=== PATIENT | male | born 1960 | race American Indian/Alaskan Native ===

== ENCOUNTER 2016-08-11 20:52 | Emergency (ER) | payer MEDICAID, OTHER, SELFPAY ==
[2016-08-11] MEDS ORDERED: Sodium Chloride 0.9% 10 ML Syringe FLUSH PRN (21:05)
[2016-08-11 21:58] VITALS: BP 171/81
--- NOTE | 2016-08-11 21:58 | EDM.PDOC ---
ED HPI NEURO - General Chief Complaint: Neuro Symptoms/Deficits Stated Complaint: STROKE Time Seen by Provider: 08/11/16 21:03 Source: Reports: Patient, Family, Old records, RN notes reviewed History Limitations: Reports: No limitations - History of Present Illness INITIAL COMMENTS - FREE TEXT/NARRATIVE: 56-year-old gentleman presents emergency department today with complaint of difficulty speaking symptoms started around 20:00 with problems finding words and problems speaking words, he also has dizziness the dizziness started about 24 hours prior, he does have a history of a pontine stroke one year ago - Related Data Allergies/ADRs: Allergies Allergy/AdvReac Type Severity Reaction Status Date / Time atenolol [From Tenormin] Allergy Cannot Verified 08/11/16 21:19 Remember cephalexin monohydrate Allergy Hives Verified 08/11/16 21:19 [From Keflex] lisinopril [From Zestril] Allergy Cannot Verified 08/11/16 21:19 Remember penicillin V potassium Allergy Hives Verified 08/11/16 21:19 [From Pen-Vee K] Home Meds: Home Meds Escitalopram [Lexapro] 10 mg PO DAILY 09/19/14 [History] Losartan [Cozaar] 100 mg PO DAILY 09/19/14 [History] amLODIPine Besylate [Amlodipine Besylate] 10 mg PO DAILY 09/19/14 [History] metFORMIN [Glucophage] 1,000 mg PO BID 09/19/14 [History] Gabapentin [Gabapentin] 600 mg PO TID 02/12/15 [History] Clopidogrel [Plavix] 75 mg PO DAILY 11/03/15 [History] Omeprazole 20 mg PO DAILY 11/03/15 [History] atorvaSTATin [Lipitor] 40 mg PO DAILY 11/03/15 [History] [place]-3 Fatty Acids [Fish Oil] 600 mg PO BID 08/11/16 [History] Past Medical History HEENT History: Reports: Allergic rhinitis, Impaired vision Cardiovascular History: Reports: High cholesterol, Hypertension Other Cardiovascular History: angiogram Gastrointestinal History: Reports: Chronic diarrhea, GERD Other Gastrointestinal History: due to antx therapy Genitourinary History: Reports: UTI, recurrent Musculoskeletal History: Reports: Fracture, Osteoarthritis Neurological History: Reports: CVA, Neuropathy, diabetic Psychiatric History: Reports: Depression Endocrine/Metabolic History: Reports: Diabetes, type II, Obesity/BMI 30+ Dermatologic History: Reports: Eczema Other Dermatologic History: toe amp rash from sun - Infectious Disease History Infectious Disease History: Reports: Chicken pox - Past Surgical History HEENT Surgical History: Reports: Tonsillectomy GI Surgical History: Reports: Appendectomy, Colonoscopy Male Surgical History: Reports: Other (see below) Other Male Surgeries/Procedures: Cystoscopy Musculoskeletal Surgical History: Reports: Amputation Other Musculoskeletal Surgeries/Procedures:: right foot 2nd and 3rd toe amp Dermatological Surgical History: Reports: Skin graft Social & Family History - Tobacco Use Smoking Status *Q: Former Smoker Years of Tobacco use: 40 Packs/Tins Daily: 1.5 Used Tobacco, but Quit: Yes Month Tobacco Last Used: 06/2016 Second Hand Smoke Exposure: Yes - Caffeine Use Caffeine Use: Reports: Coffee - Alcohol Use Days Per Week of Alcohol Use: 5 Number of Drinks Per Day: 4 Total Drinks Per Week: 20 - Recreational Drug Use Recreational Drug Use: No Drug Use in Last 12 Months: Yes Recreational Drug Type: Reports: Marijuana/Hashish Recreational Drug Use Frequency: Not Used In Over 5 Months ED ROS GENERAL - Review of Systems Review Of Systems: See Below Constitutional: Reports: no symptoms Respiratory: Reports: No Symptoms Cardiovascular: Reports: No symptoms GI/Abdominal: Reports: No symptoms : Reports: no symptoms Neurological: Reports: Trouble Speaking, Other (difficulty with movement in the left arm) ED EXAM, NEURO - Physical Exam Exam: See Below Text/Narrative:: General: male, moderate distress, crying, alert and oriented x3 HEENT: head is atraumatic normocephalic, eyes pupils equal round reactive to light sclera clear no conjunctivitis appreciated. Ears tympanic membrane clear and ospina on the right blocked by cerumen on the left. Nose no septal deviation, nares are clear, no blood present. Mouth mucosa is moist and pink no erythema or exudate noted in soft palate, tongue is midline uvula is midline, dentition is intact. Neck: Supple no thyromegaly no tracheal deviation. Nodes: Cervical nodes subclavicular nodes nontender no palpable lymphadenopathy noted. Lungs: clear to auscultation bilaterally with symmetrical respirations, no adventitious noise appreciated. CV: Regular rate and rhythm S1 and S2 appreciated no murmurs rubs or gallops noted. Abdomen: Soft, nontender, no palpable masses or organomegaly appreciated, no distention no guarding bowel sounds are present, [scars ]. Neuro: Cranial nerves II through XII grossly intact, power is 5 out 5 in upper and lower extremities, finger to nose without difficulty on the right finger to nose on the left is not as smooth as well as rapid alternating movements is disjointed on the left not as smooth, no dysdiadochokinesis Skin: Warm and dry, intact Extremities: No lower extremity edema appreciated Course - Vital Signs Last Recorded V/S: Last Vital Signs Temp 98.3 F 08/11/16 20:59 Pulse 95 08/11/16 20:59 Resp 17 08/11/16 21:27 BP 174/81 H 08/11/16 21:27 Pulse Ox 97 08/11/16 21:27 - Orders/Labs/Meds Orders: Active Orders 24 hr Category Date Time Status EKG Documentation Completion [RC] ASDIRECTED Care 08/11/16 21:05 Active Peripheral IV Care [RC] . DIRECTED Care 08/11/16 21:05 Active Head wo Cont [CT] Urgent Exams 08/11/16 21:05 Taken Sodium Chloride 0.9% [Saline Flush] Med 08/11/16 21:05 Active 10 ml FLUSH ASDIRECTED PRN Peripheral IV Insertion Adult [OM.PC] Urgent Oth 08/11/16 21:05 Ordered EKG 12 Lead [EK] Urgent Ther 08/11/16 21:05 Ordered Medication Orders Sodium Chloride (Saline Flush) 10 ml FLUSH ASDIRECTED PRN PRN Reason: Keep Vein Open Last Admin: 08/11/16 21:29 Dose: 10 ml Labs: Laboratory Tests 08/11/16 08/11/16 08/11/16 Range/Units 21:14 21:14 21:14 WBC 7.2 (4.5-11.0) K/uL RBC 4.96 (4.30-5.90) M/uL Hgb 14.2 (12.0-15.0) g/dL Hct 40.8 (40.0-54.0) % MCV 82 (80-98) fL MCH 29 (27-31) pg MCHC 35 (32-36) % Plt Count 204 (150-400) K/uL Neut % (Auto) 63 (36-66) % Lymph % (Auto) 26 (24-44) % [place] % (Auto) 9 H (2-6) % Eos % (Auto) 2 (2-4) % Baso % (Auto) 1 (0-1) % PT 10.3 (9.5-12.0) sec INR 0.97 (0.80-1.20) APTT 26.1 L (27.0-36.0) sec Sodium 136 L (140-148) mmol/L Potassium 3.9 (3.6-5.2) mmol/L Chloride 100 (100-108) mmol/L Carbon Dioxide 29 (21-32) mmol/L Anion Gap 10.9 (5.0-14.0) mmol/L BUN 14 (7-18) mg/dL Creatinine 1.1 (0.8-1.3) mg/dL Est Cr Clr Drug Dosing 79.27 mL/min Estimated GFR (MDRD) > 60 (>60) Glucose 307 H (74-106) mg/dL Calcium 8.8 (8.5-10.1) mg/dL Total Bilirubin 0.5 (0.2-1.0) mg/dL AST 22 (15-37) U/L ALT 31 (12-78) U/L Alkaline Phosphatase 71 (46-116) U/L Total Protein 6.4 (6.4-8.2) g/dL Albumin 2.7 L (3.4-5.0) g/dL Globulin 3.7 H (2.3-3.5) g/dL Albumin/Globulin Ratio 0.7 L (1.2-2.2) Meds: Medications Generic Name Dose Route Start Last Admin Trade Name Freq PRN Reason Stop Dose Admin Sodium Chloride 10 ml 08/11/16 21:05 08/11/16 21:29 Saline Flush FLUSH 10 ml ASDIRECTED PRN Administration Keep Vein Open Departure - Departure Time of Disposition: 21:57 Disposition: DC/Tfer to Acute Hospital 02 Clinical Impression: TIA (transient ischemic attack) Qualifiers: Transient cerebral ischemia type: other Qualified Code(s): G45.8 - Other transient cerebral ischemic attacks and related syndromes Forms: ED Department Discharge - My Orders Last 24 Hours: My Active Orders 08/11/16 21:05 EKG Documentation Completion [RC] ASDIRECTED Peripheral IV Care [RC] . DIRECTED Head wo Cont [CT] Urgent Sodium Chloride 0.9% [Saline Flush] 10 ml FLUSH ASDIRECTED PRN Peripheral IV Insertion Adult [OM.PC] Urgent EKG 12 Lead [EK] Urgent - Assessment/Plan Last 24 Hours: My Active Orders 08/11/16 21:05 EKG Documentation Completion [RC] ASDIRECTED Peripheral IV Care [RC] . DIRECTED Head wo Cont [CT] Urgent Sodium Chloride 0.9% [Saline Flush] 10 ml FLUSH ASDIRECTED PRN Peripheral IV Insertion Adult [OM.PC] Urgent EKG 12 Lead [EK] Urgent Plan: Assessment Acuity = acute Site and laterality = TIA complicated patient with known history of pontine stroke one year ago on aspirin and Plavix Etiology = probable small vessel disease Manifestations = difficulty with speech dysarthria and dysphagia Location of injury = home Lab values = CBC, CMP within normal limits CT scan shows no acute process EKG demonstrates a sinus rhythm Plan discussed the case with neurology manager documentation because he had history of this dizziness within the last 24 hours and the history of the pontine stroke one year ago elected not to give TPA as the risks outweighed the benefits, agreed to accept the patient at a [facility] for further evaluation Patient was in agreement with the plan all questions were answered, they were instructed to return to the emergency department or call for worsening symptoms. This note was dictated using [employer] voice recognition software please call with any questions.
== END 2016-08-11 22:35 ==
LOC: JP.ED 20:52
DX: G45.8 Other transient cerebral ischemic attacks and related syndromes (principal); E78.00 Pure hypercholesterolemia, unspecified; I10 Essential (primary) hypertension; K21.9 Gastro-esophageal reflux disease without esophagitis; Z87.440 Personal history of urinary (tract) infections; Z86.73 Personal history of transient ischemic attack (TIA), and cerebral infarction without residual deficits; F32.9 Major depressive disorder, single episode, unspecified; E11.9 Type 2 diabetes mellitus without complications; E66.9 Obesity, unspecified; Z79.899 Other long term (current) drug therapy; Z98.890 Other specified postprocedural states; Z90.49 Acquired absence of other specified parts of digestive tract; Z87.891 Personal history of nicotine dependence; Z88.1 Allergy status to other antibiotic agents; Z88.0 Allergy status to penicillin; Z88.8 Allergy status to other drugs, medicaments and biological substances
CPT/HCPCS: 36415; 70450; 80053; 85025; 85610; 85730; 93005; 99285; J7050; 93010; 99284

== ENCOUNTER 2016-12-25 22:18 | Emergency (ER) | payer MEDICAID, SELFPAY ==
--- NOTE | 2016-12-25 23:44 | EDM.PDOC ---
ED HPI GENERAL MEDICAL PROBLEM - General Chief Complaint: Lower Extremity Injury/Pain Stated Complaint: RIGHT FOOT LITTLE TOE PAIN, DIABETIC Time Seen by Provider: 12/25/16 23:34 Source of Information: Reports: Patient, Family, RN Notes Reviewed History Limitations: Reports: No Limitations - History of Present Illness INITIAL COMMENTS - FREE TEXT/NARRATIVE: 86-year-old gentleman presents emergency department today with wound on his right foot, he has a known history of diabetes mellitus type 2 with loss of digits on the right foot consistent with peripheral vascular disease, he states he noticed he's had skin breakdown over the last couple days denies any fevers nausea vomiting shortness breath chest pain no red streaks going up the foot right small toe Pain Score (Numeric/FACES): 5 - Related Data Allergies Allergy/AdvReac Type Severity Reaction Status Date / Time atenolol [From Tenormin] Allergy Cannot Verified 12/25/16 23:24 Remember cephalexin monohydrate Allergy Hives Verified 12/25/16 23:24 [From Keflex] lisinopril [From Zestril] Allergy Cannot Verified 12/25/16 23:24 Remember penicillin V potassium Allergy Hives Verified 12/25/16 23:24 [From Pen-Vee K] Home Meds: Home Meds Escitalopram [Lexapro] 10 mg PO DAILY 09/19/14 [History] Losartan [Cozaar] 100 mg PO DAILY 09/19/14 [History] amLODIPine Besylate [Amlodipine Besylate] 10 mg PO DAILY 09/19/14 [History] metFORMIN [Glucophage] 1,000 mg PO BID 09/19/14 [History] Gabapentin [Gabapentin] 600 mg PO TID 02/12/15 [History] Clopidogrel [Plavix] 75 mg PO DAILY 11/03/15 [History] Omeprazole 20 mg PO DAILY 11/03/15 [History] atorvaSTATin [Lipitor] 40 mg PO DAILY 11/03/15 [History] [place]-3 Fatty Acids [Fish Oil] 600 mg PO BID 08/11/16 [History] Famotidine [Pepcid] 20 mg PO DAILY 12/25/16 [History] Naproxen Sodium [Aleve] 220 mg PO ASDIRECTED PRN 12/25/16 [History] Past Medical History HEENT History: Reports: Allergic Rhinitis, Impaired Vision Cardiovascular History: Reports: High Cholesterol, Hypertension Other Cardiovascular History: angiogram Gastrointestinal History: Reports: Chronic Diarrhea, GERD Other Gastrointestinal History: due to antx therapy Genitourinary History: Reports: UTI, Recurrent Musculoskeletal History: Reports: Fracture, Osteoarthritis Neurological History: Reports: CVA, Neuropathy, Diabetic Psychiatric History: Reports: Depression Endocrine/Metabolic History: Reports: Diabetes, Type II, Obesity/BMI 30+ Other Dermatologic History: toe amp rash from sun - Infectious Disease History Infectious Disease History: Reports: Chicken Pox - Past Surgical History Head Surgeries/Procedures: Reports: None HEENT Surgical History: Reports: None Cardiovascular Surgical History: Reports: None Respiratory Surgical History: Reports: None GI Surgical History: Reports: None Neurological Surgical History: Reports: None Musculoskeletal Surgical History: Reports: Amputation Other Musculoskeletal Surgeries/Procedures:: right foot 2nd and 3rd toe amp Oncologic Surgical History: Reports: None Dermatological Surgical History: Reports: Skin Graft Social & Family History - Tobacco Use Smoking Status *Q: Current Every Day Smoker Years of Tobacco use: 30 Packs/Tins Daily: 0.5 Used Tobacco, but Quit: No Month Tobacco Last Used: 06/2016 Second Hand Smoke Exposure: Yes - Caffeine Use Caffeine Use: Reports: Coffee, Soda - Alcohol Use Days Per Week of Alcohol Use: 5 Number of Drinks Per Day: 4 Total Drinks Per Week: 20 - Recreational Drug Use Recreational Drug Use: No Drug Use in Last 12 Months: Yes Recreational Drug Type: Reports: Marijuana/Hashish Recreational Drug Use Frequency: Not Used In Over 5 Months Review of Systems - Review of Systems Review Of Systems: See Below Constitutional: Denies: Fever Respiratory: Reports: No Symptoms Cardiovascular: Reports: No Symptoms GI/Abdominal: Reports: No Symptoms Skin: Reports: Wound ED EXAM, GENERAL - Physical Exam Exam: See Below Free Text/Narrative:: Examination of left foot he is missing digits 2,3 digit 4 appears to be intact however digit #5 has an open wound on the distal tip it is tender to touch it is erythematous with a black portion of the distal tip Exam Limited By: No Limitations General Appearance: Alert, WD/WN, No Apparent Distress Course - Vital Signs Last Recorded V/S: Last Vital Signs Temp 96.6 F 12/26/16 01:57 Pulse 77 12/26/16 01:57 Resp 16 12/26/16 01:57 BP 127/71 12/26/16 01:57 Pulse Ox 95 12/26/16 01:57 - Orders/Labs/Meds Orders: Active Orders 24 hr Category Date Time Status Peripheral IV Care [RC] . DIRECTED Care 12/26/16 01:07 Active LACTIC ACID [CHEM] Stat Lab 12/25/16 23:57 Received Levofloxacin/Dextrose 5%-Water [Levaquin in D5W 750 MG/ Med 12/26/16 01:06 Active 150 ML] 750 mg Premix Bag 1 bag IV ONETIME Sodium Chloride 0.9% [Saline Flush] Med 12/26/16 01:06 Active 10 ml FLUSH ASDIRECTED PRN Peripheral IV Insertion Adult [OM.PC] Urgent Oth 12/26/16 01:06 Ordered Medication Orders Levofloxacin/Dextrose 750 mg/ (Premix) 150 mls @ 100 mls/hr IV ONETIME ONE Stop: 12/26/16 02:35 Sodium Chloride (Saline Flush) 10 ml FLUSH ASDIRECTED PRN PRN Reason: Keep Vein Open Last Admin: 12/26/16 01:54 Dose: 10 ml Labs: Laboratory Tests 12/25/16 12/25/16 Range/Units 23:39 23:57 WBC 6.7 (4.5-11.0) K/uL RBC 4.72 (4.30-5.90) M/uL Hgb 13.0 (12.0-15.0) g/dL Hct 37.9 L (40.0-54.0) % MCV 80 (80-98) fL MCH 28 (27-31) pg MCHC 34 (32-36) % Plt Count 218 (150-400) K/uL Neut % (Auto) 64 (36-66) % Lymph % (Auto) 26 (24-44) % [place] % (Auto) 9 H (2-6) % Eos % (Auto) 2 (2-4) % Baso % (Auto) 0 (0-1) % Sodium 134 L (140-148) mmol/L Potassium 3.8 (3.6-5.2) mmol/L Chloride 99 L (100-108) mmol/L Carbon Dioxide 27 (21-32) mmol/L Anion Gap 11.8 (5.0-14.0) mmol/L BUN 15 (7-18) mg/dL Creatinine 1.4 H (0.8-1.3) mg/dL Est Cr Clr Drug Dosing 62.28 mL/min Estimated GFR (MDRD) 53 L (>60) Glucose 109 H (74-106) mg/dL Calcium 8.6 (8.5-10.1) mg/dL Total Bilirubin 0.6 (0.2-1.0) mg/dL AST 23 (15-37) U/L ALT 18 (12-78) U/L Alkaline Phosphatase 109 (46-116) U/L C-Reactive Protein 2.19 H (0.0-0.3) mg/dL Total Protein 6.6 (6.4-8.2) g/dL Albumin 2.6 L (3.4-5.0) g/dL Globulin 4.0 H (2.3-3.5) g/dL Albumin/Globulin Ratio 0.7 L (1.2-2.2) Meds: Medications Generic Name Dose Route Start Last Admin Trade Name Freq PRN Reason Stop Dose Admin Levofloxacin/Dextrose 750 mg/ 150 mls @ 100 mls/hr 12/26/16 01:06 Premix IV 12/26/16 02:35 ONETIME ONE Sodium Chloride 10 ml 12/26/16 01:06 12/26/16 01:54 Saline Flush FLUSH 10 ml ASDIRECTED PRN Administration Keep Vein Open Discontinued Medications Generic Name Dose Route Start Last Admin Trade Name Freq PRN Reason Stop Dose Admin Hydromorphone HCl 1 mg 12/26/16 01:31 12/26/16 01:49 Dilaudid IVPUSH 12/26/16 01:32 1 mg ONETIME ONE Administration Clindamycin Phosphate 600 mg/ 54 mls @ 100 mls/hr 12/26/16 01:06 12/26/16 01: 54 Sodium Chloride IV 12/26/16 01:38 100 mls/hr ONETIME ONE Administration Departure - Departure Time of Disposition: 03:30 Disposition: Home, Self-Care 01 Condition: Fair Clinical Impression: Diabetic foot ulcer Qualifiers: Diabetic foot ulcer location: toe Diabetes mellitus type: type 2 Laterality: right Non-pressure ulcer stage: with fat layer exposed Qualified Code(s): E11.621 - Type 2 diabetes mellitus with foot ulcer; L97.512 - Non-pressure chronic ulcer of other part of right foot with fat layer exposed - Discharge Information Forms: ED Department Discharge Additional Instructions: Take full course of antibiotics, please follow-up with Dr. Jama and wound care next week - My Orders Last 24 Hours: My Active Orders 12/25/16 23:57 LACTIC ACID [CHEM] Stat 12/26/16 01:06 Levofloxacin/Dextrose 5%-Water [Levaquin in D5W 750 MG/150 ML] 750 mg Premix Bag 1 bag IV ONETIME Sodium Chloride 0.9% [Saline Flush] 10 ml FLUSH ASDIRECTED PRN Peripheral IV Insertion Adult [OM.PC] Urgent 12/26/16 01:07 Peripheral IV Care [RC] . DIRECTED - Assessment/Plan Last 24 Hours: My Active Orders 12/25/16 23:57 LACTIC ACID [CHEM] Stat 12/26/16 01:06 Levofloxacin/Dextrose 5%-Water [Levaquin in D5W 750 MG/150 ML] 750 mg Premix Bag 1 bag IV ONETIME Sodium Chloride 0.9% [Saline Flush] 10 ml FLUSH ASDIRECTED PRN Peripheral IV Insertion Adult [OM.PC] Urgent 12/26/16 01:07 Peripheral IV Care [RC] . DIRECTED Plan: Assessment Acuity = acute Site and laterality = diabetic foot ulcer Etiology = probably related to peripheral vascular disease Manifestations = pain and infection Location of injury = Home Lab values = CBC within normal limits sodium low at 134 consistent hyponatremia creatinine elevated at 1.4 consistent with chronic renal failure stage GIII a, lactic acid normal at 1.6, CRP mildly elevated 2.19 Plan He was given 1 dose of levofloxacin and clindamycin started on both those antibiotics orally he'll be set up with Dr. Hall in wound care next week Patient was in agreement with the plan all questions were answered, they were instructed to return to the emergency department or call for worsening symptoms. This note was dictated using [employer] voice recognition software please call with any questions.
[2016-12-26] MEDS ORDERED: Levofloxacin/Dextrose 5%-Water 750 MG in Premix Bag 1 BAG IV ONE (01:06)
[2016-12-26] MEDS ORDERED: Sodium Chloride 0.9% 10 ML Syringe FLUSH PRN (01:06)
[2016-12-26] MEDS ORDERED: HYDROmorphone 1 MG/ML Syringe IVPUSH ONE ×2 (01:31→03:54)
[2016-12-26 01:58] VITALS: BP 127/71
== END 2016-12-26 04:20 | disposition home or self-care (01) ==
LOC: JP.ED 22:18
DX: E11.621 Type 2 diabetes mellitus with foot ulcer (principal); L97.521 Non-pressure chronic ulcer of other part of left foot limited to breakdown of skin; E78.00 Pure hypercholesterolemia, unspecified; I10 Essential (primary) hypertension; K21.9 Gastro-esophageal reflux disease without esophagitis; M19.90 Unspecified osteoarthritis, unspecified site; E66.9 Obesity, unspecified; F17.210 Nicotine dependence, cigarettes, uncomplicated; F32.9 Major depressive disorder, single episode, unspecified; E11.40 Type 2 diabetes mellitus with diabetic neuropathy, unspecified; Z87.440 Personal history of urinary (tract) infections; Z88.0 Allergy status to penicillin; Z88.8 Allergy status to other drugs, medicaments and biological substances; Z79.899 Other long term (current) drug therapy; Z79.84 Long term (current) use of oral hypoglycemic drugs; Z89.431 Acquired absence of right foot; Z68.31 Body mass index [BMI] 31.0-31.9, adult; Z86.73 Personal history of transient ischemic attack (TIA), and cerebral infarction without residual deficits
CPT/HCPCS: 36415; 80053; 83605; 85025; 86140; 96365; 96367; 96375; 96376; 99284; J1170; J1956; J7050; S0077

== ENCOUNTER 2017-06-17 12:25 | Emergency (ER) | payer MEDICAID, MEDICARE, OTHER ==
[2017-06-17 12:50] VITALS: BP 139/69
[2017-06-17] MEDS ORDERED: traMADol 50 MG Tab PO ONE (13:17)
[2017-06-17] MEDS ORDERED: Diphtheria,Pertussis(Acell),Tetanus Vaccine 0.5 ML SDV IM ONE (13:18)
--- NOTE | 2017-06-17 13:26 | EDM.PDOC ---
ED HPI GENERAL MEDICAL PROBLEM - General Chief Complaint: Neurological Problem Stated Complaint: [facility] Time Seen by Provider: 06/17/17 13:10 Source of Information: Reports: Patient, Family, Old Records History Limitations: Reports: No Limitations - History of Present Illness INITIAL COMMENTS - FREE TEXT/NARRATIVE: 57 yo male with diabetic peripheral neuropathy and diabetic foot ulcers presents with uncontrolled pain in his feet. Not able to sleep due to the pain. Saw our local surgeon regarding the ulcers and was advised to first see a vascular surgeon to see if his circulation could be improved to facilitate healing if any foot surgery were performed. He has not been able to find a ride to [place] to see the vascular surgeon and as a result has missed 3 appts. Is taking gabapentin 600 tid without relief. Had Baclofen 10 mg tid that helped a little, but he is out of it. Is in the process of switching his care from [place] to a local provider. Has not been taking good care of his foot ulcers. Lives alone most of the time. Onset: Gradual Duration: Chronic, Other (months to years) Location: Reports: Lower Extremity, Left, Lower Extremity, Right Quality: Reports: Burning Severity: Severe Improves with: Reports: Medication Worsens with: Reports: Other (time), Movement (touching areas) Context: Reports: Other (AODM) Associated Symptoms: Reports: No Other Symptoms. 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 (see below) (Gabapentin tid) Bilateral Feet Pain Score (Numeric/FACES): 10 - Related Data Allergies Allergy/AdvReac Type Severity Reaction Status Date / Time atenolol [From Tenormin] Allergy Cannot Verified 12/25/16 23:24 Remember cephalexin monohydrate Allergy Hives Verified 12/25/16 23:24 [From Keflex] lisinopril [From Zestril] Allergy Cannot Verified 12/25/16 23:24 Remember penicillin V potassium Allergy Hives Verified 12/25/16 23:24 [From Pen-Vee K] Home Meds: Home Meds Escitalopram [Lexapro] 10 mg PO DAILY 09/19/14 [History] Losartan [Cozaar] 100 mg PO DAILY 09/19/14 [History] amLODIPine Besylate [Amlodipine Besylate] 10 mg PO DAILY 09/19/14 [History] metFORMIN [Glucophage] 1,000 mg PO BID 09/19/14 [History] Gabapentin [Gabapentin] 600 mg PO TID 02/12/15 [History] Clopidogrel [Plavix] 75 mg PO DAILY 11/03/15 [History] atorvaSTATin [Lipitor] 40 mg PO DAILY 11/03/15 [History] Famotidine [Pepcid] 20 mg PO DAILY 12/25/16 [History] Naproxen Sodium [Aleve] 220 mg PO ASDIRECTED PRN 12/25/16 [History] Baclofen 1 tab PO DAILY 06/17/17 [History] Past Medical History HEENT History: Reports: Allergic Rhinitis, Impaired Vision Cardiovascular History: Reports: High Cholesterol, Hypertension Other Cardiovascular History: angiogram Respiratory History: Reports: None Gastrointestinal History: Reports: Chronic Diarrhea, GERD Other Gastrointestinal History: due to antx therapy Genitourinary History: Reports: UTI, Recurrent Musculoskeletal History: Reports: Fracture, Osteoarthritis Neurological History: Reports: CVA, Neuropathy, Diabetic Psychiatric History: Reports: Depression Endocrine/Metabolic History: Reports: Diabetes, Type II, Obesity/BMI 30+ Hematologic History: Reports: None Immunologic History: Reports: None Oncologic (Cancer) History: Reports: None Dermatologic History: Reports: None Other Dermatologic History: toe amp rash from sun - Infectious Disease History Infectious Disease History: Reports: Chicken Pox - Past Surgical History Head Surgeries/Procedures: Reports: None HEENT Surgical History: Reports: None Cardiovascular Surgical History: Reports: None Respiratory Surgical History: Reports: None GI Surgical History: Reports: None Neurological Surgical History: Reports: None Musculoskeletal Surgical History: Reports: Amputation Other Musculoskeletal Surgeries/Procedures:: right foot 2nd and 3rd toe amp Dermatological Surgical History: Reports: Skin Graft Social & Family History - Tobacco Use Smoking Status *Q: Current Every Day Smoker Years of Tobacco use: 40 Packs/Tins Daily: 0.5 Used Tobacco, but Quit: No Month Tobacco Last Used: 06/2016 Second Hand Smoke Exposure: Yes - Caffeine Use Caffeine Use: Reports: Coffee - Alcohol Use Days Per Week of Alcohol Use: 5 Number of Drinks Per Day: 4 Total Drinks Per Week: 20 - Recreational Drug Use Recreational Drug Use: Yes Drug Use in Last 12 Months: Yes Recreational Drug Type: Reports: Marijuana/Hashish Recreational Drug Use Frequency: Rarely ED ROS GENERAL - Review of Systems Review Of Systems: See Below Constitutional: Reports: No Symptoms HEENT: Reports: No Symptoms Respiratory: Reports: No Symptoms Cardiovascular: Reports: No Symptoms Endocrine: Reports: No Symptoms GI/Abdominal: Reports: No Symptoms : Reports: No Symptoms Skin: Reports: Erythema, Wound (diabetic foot ulcers of both feet, the worst is the lateral L foot. ), Change in Color Neurological: Reports: Numbness, Paresthesia, Tingling, Other (burning pain) ED EXAM, NEURO - Physical Exam Exam: See Below Exam Limited By: No Limitations General Appearance: Alert, WD/WN, Mild Distress Respiratory/Chest: No Respiratory Distress, Lungs Clear, Normal Breath Sounds, No Accessory Muscle Use Cardiovascular: Regular Rate, Rhythm, No Edema Neurological: Alert, Normal Mood/Affect, CN II-XII Intact, Oriented x 3, Abnormal Sensation, Abnormal Light Touch Back Exam: Normal Inspection Extremities: Pedal Edema, Redness (of feet without increased warmth.). No: Increased Warmth Psychiatric: Normal Affect, Normal Mood Skin Exam: Erythema, Wound/Incision (diabetic foot ulcers bilat, L lateral foot is worse with foul odor. No increased warmth. Cap refill delayed.) Course - Vital Signs Text/Narrative:: Accucheck 211 Feet soaked, cleaned, and dressings changed. Tramadol 100 mg po with partial relief. Last Recorded V/S: Last Vital Signs Temp 37.7 C 06/17/17 13:02 Pulse 98 06/17/17 13:02 Resp 16 06/17/17 13:02 BP 139/69 06/17/17 13:02 Pulse Ox 98 06/17/17 13:02 - Orders/Labs/Meds Orders: Active Orders 24 hr Category Date Time Status Vaccines to be Administered [RC] PER UNIT ROUTINE Care 06/17/17 13:18 Active Meds: Medications Discontinued Medications Generic Name Dose Route Start Last Admin Trade Name Freq PRN Reason Stop Dose Admin Diphtheria/Tetanus/Acell Pertussis 0.5 ml 06/17/17 13:18 06/17/17 13:24 Adacel IM 06/17/17 13:19 0.5 ml .ONCE ONE Administration Tramadol HCl 100 mg 06/17/17 13:17 06/17/17 13:26 Ultram PO 06/17/17 13:18 100 mg ONETIME ONE Administration Departure - Departure Time of Disposition: 15:00 Disposition: Home, Self-Care 01 Condition: Fair Clinical Impression: Neuropathic pain of both legs Diabetic foot ulcers Qualifiers: Diabetic foot ulcer location: toe Diabetes mellitus type: type 2 Laterality: left Non-pressure ulcer stage: unspecified non-pressure ulcer stage Qualified Code(s): E11.621 - Type 2 diabetes mellitus with foot ulcer; L97.529 - Non- pressure chronic ulcer of other part of left foot with unspecified severity; L97.529 - Non-pressure chronic ulcer of other part of left foot with unspecified severity; L97.529 - Non-pressure chronic ulcer of other part of left foot with unspecified severity; L97.529 - Non-pressure chronic ulcer of other part of left foot with unspecified severity Type 2 diabetes mellitus Qualifiers: Diabetes mellitus complication status: with circulatory complication Diabetes mellitus complication detail: with peripheral angiopathy with gangrene Diabetes mellitus jail insulin use: with jail use Qualified Code(s): E11.52 - Type 2 diabetes mellitus with diabetic peripheral angiopathy with gangrene; Z79.4 - director long term care (current) use of insulin; Z79.4 - long-term (current) use of insulin; Z79.4 - long-term (current) use of insulin; Z79.4 - long-term (current ) use of insulin - Discharge Information Referrals: PCP,None [Primary Care Provider] - Forms: ED Department Discharge - My Orders Last 24 Hours: My Active Orders 06/17/17 13:18 Vaccines to be Administered [RC] PER UNIT ROUTINE - Assessment/Plan Last 24 Hours: My Active Orders 06/17/17 13:18 Vaccines to be Administered [RC] PER UNIT ROUTINE
== END 2017-06-17 15:16 | disposition home or self-care (01) ==
LOC: JP.ED 12:25
DX: E11.621 Type 2 diabetes mellitus with foot ulcer (principal); L97.529 Non-pressure chronic ulcer of other part of left foot with unspecified severity; L97.519 Non-pressure chronic ulcer of other part of right foot with unspecified severity; E11.52 Type 2 diabetes mellitus with diabetic peripheral angiopathy with gangrene; E11.40 Type 2 diabetes mellitus with diabetic neuropathy, unspecified; F17.210 Nicotine dependence, cigarettes, uncomplicated; I10 Essential (primary) hypertension; E78.00 Pure hypercholesterolemia, unspecified; F32.9 Major depressive disorder, single episode, unspecified; Z79.4 Long term (current) use of insulin; Z79.84 Long term (current) use of oral hypoglycemic drugs; Z79.02 Long term (current) use of antithrombotics/antiplatelets; Z79.899 Other long term (current) drug therapy; Z88.0 Allergy status to penicillin; Z88.1 Allergy status to other antibiotic agents; Z88.8 Allergy status to other drugs, medicaments and biological substances; Z23 Encounter for immunization
CPT/HCPCS: 82962; 90471; 90715; 99284; A9270

== ENCOUNTER 2018-10-23 14:02 | Inpatient (IN) | payer MEDICARE ==
--- NOTE | 2018-10-23 14:48 | EDM.PDOC ---
ED HPI GENERAL MEDICAL PROBLEM - General Chief Complaint: Genitourinary Problem Stated Complaint: SWOLLEN TESTICLE Time Seen by Provider: 10/23/18 14:25 Source of Information: Reports: Patient, Old Records History Limitations: Reports: Other (incomplete history) - History of Present Illness INITIAL COMMENTS - FREE TEXT/NARRATIVE: 58 yo male here with gradually increased swelling of his scrotum and foreskin over the past 3 days or so. Has not had a fever. Is uncircumcised. Urine is a different color "milky", but it does not hurt to void. No injury to the area. He is now unable to retract his foreskin. Has poorly controlled diabetes. Has not tried to get into his doctor's office for this. 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 below) (topical antifungal cream) Scrotum Pain Score (Numeric/FACES): 10 - Related Data Allergies Allergy/AdvReac Type Severity Reaction Status Date / Time atenolol [From Tenormin] Allergy Cannot Verified 10/23/18 14:40 Remember cephalexin monohydrate Allergy Hives Verified 10/23/18 14:40 [From Keflex] lisinopril [From Zestril] Allergy Cannot Verified 10/23/18 14:40 Remember penicillin V potassium Allergy Hives Verified 10/23/18 14:40 [From Pen-Vee K] Home Meds: Home Meds Escitalopram [Lexapro] 10 mg PO DAILY 09/19/14 [History] Losartan [Cozaar] 50 mg PO DAILY 09/19/14 [History] amLODIPine Besylate [Amlodipine Besylate] 10 mg PO DAILY 09/19/14 [History] metFORMIN [Glucophage] 1,000 mg PO BID 09/19/14 [History] Gabapentin 600 mg PO QID 02/12/15 [History] Clopidogrel [Plavix] 75 mg PO DAILY 11/03/15 [History] atorvaSTATin [Lipitor] 40 mg PO DAILY 11/03/15 [History] Famotidine [Pepcid] 20 mg PO DAILY 12/25/16 [History] Baclofen 10 mg PO TID #14 tablet 06/17/17 [Rx] Aspirin [Children's Aspirin] 81 mg PO DAILY 09/10/18 [History] Carvedilol 12.5 mg PO DAILY 09/10/18 [History] Past Medical History HEENT History: Reports: Allergic Rhinitis, Impaired Vision Cardiovascular History: Reports: High Cholesterol, Hypertension Other Cardiovascular History: angiogram Respiratory History: Reports: None Gastrointestinal History: Reports: Chronic Diarrhea, GERD Other Gastrointestinal History: due to antx therapy Genitourinary History: Reports: UTI, Recurrent Musculoskeletal History: Reports: Fracture, Osteoarthritis Neurological History: Reports: CVA, Neuropathy, Diabetic Psychiatric History: Reports: Depression Endocrine/Metabolic History: Reports: Diabetes, Type II, Obesity/BMI 30+ Hematologic History: Reports: None Immunologic History: Reports: None Oncologic (Cancer) History: Reports: None Dermatologic History: Reports: None Other Dermatologic History: toe amp rash from sun - Infectious Disease History Infectious Disease History: Reports: Chicken Pox - Past Surgical History Head Surgeries/Procedures: Reports: None HEENT Surgical History: Reports: None Cardiovascular Surgical History: Reports: None Respiratory Surgical History: Reports: None GI Surgical History: Reports: None Neurological Surgical History: Reports: None Musculoskeletal Surgical History: Reports: Amputation Other Musculoskeletal Surgeries/Procedures:: right foot 2nd and 3rd toe amp Dermatological Surgical History: Reports: Skin Graft Social & Family History - Caffeine Use Caffeine Use: Reports: Coffee ED ROS GENERAL - Review of Systems Review Of Systems: See Below Constitutional: Reports: No Symptoms GI/Abdominal: Reports: No Symptoms : Reports: Other (scrotal swelling) Musculoskeletal: Reports: No Symptoms Skin: Reports: No Symptoms ED EXAM, RENAL/ - Physical Exam Exam: See Below Exam Limited By: No Limitations General Appearance: Alert, WD/WN, No Apparent Distress, Obese (Male) Exam: Scrotal Swelling, Scrotum Tenderness (L), Scrotum Tenderness (R) . No: Circumcised, Cremasteric Reflex Neurological: Alert, Oriented, CN II-XII Intact, Normal Cognition, No Motor/ Sensory Deficits Skin Exam: Warm, Dry, Intact, Normal Color, No Rash EKG INTERPRETATION EKG Date: 10/23/18 Time: 15:30 Rhythm: NSR Rate (Beats/Min): 87 [place]: Normal P-Wave: Present QRS: Normal ST-T: Normal QT: Normal Comparison: No Change Course - Vital Signs Text/Narrative:: discussed with Dr. Platt @ [id number] Last Recorded V/S: Last Vital Signs Temp 35.8 C 10/23/18 14:30 Pulse 93 10/23/18 16:34 Resp 16 10/23/18 15:47 BP 135/76 10/23/18 16:34 Pulse Ox 99 10/23/18 16:34 - Orders/Labs/Meds Orders: Active Orders 24 hr Category Date Time Status EKG Documentation Completion [RC] ASDIRECTED Care 10/23/18 15:13 Active UA W/MICROSCOPIC [URIN] Stat Lab 10/23/18 14:37 Ordered Sodium Chloride 0.9% [Normal Saline] 500 ml Med 10/23/18 16:51 Active IV .BOLUS EKG 12 Lead [EK] Routine Ther 10/23/18 15:12 Ordered Medication Orders Sodium Chloride (Normal Saline) 500 mls @ 1,000 mls/hr IV .BOLUS ONE Stop: 10/23/18 17:20 Labs: Laboratory Tests 10/23/18 10/23/18 Range/Units 14:48 14:48 WBC 9.2 (4.5-11.0) K/uL RBC 3.71 L (4.30-5.90) M/uL Hgb 9.9 L D (12.0-15.0) g/dL Hct 31.2 L (40.0-54.0) % MCV 84 (80-98) fL MCH 27 (27-31) pg MCHC 32 (32-36) % Plt Count 189 (150-400) K/uL Sodium 139 L (140-148) mmol/L Potassium 6.2 H* (3.6-5.2) mmol/L Chloride 108 (100-108) mmol/L Carbon Dioxide 26 (21-32) mmol/L Anion Gap 11.2 (5.0-14.0) mmol/L BUN 37 H D (7-18) mg/dL Creatinine 3.0 H D (0.8-1.3) mg/dL Est Cr Clr Drug Dosing TNP Estimated GFR (MDRD) 22 L (>60) Glucose 150 H (74-106) mg/dL Calcium 8.5 (8.5-10.1) mg/dL C-Reactive Protein 3.53 H (0.0-0.3) mg/dL Meds: Medications Generic Name Dose Route Start Last Admin Trade Name Freq PRN Reason Stop Dose Admin Sodium Chloride 500 mls @ 1,000 mls/hr 10/23/18 16:51 Normal Saline IV 10/23/18 17:20 .BOLUS ONE Discontinued Medications Generic Name Dose Route Start Last Admin Trade Name Freq PRN Reason Stop Dose Admin Hydrocodone Bitart/Acetaminophen 1 tab 10/23/18 15:09 10/23/18 15:31 [place] 325-5 Mg PO 10/23/18 15:10 1 tab ONETIME ONE Administration Levofloxacin/Dextrose 750 mg/ 150 mls @ 100 mls/hr 10/23/18 15:11 10/23/18 15 :41 Premix IV 10/23/18 16:40 100 mls/hr ONETIME ONE Administration Sodium Chloride 1,000 mls @ 1,000 mls/hr 10/23/18 15:11 10/23/18 15:38 Normal Saline IV 10/23/18 16:10 1,000 mls/hr .BOLUS ONE Administration Departure - Departure Time of Disposition: 17:00 Disposition: Admitted As Inpatient 68 Clinical Impression: Hyperkalemia, Scrotal swelling Acute renal failure Qualifiers: Acute renal failure type: unspecified Qualified Code(s): N17.9 - Acute kidney failure, unspecified - Discharge Information *PRESCRIPTION DRUG MONITORING PROGRAM REVIEWED*: No *COPY OF PRESCRIPTION DRUG MONITORING REPORT IN PATIENT ANKITA: No Referrals: Sumanth Hill, [employer] PAT[employer] [Primary Care Provider] - Forms: ED Department Discharge - My Orders Last 24 Hours: My Active Orders 10/23/18 14:37 UA W/MICROSCOPIC [URIN] Stat 10/23/18 15:12 EKG 12 Lead [EK] Routine 10/23/18 15:13 EKG Documentation Completion [RC] ASDIRECTED 10/23/18 16:51 Sodium Chloride 0.9% [Normal Saline] 500 ml IV .BOLUS - Assessment/Plan Last 24 Hours: My Active Orders 10/23/18 14:37 UA W/MICROSCOPIC [URIN] Stat 10/23/18 15:12 EKG 12 Lead [EK] Routine 10/23/18 15:13 EKG Documentation Completion [RC] ASDIRECTED 10/23/18 16:51 Sodium Chloride 0.9% [Normal Saline] 500 ml IV .BOLUS
[2018-10-23] MEDS ORDERED: Acetaminophen/HYDROcodone 325-5 MG Tab PO ONE (15:09)
[2018-10-23] MEDS ORDERED: Sodium Chloride 0.9% 1,000 ML IV ONE (15:11)
[2018-10-23] MEDS ORDERED: Levofloxacin/Dextrose 5%-Water 750 MG in Premix Bag 1 BAG IV ONE (15:11)
[2018-10-23] MEDS ORDERED: Sodium Chloride 0.9% 500 ML IV ONE (16:51)
--- NOTE | 2018-10-23 17:14 | PCM.HP ---
H&P History of Present Illness - General Date of Service: 10/23/18 Admit Problem/Dx: Admission Diagnosis/Problem Admission Diagnosis/Problem Cellulitis Source of Information: Patient, Old Records, Provider, RN Notes Reviewed History Limitations: Reports: No Limitations - History of Present Illness Initial Comments - Free Text/Narative: Mr. Turner is a 58-year-old gentleman who was admitted through the emergency department with progressive weakness, scrotal swelling and tenderness, secondary to cellulitis with acute kidney injury and hyperkalemia. He has a known history of long-standing type 2 diabetes mellitus. 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 He felt that he developed a urinary tract infection approximately 5 days prior to admission. Over the last 3 days his experienced significant scrotal tenderness and swelling. He has not been aware of significant fevers or chills, but his appetite has been diminished. On evaluation in the emergency department his creatinine is significantly elevated from baseline and his potassium is elevated at 6.2. Scrotum Pain Score (Numeric/FACES): 10 - Related Data Allergies/Adverse Reactions: Allergies Allergy/AdvReac Type Severity Reaction Status Date / Time atenolol [From Tenormin] Allergy Cannot Verified 10/23/18 14:40 Remember cephalexin monohydrate Allergy Hives Verified 10/23/18 14:40 [From Keflex] lisinopril [From Zestril] Allergy Cannot Verified 10/23/18 14:40 Remember penicillin V potassium Allergy Hives Verified 10/23/18 14:40 [From Pen-Vee K] Home Medications: Home Meds Escitalopram [Lexapro] 10 mg PO DAILY 09/19/14 [History] Losartan [Cozaar] 50 mg PO DAILY 09/19/14 [History] amLODIPine Besylate [Amlodipine Besylate] 10 mg PO DAILY 09/19/14 [History] metFORMIN [Glucophage] 1,000 mg PO BIDMEALS 09/19/14 [History] Gabapentin 600 mg PO QID 02/12/15 [History] Clopidogrel [Plavix] 75 mg PO DAILY 11/03/15 [History] atorvaSTATin [Lipitor] 40 mg PO DAILY 11/03/15 [History] Famotidine [Pepcid] 20 mg PO DAILY 12/25/16 [History] Baclofen 10 mg PO TID #14 tablet 06/17/17 [Rx] Aspirin [Children's Aspirin] 81 mg PO DAILY 09/10/18 [History] Carvedilol 12.5 mg PO DAILY 09/10/18 [History] Past Medical History HEENT History: Reports: Allergic Rhinitis, Impaired Vision Cardiovascular History: Reports: High Cholesterol, Hypertension Other Cardiovascular History: angiogram Respiratory History: Reports: None Gastrointestinal History: Reports: Chronic Diarrhea, GERD Other Gastrointestinal History: due to antx therapy Genitourinary History: Reports: UTI, Recurrent Musculoskeletal History: Reports: Fracture, Osteoarthritis Neurological History: Reports: CVA, Neuropathy, Diabetic Psychiatric History: Reports: Depression Endocrine/Metabolic History: Reports: Diabetes, Type II, Obesity/BMI 30+ Hematologic History: Reports: None Immunologic History: Reports: None Oncologic (Cancer) History: Reports: None Dermatologic History: Reports: None Other Dermatologic History: toe amp rash from sun - Infectious Disease History Infectious Disease History: Reports: Chicken Pox - Past Surgical History Head Surgeries/Procedures: Reports: None HEENT Surgical History: Reports: None Cardiovascular Surgical History: Reports: None Respiratory Surgical History: Reports: None GI Surgical History: Reports: None Neurological Surgical History: Reports: None Musculoskeletal Surgical History: Reports: Amputation Other Musculoskeletal Surgeries/Procedures:: right foot 2nd and 3rd toe amp Dermatological Surgical History: Reports: Skin Graft Social & Family History - Tobacco Use Smoking Status *Q: Current Every Day Smoker Years of Tobacco use: 35 Packs/Tins Daily: 1 - Caffeine Use Caffeine Use: Reports: Coffee - Recreational Drug Use Recreational Drug Type: Reports: Marijuana/Hashish H&P Review of Systems - Review of Systems: Review Of Systems: See Below General: Reports: Malaise, Weakness, Fatigue. Denies: Fever, Chills HEENT: Reports: No Symptoms Pulmonary: Reports: No Symptoms Cardiovascular: Reports: No Symptoms Gastrointestinal: Reports: No Symptoms Genitourinary: Reports: Frequency, Burning. Denies: Hematuria, Discharge Musculoskeletal: Reports: No Symptoms Skin: Reports: Other (Scrotal pain and swelling) Psychiatric: Reports: No Symptoms Neurological: Reports: No Symptoms Hematologic/Lymphatic: Reports: No Symptoms Immunologic: Reports: No Symptoms Exam - Exam Exam: See Below - Vital Signs Vital Signs: Last Vital Signs Temp 96.5 F 10/23/18 14:30 Pulse 93 10/23/18 16:34 Resp 16 10/23/18 15:47 BP 135/76 10/23/18 16:34 Pulse Ox 99 10/23/18 16:34 Weight: 280 lb - Exam Quality Assessment: DVT Prophylaxis General: Alert, Oriented, Cooperative, Moderate Distress HEENT: Conjunctiva Clear, Hearing Intact, Normal Nasal Septum, Posterior Pharynx Clear, Pupils Equal. No: Mucosa Moist & Henriette Neck: Supple, Trachea Midline, +2 Carotid Pulse wo Bruit Lungs: Clear to Auscultation, Normal Respiratory Effort Cardiovascular: Regular Rate, Regular Rhythm, Normal S1, Normal S2 GI/Abdominal Exam: Soft, Non-Tender, No Organomegaly, No Distention (Male) Exam: Scrotal Swelling, Scrotum Tenderness (L), Scrotum Tenderness (R) , Other (Scrotal erythema, no increase in warmth) Back Exam: Normal Inspection, Full Range of Motion Extremities: Non-Tender, Pedal Edema, Other (Left below the knee amputation) Skin: Warm, Dry Neurological: Cranial Nerves Intact, Strength Equal Bilateral, Normal Speech, Normal Tone, Sensation Intact (Decreased sensation in the feet consistent with peripheral neuropathy) Neuro Extensive - Mental Status: Alert, Oriented x3, Normal Mood/Affect, Normal Cognition, Memory Intact - Patient Data Lab Results Last 24 hrs: Laboratory Results - last 24 hr 10/23/18 10/23/18 Range/Units 14:48 14:48 WBC 9.2 (4.5-11.0) K/uL RBC 3.71 L (4.30-5.90) M/uL Hgb 9.9 L D (12.0-15.0) g/dL Hct 31.2 L (40.0-54.0) % MCV 84 (80-98) fL MCH 27 (27-31) pg MCHC 32 (32-36) % Plt Count 189 (150-400) K/uL Sodium 139 L (140-148) mmol/L Potassium 6.2 H* (3.6-5.2) mmol/L Chloride 108 (100-108) mmol/L Carbon Dioxide 26 (21-32) mmol/L Anion Gap 11.2 (5.0-14.0) mmol/L BUN 37 H D (7-18) mg/dL Creatinine 3.0 H D (0.8-1.3) mg/dL Est Cr Clr Drug Dosing TNP Estimated GFR (MDRD) 22 L (>60) Glucose 150 H (74-106) mg/dL Calcium 8.5 (8.5-10.1) mg/dL C-Reactive Protein 3.53 H (0.0-0.3) mg/dL Result Diagrams: 10/23/18 14:48 10/23/18 14:48 *Q Meaningful Use (ADM) - VTE Risk Assess *Q Each Risk Factor Represents 1 Point: Age 41 - 59 years, Obesity ( BMI > 25 kg/m2 ) Total Score 1 Point Risk Factors: 2 Each Risk Factor Represents 2 Points: None Total Score 2 Point Risk Factors: 0 Each Risk Factor Represents 3 Points: None Total Score 3 Point Risk Factors: 0 Each Risk Factor Represents 5 Points: None Total Score 5 Point Risk Factors: 0 Venous Thromboembolism Risk Factor Score *Q: 2 Problem List Initiated/Reviewed/Updated: Yes Orders Last 24hrs: Active Orders 24 hr Category Date Time Status Patient Status Manage Transfer [TRANSFER] Routine ADT 10/23/18 17:02 Ordered EKG Documentation Completion [RC] ASDIRECTED Care 10/23/18 15:13 Active UA W/MICROSCOPIC [URIN] Stat Lab 10/23/18 14:37 Ordered Sodium Chloride 0.9% [Normal Saline] 500 ml Med 10/23/18 16:51 Active IV .BOLUS Resuscitation Status Routine Resus Stat 10/23/18 17:04 Ordered EKG 12 Lead [EK] Routine Ther 10/23/18 15:12 Ordered Medication Orders Sodium Chloride (Normal Saline) 500 mls @ 1,000 mls/hr IV .BOLUS ONE Stop: 10/23/18 17:20 Last Admin: 10/23/18 16:54 Dose: 1,000 mls/hr Assessment/Plan Comment:: ASSESSMENT AND PLAN SCROTAL SWELLING AND TENDERNESS-scrotum is noted to be erythematous, not warm. Probable underlying infection, at the present time area of inflammation seems to be limited to the scrotum. He is not septic and does have a normal white blood cell count. -IV fluids for hydration -Blood cultures pending -Broad-spectrum IV antibiotic therapy with vancomycin and Zosyn, ending culture results -Monitor closely for any evidence of extension of the infection. ACUTE KIDNEY INJURY-at baseline has chronic kidney disease stage III with a creatinine of 1.7. Evaluation in the emergency department creatinine was 3 with a GFR of 23. -IV fluids -Closely monitor urine output and renal function HYPERKALEMIA-likely secondary to acute kidney injury as well as ARB therapy -Hold ARB -IV fluids -Recheck potassium later this evening and in a.m. -Kayexalate 30 g by mouth now -Consider use of IV Lasix after hydration TYPE 2 DIABETES MELLITUS -Hold glipizide and metformin -4 times a day glucometers -Low-dose sliding scale insulin -Lantus 16 units subcutaneous at bedtime MAINTENANCE ISSUES -DVT prophylaxis; Lovenox 30 mg subcutaneous daily -GI prophylaxis; continue outpatient H2 yesenia therapy -Eason catheter; not indicated -Nutrition; consistent carb diet -Nicotine dependence; patient smokes daily but declines nicotine replacement CODE STATUS-FULL CODE ADMISSION STATUS-patient will be admitted to inpatient status, expect at least a 2 night hospital stay for evaluation and management of problems as outlined above. At the time of this admission I do not reasonably expected evaluation and management of this problem will require more than a 96 hour hospital stay. DISPOSITION-anticipate discharge to home after the hospital stay. PRIMARY CARE PROVIDER-[facility]
[2018-10-23] MEDS ORDERED: HYDROmorphone 0.5 MG/0.5 ML Syringe IVPUSH PRN (17:41)
[2018-10-23] MEDS ORDERED: Piperacillin/Tazobactam 3.375 GM in Sodium Chloride 0.9% 50 ML IV SCH (17:41)
[2018-10-23] MEDS ORDERED: Sodium Chloride 0.9% 10 ML Syringe FLUSH PRN (17:41)
[2018-10-23] MEDS ORDERED: Enoxaparin 30 MG/0.3 ML Syringe SUBCUT SCH (17:41)
[2018-10-23] MEDS ORDERED: Ondansetron 4 MG/2 ML SDV IV PRN (17:41)
[2018-10-23] MEDS ORDERED: Polyethylene Glycol 3350 Powder 17 GM Packet PO PRN (17:41)
[2018-10-23] MEDS ORDERED: Glucose Gel 15 GM in 37.5 GM Tube PO PRN (17:41)
[2018-10-23] MEDS ORDERED: 50% Dextrose in Water 50 ML Syringe IV PRN (17:41)
[2018-10-23] MEDS ORDERED: Albuterol 0.083% 2.5 MG/3 ML Neb Soln NEB PRN (17:41)
[2018-10-23] MEDS ORDERED: Sodium Polystyrene Sulfonate 15 GM/60 ML Susp 60 ML Bot PO ONE (17:41)
[2018-10-23] MEDS ORDERED: Vancomycin 1 GM SDV IV SCH (18:00)
[2018-10-23] MEDS ORDERED: Vancomycin 2 GM in Sodium Chloride 0.9% 500 ML IV ONE (20:00)
[2018-10-23] MEDS: Sodium Chloride 0.9% 1,000 ML IV SCH (20:09)
[2018-10-23] MEDS ORDERED: Vancomycin 1 GM SDV ONE (20:26)
[2018-10-23] MEDS: Insulin Lispro 100 Unit/ML 3 ML KwikPen SUBCUT SCH (22:02)
[2018-10-23] MEDS: Baclofen 10 MG Tab PO SCH (22:03)
[2018-10-23] MEDS: Gabapentin 300 MG Cap PO SCH (22:03)
[2018-10-23] MEDS: Insulin Glargine,Human Rec. Analog 100 Units/ML 3 ML Pen SUBCUT SCH (22:28)
[2018-10-24] MEDS: Sodium Chloride 0.9% 1,000 ML IV SCH (06:15)
[2018-10-24] MEDS: Gabapentin 300 MG Cap PO SCH ×2 (07:16→09:40)
[2018-10-24] MEDS: amLODIPine 10 MG Tab PO SCH (08:40)
[2018-10-24] MEDS: Baclofen 10 MG Tab PO SCH ×3 (08:40→20:00)
[2018-10-24] MEDS: Escitalopram 10 MG Tab PO SCH (08:40)
[2018-10-24] MEDS: Carvedilol 12.5 MG Tab PO SCH (08:40)
[2018-10-24] MEDS: atorvaSTATin 20 MG Tab PO SCH (08:41)
[2018-10-24] MEDS: Magnesium Oxide 400 MG Tab PO SCH ×2 (08:41→20:01)
[2018-10-24] MEDS: Clopidogrel 75 MG Tab PO SCH (08:41)
[2018-10-24] MEDS: Famotidine 20 MG Tab PO SCH (08:41)
[2018-10-24] MEDS: Aspirin 81 MG Tab.EC PO SCH (08:45)
[2018-10-24] MEDS ORDERED: Magnesium Sulfate/Water 2 GM in Premix Bag 1 BAG IV ONE (09:00)
[2018-10-24] MEDS: Insulin Lispro 100 Unit/ML 3 ML KwikPen SUBCUT SCH ×4 (09:40→21:25)
[2018-10-24] MEDS ORDERED: Furosemide 20 MG/2 ML VIAL IVPUSH ONE ×2 (11:54→12:30)
--- NOTE | 2018-10-24 12:51 | PCM.PN ---
- General Info Date of Service: 10/24/18 Subjective Update: Mr. Turner continues to experience scrotal pain and swelling. Renal function has improved modestly with IV fluids, potassium level significantly improved at 5.2. He also notes edema in the left thigh as well as right thigh and buttocks. Urinalysis obtained after admission shows evidence of significant infection, culture pending. Functional Status: Reports: Tolerating Diet, Urinating - Review of Systems General: Reports: Weakness. Denies: Fever, Chills Pulmonary: Reports: Shortness of Breath. Denies: Pleuritic Chest Pain, Cough, Sputum, Hemoptysis, Wheezing Cardiovascular: Reports: Dyspnea on Exertion, Edema. Denies: Chest Pain, Palpitations, Orthopnea, PND Gastrointestinal: Reports: No Symptoms Genitourinary: Reports: Other (Persistent scrotal pain and swelling) - Patient Data Vitals - Most Recent: Last Vital Signs Temp 96.6 F 10/24/18 10:41 Pulse 96 10/24/18 10:41 Resp 18 10/24/18 10:41 BP 127/55 L 10/24/18 10:41 Pulse Ox 95 10/24/18 10:41 Weight - Most Recent: 280 lb 0.005 oz I&O - Last 24 Hours: Intake & Output 10/23/18 10/24/18 10/24/18 22:59 06:59 14:59 Intake Total 555 1751 500 Output Total 700 500 500 Balance -145 1251 0 Lab Results Last 24 Hours: Laboratory Results - last 24 hr 10/23/18 10/23/18 10/23/18 Range/Units 14:37 14:48 14:48 WBC 9.2 (4.5-11.0) K/uL RBC 3.71 L (4.30-5.90) M/uL Hgb 9.9 L D (12.0-15.0) g/dL Hct 31.2 L (40.0-54.0) % MCV 84 (80-98) fL MCH 27 (27-31) pg MCHC 32 (32-36) % Plt Count 189 (150-400) K/uL Neut % (Auto) (36-66) % Lymph % (Auto) (24-44) % Moore % (Auto) (2-6) % Eos % (Auto) (2-4) % Baso % (Auto) (0-1) % Sodium 139 L (140-148) mmol/L Potassium 6.2 H* (3.6-5.2) mmol/L Chloride 108 (100-108) mmol/L Carbon Dioxide 26 (21-32) mmol/L Anion Gap 11.2 (5.0-14.0) mmol/L BUN 37 H D (7-18) mg/dL Creatinine 3.0 H D (0.8-1.3) mg/dL Est Cr Clr Drug Dosing TNP Estimated GFR (MDRD) 22 L (>60) Glucose 150 H (74-106) mg/dL Calcium 8.5 (8.5-10.1) mg/dL Magnesium (1.8-2.4) mg/dL C-Reactive Protein 3.53 H (0.0-0.3) mg/dL Urine Color Yellow Urine Appearance Turbid Urine pH 5.0 (4.5-8.0) Ur Specific [place] 1.015 (1.008-1.030) Urine Protein 500 H (NEGATIVE) mg/dL Urine Glucose (UA) 100 H (NEGATIVE) mg/dL Urine Ketones Negative (NEGATIVE) mg/dL Urine Occult Blood Large (NEGATIVE) Urine Nitrite Negative (NEGAITVE) Urine Bilirubin Negative (NEGATIVE) Urine Urobilinogen Normal (NORMAL) mg/dL Ur Leukocyte Esterase Large (NEGATIVE) Urine RBC 5-10 H (0-5) Urine WBC Packed H (0-5) Ur Epithelial Cells Few Amorphous Sediment Few Urine Bacteria Many Urine Mucus Few 10/23/18 10/24/18 10/24/18 Range/Units 21:35 05:11 05:11 WBC 6.6 (4.5-11.0) K/uL RBC 3.66 L (4.30-5.90) M/uL Hgb 9.9 L (12.0-15.0) g/dL Hct 31.1 L (40.0-54.0) % MCV 85 (80-98) fL MCH 27 (27-31) pg MCHC 32 (32-36) % Plt Count 210 (150-400) K/uL Neut % (Auto) 65 (36-66) % Lymph % (Auto) 24 (24-44) % Moore % (Auto) 9 H (2-6) % Eos % (Auto) 2 (2-4) % Baso % (Auto) 1 (0-1) % Sodium 140 (140-148) mmol/L Potassium 5.1 5.2 (3.6-5.2) mmol/L Chloride 109 H (100-108) mmol/L Carbon Dioxide 23 (21-32) mmol/L Anion Gap 13.2 (5.0-14.0) mmol/L BUN 36 H (7-18) mg/dL Creatinine 2.7 H (0.8-1.3) mg/dL Est Cr Clr Drug Dosing 31.05 Estimated GFR (MDRD) 25 L (>60) Glucose 115 H (74-106) mg/dL Calcium 8.1 L (8.5-10.1) mg/dL Magnesium 1.6 L (1.8-2.4) mg/dL C-Reactive Protein (0.0-0.3) mg/dL Urine Color Urine Appearance Urine pH (4.5-8.0) Ur Specific [place] (1.008-1.030) Urine Protein (NEGATIVE) mg/dL Urine Glucose (UA) (NEGATIVE) mg/dL Urine Ketones (NEGATIVE) mg/dL Urine Occult Blood (NEGATIVE) Urine Nitrite (NEGAITVE) Urine Bilirubin (NEGATIVE) Urine Urobilinogen (NORMAL) mg/dL Ur Leukocyte Esterase (NEGATIVE) Urine RBC (0-5) Urine WBC (0-5) Ur Epithelial Cells Amorphous Sediment Urine Bacteria Urine Mucus Med Orders - Current: Current Medications Acetaminophen (Tylenol) 650 mg PO Q4H PRN PRN Reason: Pain (Mild 1-3)/fever Albuterol (Proventil Neb Soln) 2.5 mg NEB Q4H PRN PRN Reason: Shortness Of Breath/wheezing Amlodipine Besylate (Norvasc) 10 mg PO DAILY [facility] Last Admin: 10/24/18 08:40 Dose: 10 mg Aspirin (Halfprin) 81 mg PO DAILY [facility] Last Admin: 10/24/18 08:45 Dose: 81 mg Atorvastatin Calcium (Lipitor) 40 mg PO DAILY [facility] Last Admin: 10/24/18 08:41 Dose: 40 mg Baclofen (Lioresal) 10 mg PO TID [facility] Last Admin: 10/24/18 08:40 Dose: 10 mg Carvedilol (Coreg) 12.5 mg PO DAILY [facility] Last Admin: 10/24/18 08:40 Dose: 12.5 mg Clopidogrel Bisulfate (Plavix) 75 mg PO DAILY [facility] Last Admin: 10/24/18 08:41 Dose: 75 mg Dextrose (Glutose 15) 15 gm PO ONETIME PRN PRN Reason: Hypoglycemia Dextrose/Water (Dextrose 50% In Water) 50 ml IV ONETIME PRN PRN Reason: Hypoglycemia Enoxaparin Sodium (Lovenox) 30 mg SUBCUT Q24H [facility] Escitalopram Oxalate (Lexapro) 10 mg PO DAILY [facility] Last Admin: 10/24/18 08:40 Dose: 10 mg Famotidine (Pepcid) 20 mg PO DAILY [facility] Last Admin: 10/24/18 08:41 Dose: 20 mg Gabapentin (Neurontin) 100 mg PO QID [facility] Hydromorphone HCl (Dilaudid) 0.5 mg IVPUSH Q4H PRN PRN Reason: Pain Last Admin: 10/23/18 20:13 Dose: 0.5 mg Vancomycin HCl 1.5 gm/ Sodium (Chloride) 250 mls @ 166.667 mls/hr IV Q24H [facility] Meropenem 1 gm/ Sodium (Chloride) 50 mls @ 100 mls/hr IV Q12H [facility] Last Admin: 10/24/18 08:36 Dose: 100 mls/hr Insulin Glargine (Lantus Solostar) 16 units SUBCUT BEDTIME [facility] Last Admin: 10/23/18 22:28 Dose: Not Given Insulin Human Lispro (Humalog) 0 unit SUBCUT QIDACANDBED [facility]; Protocol Last Admin: 10/24/18 09:40 Dose: Not Given Magnesium Oxide (Magnesium Oxide) 400 mg PO BID [facility] Last Admin: 10/24/18 08:41 Dose: 400 mg Nystatin (Nystop) 0 gm TOP QID [facility] Ondansetron HCl (Zofran) 4 mg IV Q4H PRN PRN Reason: Nausea/Vomiting Polyethylene Glycol (Miralax) 17 gm PO DAILY PRN PRN Reason: Constipation Sodium Chloride (Saline Flush) 10 ml FLUSH ASDIRECTED PRN PRN Reason: Keep Vein Open Discontinued Medications Hydrocodone Bitart/Acetaminophen ([place] 325-5 Mg) 1 tab PO ONETIME ONE Stop: 10/23/18 15:10 Last Admin: 10/23/18 15:31 Dose: 1 tab Enoxaparin Sodium (Lovenox) 30 mg SUBCUT DAILY [facility] Last Admin: 10/23/18 18:42 Dose: 30 mg Furosemide (Lasix) 60 mg IVPUSH ONETIME ONE Stop: 10/24/18 12:31 Gabapentin (Neurontin) 600 mg PO QID [facility] Last Admin: 10/24/18 09:40 Dose: 600 mg Levofloxacin/Dextrose 750 mg/ (Premix) 150 mls @ 100 mls/hr IV ONETIME ONE Stop: 10/23/18 16:40 Last Admin: 10/23/18 15:41 Dose: 100 mls/hr Sodium Chloride (Normal Saline) 1,000 mls @ 1,000 mls/hr IV .BOLUS ONE Stop: 10/23/18 16:10 Last Admin: 10/23/18 15:38 Dose: 1,000 mls/hr Sodium Chloride (Normal Saline) 500 mls @ 1,000 mls/hr IV .BOLUS ONE Stop: 10/23/18 17:20 Last Admin: 10/23/18 16:54 Dose: 1,000 mls/hr Piperacillin Sod/Tazobactam (Sod 3.375 gm/ Sodium Chloride) 50 mls @ 100 mls/ hr IV Q6H [facility] Last Admin: 10/23/18 20:10 Dose: Not Given Sodium Chloride (Normal Saline) 1,000 mls @ 125 mls/hr IV ASDIRECTED [facility] Last Admin: 10/24/18 06:15 Dose: 125 mls/hr Vancomycin HCl 2 gm/ Sodium (Chloride) 500 mls @ 250 mls/hr IV ONETIME ONE Stop: 10/23/18 21:59 Last Admin: 10/23/18 21:11 Dose: 250 mls/hr Magnesium Sulfate 2 gm/ Premix 50 mls @ 25 mls/hr IV ONETIME ONE Stop: 10/24/18 10:59 Last Admin: 10/24/18 09:39 Dose: 25 mls/hr Sodium Polystyrene Sulfonate (Kayexalate) 30 gm PO ONETIME ONE Stop: 10/23/18 17:42 Last Admin: 10/23/18 18:41 Dose: 30 gm Vancomycin HCl (Vancomycin) 1 gm IV .PHARMACY TO DOSE [facility] Stop: 10/24/18 10:00 Vancomycin HCl (Vancomycin) Confirm Administered Dose 2 gm .ROUTE .STK-MED ONE Stop: 10/23/18 20:27 Last Admin: 10/24/18 07:16 Dose: Not Given - Exam Quality Assessment: DVT Prophylaxis General: Alert, Oriented, Cooperative, Moderate Distress Lungs: Clear to Auscultation, Normal Respiratory Effort Cardiovascular: Regular Rate, Regular Rhythm, No Murmurs GI/Abdominal Exam: Soft, Non-Tender, No Organomegaly, No Distention (Male) Exam: Scrotal Swelling, Scrotum Tenderness (L), Scrotum Tenderness (R) - Problem List Review Problem List Initiated/Reviewed/Updated: Yes - My Orders Last 24 Hours: My Active Orders 10/23/18 17:04 Resuscitation Status Routine 10/23/18 17:41 Patient Status [ADT] Routine Ambulate [RC] QID Blood Glucose Check, Bedside [RC] QIDACANDBED Cardiac Monitoring [RC] .As Directed Diabetes Education [RC] Click to Edit Height and Weight [RC] DAILY Intake and Output [RC] QSHIFT Notify Provider Vital Signs [RC] ASDIRECTED Notify Provider [RC] PRN Oxygen Therapy [RC] .PRN Peripheral IV Care [RC] Q12H Pulse Oximetry [RC] CONTINUOUS RT Aerosol Therapy [RC] ASDIRECTED Up to Chair [RC] QID VTE/DVT Education [RC] Per Unit Routine Vital Signs [RC] Q4H Acetaminophen [Tylenol] 650 mg PO Q4H PRN Albuterol [Proventil Neb Soln] 2.5 mg NEB Q4H PRN Dextrose 50% in Water 50 ml IV ONETIME PRN Dextrose [Glutose 15] 15 gm PO ONETIME PRN HYDROmorphone [Dilaudid] 0.5 mg IVPUSH Q4H PRN Ondansetron [Zofran] 4 mg IV Q4H PRN Polyethylene Glycol 3350 [MiraLAX] 17 gm PO DAILY PRN Sodium Chloride 0.9% [Saline Flush] 10 ml FLUSH ASDIRECTED PRN Peripheral IV Insertion Adult [OM.PC] Routine 10/23/18 19:56 Dietary Supplements [RC] BIDMEALS 10/23/18 20:00 Insulin Lispro [HumaLOG] See Protocol SUBCUT QIDACANDBED Meropenem [Merrem] 1 gm Sodium Chloride 0.9% [Normal Saline] 50 ml IV Q12H 10/23/18 21:00 Baclofen [Lioresal] 10 mg PO TID Insulin Glarg,Human.Rec.Analog [LantUS Solostar] 16 units SUBCUT BEDTIME 10/23/18 22:34 CULTURE URINE [RM] Routine 10/23/18 Lunch Consistent Carbohydrate Diet [DIET] 10/24/18 09:00 Aspirin [Halfprin] 81 mg PO DAILY Carvedilol [Coreg] 12.5 mg PO DAILY Clopidogrel [Plavix] 75 mg PO DAILY Escitalopram [Lexapro] 10 mg PO DAILY Famotidine [Pepcid] 20 mg PO DAILY Magnesium Oxide 400 mg PO BID amLODIPine [Norvasc] 10 mg PO DAILY atorvaSTATin [Lipitor] 40 mg PO DAILY 10/24/18 11:54 Convert IV to Saline Lock [OM.PC] Routine 10/24/18 16:00 Gabapentin [Neurontin] 100 mg PO QID Nystatin [Nystop] See Dose Instructions TOP QID 10/24/18 16:30 GLUCOSE POC LAB TO COLLECT [POC] QIDACANDBED 10/24/18 18:00 Enoxaparin [Lovenox] 30 mg SUBCUT Q24H 10/24/18 20:00 Vancomycin 1.5 gm Sodium Chloride 0.9% [Normal Saline] 250 ml IV Q24H 10/24/18 21:00 GLUCOSE POC LAB TO COLLECT [POC] QIDACANDBED 10/25/18 05:00 BASIC METABOLIC PANEL,BMP [CHEM] Timed CBC WITH AUTO DIFF [HEME] Timed MAGNESIUM [CHEM] Timed 10/25/18 07:30 GLUCOSE POC LAB TO COLLECT [POC] QIDACANDBED 10/25/18 11:30 GLUCOSE POC LAB TO COLLECT [POC] QIDACANDBED 10/25/18 16:30 GLUCOSE POC LAB TO COLLECT [POC] QIDACANDBED 10/25/18 19:30 VANCOMYCIN TROUGH [CHEM] Timed 10/25/18 21:00 GLUCOSE POC LAB TO COLLECT [POC] QIDACANDBED 10/26/18 07:30 GLUCOSE POC LAB TO COLLECT [POC] QIDACANDBED 10/26/18 11:30 GLUCOSE POC LAB TO COLLECT [POC] QIDACANDBED 10/26/18 16:30 GLUCOSE POC LAB TO COLLECT [POC] QIDACANDBED 10/26/18 21:00 GLUCOSE POC LAB TO COLLECT [POC] QIDACANDBED 10/27/18 07:30 GLUCOSE POC LAB TO COLLECT [POC] QIDACANDBED 10/27/18 11:30 GLUCOSE POC LAB TO COLLECT [POC] QIDACANDBED 10/27/18 16:30 GLUCOSE POC LAB TO COLLECT [POC] QIDACANDBED 10/27/18 21:00 GLUCOSE POC LAB TO COLLECT [POC] QIDACANDBED 10/28/18 07:30 GLUCOSE POC LAB TO COLLECT [POC] QIDACANDBED 10/28/18 11:30 GLUCOSE POC LAB TO COLLECT [POC] QIDACANDBED 10/28/18 16:30 GLUCOSE POC LAB TO COLLECT [POC] QIDACANDBED - Plan Plan:: ASSESSMENT AND PLAN SCROTAL SWELLING AND TENDERNESS-scrotum is noted to be erythematous, not warm. Probable underlying infection, at the present time area of inflammation seems to be limited to the scrotum. He is not septic and does have a normal white blood cell count. Ongoing scrotal edema today with tenderness to palpation. He is also noted to have significant edema both posterior thighs. -Saline lock IV -Furosemide 60 mg IV now -Broad-spectrum IV antibiotic therapy with vancomycin and Zosyn -Monitor closely for any evidence of extension of the infection. ACUTE KIDNEY INJURY-at baseline has chronic kidney disease stage III with a creatinine of 1.7. Modest improvement in renal function since admission -Closely monitor urine output and renal function URINARY TRACT INFECTION-urinalysis obtained after admission shows evidence of underlying infection -Current antibiotic therapy should be adequate for UTI -Urine culture pending HYPERKALEMIA-likely secondary to acute kidney injury as well as ARB therapy, potassium level significantly improved with hydration and Kayexalate -Hold ARB -IV Lasix as above TYPE 2 DIABETES MELLITUS -Hold glipizide and metformin -4 times a day glucometers -Low-dose sliding scale insulin MAINTENANCE ISSUES -DVT prophylaxis; Lovenox 30 mg subcutaneous daily -GI prophylaxis; continue outpatient H2 yesenia therapy -Eason catheter; not indicated -Nutrition; consistent carb diet -Nicotine dependence; patient smokes daily but declines nicotine replacement CODE STATUS-FULL CODE ADMISSION STATUS-patient will be admitted to inpatient status, expect at least a 2 night hospital stay for evaluation and management of problems as outlined above. At the time of this admission I do not reasonably expected evaluation and management of this problem will require more than a 96 hour hospital stay. DISPOSITION-anticipate discharge to home after the hospital stay. PRIMARY CARE PROVIDER-[facility] [place]
[2018-10-24] MEDS: Nystatin Topical Powder 15 GM Bottle TOP SCH ×2 (15:53→21:28)
[2018-10-24] MEDS ORDERED: Gabapentin 100 MG Cap PO SCH ×2 (16:00)
[2018-10-24] MEDS: Enoxaparin 30 MG/0.3 ML Syringe SUBCUT SCH (19:04)
[2018-10-24] MEDS: Gabapentin 400 MG Cap PO SCH (20:00)
[2018-10-24] MEDS: Acetaminophen 325 MG Tab PO PRN (20:05)
[2018-10-24] MEDS: Insulin Glargine,Human Rec. Analog 100 Units/ML 3 ML Pen SUBCUT SCH (21:26)
[2018-10-25] MEDS: Nystatin Topical Powder 15 GM Bottle TOP SCH ×4 (05:46→21:34)
[2018-10-25] MEDS: Insulin Lispro 100 Unit/ML 3 ML KwikPen SUBCUT SCH ×4 (07:19→21:35)
[2018-10-25] MEDS ORDERED: Furosemide 40 MG/4 ML VIAL IVPUSH ONE ×2 (08:45→18:00)
[2018-10-25] MEDS: Baclofen 10 MG Tab PO SCH ×3 (08:51→21:33)
[2018-10-25] MEDS: amLODIPine 10 MG Tab PO SCH (08:52)
[2018-10-25] MEDS: Gabapentin 400 MG Cap PO SCH ×2 (08:52→21:33)
[2018-10-25] MEDS: Aspirin 81 MG Tab.EC PO SCH (08:53)
[2018-10-25] MEDS: atorvaSTATin 20 MG Tab PO SCH (08:53)
[2018-10-25] MEDS: Carvedilol 12.5 MG Tab PO SCH (08:54)
[2018-10-25] MEDS: Magnesium Oxide 400 MG Tab PO SCH ×2 (08:55→21:34)
[2018-10-25] MEDS: Famotidine 20 MG Tab PO SCH (08:56)
[2018-10-25] MEDS: Escitalopram 10 MG Tab PO SCH (08:56)
[2018-10-25] MEDS: Clopidogrel 75 MG Tab PO SCH (09:50)
--- NOTE | 2018-10-25 10:47 | PCM.PN ---
- General Info Date of Service: 10/25/18 Subjective Update: Mr. Turner has been stable since yesterday and has noted significant improvement in his scrotal swelling as well as pain. He was given IV furosemide yesterday and has had an excellent diuresis with improvement in his dependent edema. Renal function has modestly improved since yesterday and his potassium level has remained within normal range. Functional Status: Reports: Pain Controlled, Tolerating Diet, Urinating - Review of Systems General: Reports: Weakness. Denies: Fever, Chills Pulmonary: Reports: No Symptoms Cardiovascular: Reports: No Symptoms Gastrointestinal: Reports: No Symptoms Genitourinary: Reports: Other (Scrotal swelling has improved) - Patient Data Vitals - Most Recent: Last Vital Signs Temp 99.4 F 10/25/18 07:00 Pulse 102 H 10/25/18 08:54 Resp 20 10/25/18 07:00 BP 165/87 H 10/25/18 08:54 Pulse Ox 92 L 10/25/18 07:45 Weight - Most Recent: 280 lb 0.005 oz I&O - Last 24 Hours: Intake & Output 10/24/18 10/25/18 10/25/18 22:59 06:59 14:59 Intake Total 515 800 50 Output Total 1300 850 Balance -785 -50 50 Lab Results Last 24 Hours: Laboratory Results - last 24 hr 10/25/18 10/25/18 Range/Units 04:45 04:45 WBC 8.1 (4.5-11.0) K/uL RBC 3.63 L (4.30-5.90) M/uL Hgb 9.7 L (12.0-15.0) g/dL Hct 30.7 L (40.0-54.0) % MCV 85 (80-98) fL MCH 27 (27-31) pg MCHC 32 (32-36) % Plt Count 203 (150-400) K/uL Neut % (Auto) 75 H (36-66) % Lymph % (Auto) 15 L (24-44) % [place] % (Auto) 8 H (2-6) % Eos % (Auto) 1 L (2-4) % Baso % (Auto) 1 (0-1) % Sodium 143 (140-148) mmol/L Potassium 4.7 (3.6-5.2) mmol/L Chloride 110 H (100-108) mmol/L Carbon Dioxide 23 (21-32) mmol/L Anion Gap 14.7 H (5.0-14.0) mmol/L BUN 33 H (7-18) mg/dL Creatinine 2.6 H (0.8-1.3) mg/dL Est Cr Clr Drug Dosing 32.43 mL/min Estimated GFR (MDRD) 26 L (>60) Glucose 115 H (74-106) mg/dL Calcium 8.2 L (8.5-10.1) mg/dL Magnesium 1.9 (1.8-2.4) mg/dL James Results Last 24 Hours: Microbiology 10/23/18 22:31 Urine Culture - Preliminary Urine, Clean Catch Med Orders - Current: Current Medications Acetaminophen (Tylenol) 650 mg PO Q4H PRN PRN Reason: Pain (Mild 1-3)/fever Last Admin: 10/24/18 20:05 Dose: 650 mg Albuterol (Proventil Neb Soln) 2.5 mg NEB Q4H PRN PRN Reason: Shortness Of Breath/wheezing Amlodipine Besylate (Norvasc) 10 mg PO DAILY [facility] Last Admin: 10/25/18 08:52 Dose: 10 mg Aspirin (Halfprin) 81 mg PO DAILY [facility] Last Admin: 10/25/18 08:53 Dose: 81 mg Atorvastatin Calcium (Lipitor) 40 mg PO DAILY [facility] Last Admin: 10/25/18 08:53 Dose: 40 mg Baclofen (Lioresal) 10 mg PO TID [facility] Last Admin: 10/25/18 08:51 Dose: 10 mg Carvedilol (Coreg) 12.5 mg PO DAILY [facility] Last Admin: 10/25/18 08:54 Dose: 12.5 mg Clopidogrel Bisulfate (Plavix) 75 mg PO DAILY [facility] Last Admin: 10/25/18 09:50 Dose: 75 mg Dextrose (Glutose 15) 15 gm PO ONETIME PRN PRN Reason: Hypoglycemia Dextrose/Water (Dextrose 50% In Water) 50 ml IV ONETIME PRN PRN Reason: Hypoglycemia Enoxaparin Sodium (Lovenox) 30 mg SUBCUT Q24H [facility] Last Admin: 10/24/18 19:04 Dose: 30 mg Escitalopram Oxalate (Lexapro) 10 mg PO DAILY [facility] Last Admin: 10/25/18 08:56 Dose: 10 mg Famotidine (Pepcid) 20 mg PO DAILY [facility] Last Admin: 10/25/18 08:56 Dose: 20 mg Furosemide (Lasix) 40 mg IVPUSH NOW ONE Stop: 10/25/18 18:01 Gabapentin (Neurontin) 400 mg PO BID [facility] Last Admin: 10/25/18 08:52 Dose: 400 mg Hydromorphone HCl (Dilaudid) 0.5 mg IVPUSH Q4H PRN PRN Reason: Pain Last Admin: 10/23/18 20:13 Dose: 0.5 mg Vancomycin HCl 1.5 gm/ Sodium (Chloride) 250 mls @ 166.667 mls/hr IV Q24H [facility] Last Admin: 10/24/18 20:01 Dose: 166.667 mls/hr Meropenem 1 gm/ Sodium (Chloride) 50 mls @ 100 mls/hr IV Q12H [facility] Last Admin: 10/25/18 07:39 Dose: 100 mls/hr Insulin Glargine (Lantus Solostar) 16 units SUBCUT BEDTIME [facility] Last Admin: 10/24/18 21:26 Dose: 16 units Insulin Human Lispro (Humalog) 0 unit SUBCUT QIDACANDBED [facility]; Protocol Last Admin: 10/25/18 07:19 Dose: Not Given Magnesium Oxide (Magnesium Oxide) 400 mg PO BID [facility] Last Admin: 10/25/18 08:55 Dose: 400 mg Nystatin (Nystop) 0 gm TOP QID [facility] Last Admin: 10/25/18 09:51 Dose: 1 applic Ondansetron HCl (Zofran) 4 mg IV Q4H PRN PRN Reason: Nausea/Vomiting Polyethylene Glycol (Miralax) 17 gm PO DAILY PRN PRN Reason: Constipation Last Admin: 10/24/18 20:06 Dose: 17 gm Sodium Chloride (Saline Flush) 10 ml FLUSH ASDIRECTED PRN PRN Reason: Keep Vein Open Discontinued Medications Hydrocodone Bitart/Acetaminophen ([place] 325-5 Mg) 1 tab PO ONETIME ONE Stop: 10/23/18 15:10 Last Admin: 10/23/18 15:31 Dose: 1 tab Enoxaparin Sodium (Lovenox) 30 mg SUBCUT DAILY [facility] Last Admin: 10/23/18 18:42 Dose: 30 mg Furosemide (Lasix) 60 mg IVPUSH ONETIME ONE Stop: 10/24/18 12:31 Last Admin: 10/24/18 13:21 Dose: 60 mg Furosemide (Lasix) 80 mg IVPUSH NOW ONE Stop: 10/25/18 08:46 Last Admin: 10/25/18 09:15 Dose: 80 mg Gabapentin (Neurontin) 600 mg PO QID [facility] Last Admin: 10/24/18 09:40 Dose: 600 mg Levofloxacin/Dextrose 750 mg/ (Premix) 150 mls @ 100 mls/hr IV ONETIME ONE Stop: 10/23/18 16:40 Last Admin: 10/23/18 15:41 Dose: 100 mls/hr Sodium Chloride (Normal Saline) 1,000 mls @ 1,000 mls/hr IV .BOLUS ONE Stop: 10/23/18 16:10 Last Admin: 10/23/18 15:38 Dose: 1,000 mls/hr Sodium Chloride (Normal Saline) 500 mls @ 1,000 mls/hr IV .BOLUS ONE Stop: 10/23/18 17:20 Last Admin: 10/23/18 16:54 Dose: 1,000 mls/hr Piperacillin Sod/Tazobactam (Sod 3.375 gm/ Sodium Chloride) 50 mls @ 100 mls/ hr IV Q6H [facility] Last Admin: 10/23/18 20:10 Dose: Not Given Sodium Chloride (Normal Saline) 1,000 mls @ 125 mls/hr IV ASDIRECTED [facility] Last Admin: 10/24/18 06:15 Dose: 125 mls/hr Vancomycin HCl 2 gm/ Sodium (Chloride) 500 mls @ 250 mls/hr IV ONETIME ONE Stop: 10/23/18 21:59 Last Admin: 10/23/18 21:11 Dose: 250 mls/hr Magnesium Sulfate 2 gm/ Premix 50 mls @ 25 mls/hr IV ONETIME ONE Stop: 10/24/18 10:59 Last Admin: 10/24/18 09:39 Dose: 25 mls/hr Sodium Polystyrene Sulfonate (Kayexalate) 30 gm PO ONETIME ONE Stop: 10/23/18 17:42 Last Admin: 10/23/18 18:41 Dose: 30 gm Vancomycin HCl (Vancomycin) 1 gm IV .PHARMACY TO DOSE [facility] Stop: 10/24/18 10:00 Vancomycin HCl (Vancomycin) Confirm Administered Dose 2 gm .ROUTE .STK-MED ONE Stop: 10/23/18 20:27 Last Admin: 10/24/18 07:16 Dose: Not Given - Exam Quality Assessment: DVT Prophylaxis General: Alert, Oriented, Cooperative, Mild Distress Lungs: Clear to Auscultation, Normal Respiratory Effort Cardiovascular: Regular Rate, Regular Rhythm, No Murmurs GI/Abdominal Exam: Soft, Non-Tender, No Organomegaly, No Distention (Male) Exam: Scrotal Swelling, Scrotum Tenderness (L), Scrotum Tenderness (R) Extremities: Non-Tender, Pedal Edema - Problem List Review Problem List Initiated/Reviewed/Updated: Yes - My Orders Last 24 Hours: My Active Orders 10/24/18 11:54 Convert IV to Saline Lock [OM.PC] Routine 10/24/18 16:00 Nystatin [Nystop] See Dose Instructions TOP QID 10/24/18 18:00 Enoxaparin [Lovenox] 30 mg SUBCUT Q24H 10/24/18 20:00 Vancomycin 1.5 gm Sodium Chloride 0.9% [Normal Saline] 250 ml IV Q24H 10/24/18 21:00 Gabapentin [Neurontin] 400 mg PO BID 10/25/18 10:42 Consult to Physical Therapy [PT Evaluation and Treatment] [CONS] Routine OT Evaluation and Treatment [CONS] Routine 10/25/18 11:30 GLUCOSE POC LAB TO COLLECT [POC] QIDACANDBED 10/25/18 16:30 GLUCOSE POC LAB TO COLLECT [POC] QIDACANDBED 10/25/18 18:00 Furosemide [Lasix] 40 mg IVPUSH NOW ONE 10/25/18 19:30 VANCOMYCIN TROUGH [CHEM] Routine 10/25/18 21:00 GLUCOSE POC LAB TO COLLECT [POC] QIDACANDBED 10/26/18 05:00 BASIC METABOLIC PANEL,BMP [CHEM] Timed 10/26/18 07:30 GLUCOSE POC LAB TO COLLECT [POC] QIDACANDBED 10/26/18 11:30 GLUCOSE POC LAB TO COLLECT [POC] QIDACANDBED 10/26/18 16:30 GLUCOSE POC LAB TO COLLECT [POC] QIDACANDBED 10/26/18 21:00 GLUCOSE POC LAB TO COLLECT [POC] QIDACANDBED 10/27/18 07:30 GLUCOSE POC LAB TO COLLECT [POC] QIDACANDBED 10/27/18 11:30 GLUCOSE POC LAB TO COLLECT [POC] QIDACANDBED 10/27/18 16:30 GLUCOSE POC LAB TO COLLECT [POC] QIDACANDBED 10/27/18 21:00 GLUCOSE POC LAB TO COLLECT [POC] QIDACANDBED 10/28/18 07:30 GLUCOSE POC LAB TO COLLECT [POC] QIDACANDBED 10/28/18 11:30 GLUCOSE POC LAB TO COLLECT [POC] QIDACANDBED 10/28/18 16:30 GLUCOSE POC LAB TO COLLECT [POC] QIDACANDBED - Plan Plan:: ASSESSMENT AND PLAN SCROTAL SWELLING AND TENDERNESS-scrotum is noted to be erythematous, not warm. Swelling seems to be less likely secondary to infection and more likely a result of fluid overload. Swelling has improved over the last 24 hours with diuresis -Saline lock IV -Furosemide 80 mg IV twice today ACUTE KIDNEY INJURY-at baseline has chronic kidney disease stage III with a creatinine of 1.7. Modest improvement in renal function since admission -Closely monitor urine output and renal function URINARY TRACT INFECTION-urinalysis obtained after admission shows evidence of underlying infection, urine culture growing gram-positive cocci, final ID and sensitivity pending -Current antibiotic therapy should be adequate for UTI -Urine culture pending HYPERKALEMIA-resolved -Hold ARB -IV Lasix as above TYPE 2 DIABETES MELLITUS -Hold glipizide and metformin -4 times a day glucometers -Low-dose sliding scale insulin MAINTENANCE ISSUES -DVT prophylaxis; Lovenox 30 mg subcutaneous daily -GI prophylaxis; continue outpatient H2 yesenia therapy -Eason catheter; not indicated -Nutrition; consistent carb diet -Nicotine dependence; patient smokes daily but declines nicotine replacement CODE STATUS-FULL CODE ADMISSION STATUS-patient will be admitted to inpatient status, expect at least a 2 night hospital stay for evaluation and management of problems as outlined above. At the time of this admission I do not reasonably expected evaluation and management of this problem will require more than a 96 hour hospital stay. DISPOSITION-anticipate discharge to home after the hospital stay. PRIMARY CARE PROVIDER-[facility]
[2018-10-25] MEDS: Enoxaparin 30 MG/0.3 ML Syringe SUBCUT SCH (17:47)
[2018-10-25] MEDS ORDERED: Carvedilol 12.5 MG Tab PO ONE (21:30)
[2018-10-25] MEDS: Insulin Glargine,Human Rec. Analog 100 Units/ML 3 ML Pen SUBCUT SCH (21:36)
[2018-10-26] MEDS: Acetaminophen 325 MG Tab PO PRN (03:33)
[2018-10-26] MEDS: Nystatin Topical Powder 15 GM Bottle TOP SCH ×4 (06:08→21:45)
[2018-10-26] MEDS: Insulin Lispro 100 Unit/ML 3 ML KwikPen SUBCUT SCH ×4 (07:50→21:33)
[2018-10-26] MEDS: atorvaSTATin 20 MG Tab PO SCH (09:25)
[2018-10-26] MEDS: Sulfamethoxazole/Trimethoprim 800-160 MG Tab PO SCH ×2 (09:26→21:43)
[2018-10-26] MEDS: Baclofen 10 MG Tab PO SCH ×3 (09:26→21:41)
[2018-10-26] MEDS: Lactobacillus Rhamnosus GG (Probiotic) Cap PO SCH ×2 (09:26→21:39)
[2018-10-26] MEDS: Carvedilol 12.5 MG Tab PO SCH ×2 (09:26→21:34)
[2018-10-26] MEDS: Famotidine 20 MG Tab PO SCH (09:26)
[2018-10-26] MEDS: Clopidogrel 75 MG Tab PO SCH (09:26)
[2018-10-26] MEDS: Escitalopram 10 MG Tab PO SCH (09:26)
[2018-10-26] MEDS: amLODIPine 10 MG Tab PO SCH (09:27)
[2018-10-26] MEDS: Magnesium Oxide 400 MG Tab PO SCH ×2 (09:27→21:42)
[2018-10-26] MEDS: Gabapentin 400 MG Cap PO SCH ×2 (09:27→21:42)
[2018-10-26] MEDS: Aspirin 81 MG Tab.EC PO SCH (09:27)
[2018-10-26] MEDS ORDERED: Furosemide 40 MG/4 ML VIAL IVPUSH ONE ×2 (09:40→18:00)
--- NOTE | 2018-10-26 09:51 | PCM.PN ---
- General Info Date of Service: 10/26/18 Subjective Update: Mr. Turner has noted further improvement in edema as well as scrotal swelling over the last 24 hours. He was very lethargic and sleepy earlier today now more alert and interactive. - Review of Systems General: Reports: Fever, Weakness. Denies: Chills Pulmonary: Reports: No Symptoms Cardiovascular: Reports: Edema. Denies: Chest Pain, Palpitations, Dyspnea on Exertion, Orthopnea, PND Gastrointestinal: Reports: No Symptoms - Patient Data Vitals - Most Recent: Last Vital Signs Temp 98.4 F 10/26/18 07:00 Pulse 92 10/26/18 09:26 Resp 20 10/26/18 07:00 BP 183/77 H 10/26/18 09:27 Pulse Ox 97 10/26/18 07:22 Weight - Most Recent: 280 lb 0.005 oz I&O - Last 24 Hours: Intake & Output 10/25/18 10/26/18 10/26/18 22:59 06:59 14:59 Intake Total 480 Output Total 1550 600 Balance -1070 -600 Lab Results Last 24 Hours: Laboratory Results - last 24 hr 10/25/18 10/26/18 Range/Units 19:43 04:41 Sodium 140 (140-148) mmol/L Potassium 4.4 (3.6-5.2) mmol/L Chloride 107 (100-108) mmol/L Carbon Dioxide 26 (21-32) mmol/L Anion Gap 6.8 (5.0-14.0) mmol/L BUN 34 H (7-18) mg/dL Creatinine 2.6 H (0.8-1.3) mg/dL Est Cr Clr Drug Dosing 32.43 mL/min Estimated GFR (MDRD) 26 L (>60) Glucose 114 H (74-106) mg/dL Calcium 8.2 L (8.5-10.1) mg/dL Vancomycin Trough 20.1 H (10.0-20.0) ug/mL James Results Last 24 Hours: Microbiology 10/23/18 22:31 Urine Culture - Final Urine, Clean Catch Beta Strep Not Group A Or B Med Orders - Current: Current Medications Acetaminophen (Tylenol) 650 mg PO Q4H PRN PRN Reason: Pain (Mild 1-3)/fever Last Admin: 05/31/19 03:33 Dose: 650 mg Albuterol (Proventil Neb Soln) 2.5 mg NEB Q4H PRN PRN Reason: Shortness Of Breath/wheezing Amlodipine Besylate (Norvasc) 10 mg PO DAILY [facility] Last Admin: 10/26/18 09:27 Dose: 10 mg Aspirin (Halfprin) 81 mg PO DAILY [facility] Last Admin: 10/26/18 09:27 Dose: 81 mg Atorvastatin Calcium (Lipitor) 40 mg PO DAILY [facility] Last Admin: 10/26/18 09:25 Dose: 40 mg Baclofen (Lioresal) 10 mg PO TID [facility] Last Admin: 10/26/18 09:26 Dose: 10 mg Carvedilol (Coreg) 12.5 mg PO BID [facility] Last Admin: 10/26/18 09:26 Dose: 12.5 mg Clopidogrel Bisulfate (Plavix) 75 mg PO DAILY [facility] Last Admin: 10/26/18 09:26 Dose: 75 mg Dextrose (Glutose 15) 15 gm PO ONETIME PRN PRN Reason: Hypoglycemia Dextrose/Water (Dextrose 50% In Water) 50 ml IV ONETIME PRN PRN Reason: Hypoglycemia Enoxaparin Sodium (Lovenox) 30 mg SUBCUT Q24H [facility] Last Admin: 10/25/18 17:47 Dose: 30 mg Escitalopram Oxalate (Lexapro) 10 mg PO DAILY [facility] Last Admin: 10/26/18 09:26 Dose: 10 mg Famotidine (Pepcid) 20 mg PO DAILY [facility] Last Admin: 10/26/18 09:26 Dose: 20 mg Furosemide (Lasix) 60 mg IVPUSH NOW ONE Stop: 10/26/18 09:41 Furosemide (Lasix) 60 mg IVPUSH NOW ONE Stop: 10/26/18 18:01 Gabapentin (Neurontin) 400 mg PO BID [facility] Last Admin: 10/26/18 09:27 Dose: 400 mg Hydromorphone HCl (Dilaudid) 0.5 mg IVPUSH Q4H PRN PRN Reason: Pain Last Admin: 10/23/18 20:13 Dose: 0.5 mg Insulin Glargine (Lantus Solostar) 16 units SUBCUT BEDTIME [facility] Last Admin: 10/25/18 21:36 Dose: 16 units Insulin Human Lispro (Humalog) 0 unit SUBCUT QIDACANDBED [facility]; Protocol Last Admin: 10/26/18 07:50 Dose: Not Given Lactobacillus Rhamnosus (Culturelle) 1 cap PO BID [facility] Last Admin: 10/26/18 09:26 Dose: 1 cap Lisinopril (Prinivil) 5 mg PO BID [facility] Magnesium Oxide (Magnesium Oxide) 400 mg PO BID [facility] Last Admin: 10/26/18 09:27 Dose: 400 mg Nystatin (Nystop) 0 gm TOP QID [facility] Last Admin: 10/26/18 09:27 Dose: 1 applic Ondansetron HCl (Zofran) 4 mg IV Q4H PRN PRN Reason: Nausea/Vomiting Polyethylene Glycol (Miralax) 17 gm PO DAILY PRN PRN Reason: Constipation Last Admin: 10/24/18 20:06 Dose: 17 gm Sodium Chloride (Saline Flush) 10 ml FLUSH ASDIRECTED PRN PRN Reason: Keep Vein Open Trimethoprim/Sulfamethoxazole (Septra Ds) 1 tab PO BID [facility] Last Admin: 10/26/18 09:26 Dose: 1 tab Discontinued Medications Hydrocodone Bitart/Acetaminophen ([place] 325-5 Mg) 1 tab PO ONETIME ONE Stop: 10/23/18 15:10 Last Admin: 10/23/18 15:31 Dose: 1 tab Carvedilol (Coreg) 12.5 mg PO DAILY [facility] Last Admin: 10/25/18 08:54 Dose: 12.5 mg Carvedilol (Coreg) 12.5 mg PO ONETIME ONE Stop: 10/25/18 21:31 Last Admin: 10/25/18 21:29 Dose: 12.5 mg Enoxaparin Sodium (Lovenox) 30 mg SUBCUT DAILY [facility] Last Admin: 10/23/18 18:42 Dose: 30 mg Furosemide (Lasix) 60 mg IVPUSH ONETIME ONE Stop: 10/24/18 12:31 Last Admin: 10/24/18 13:21 Dose: 60 mg Furosemide (Lasix) 80 mg IVPUSH NOW ONE Stop: 10/25/18 08:46 Last Admin: 10/25/18 09:15 Dose: 80 mg Furosemide (Lasix) 40 mg IVPUSH NOW ONE Stop: 10/25/18 18:01 Last Admin: 10/25/18 17:53 Dose: 40 mg Gabapentin (Neurontin) 600 mg PO QID [facility] Last Admin: 10/24/18 09:40 Dose: 600 mg Levofloxacin/Dextrose 750 mg/ (Premix) 150 mls @ 100 mls/hr IV ONETIME ONE Stop: 10/23/18 16:40 Last Admin: 10/23/18 15:41 Dose: 100 mls/hr Sodium Chloride (Normal Saline) 1,000 mls @ 1,000 mls/hr IV .BOLUS ONE Stop: 10/23/18 16:10 Last Admin: 10/23/18 15:38 Dose: 1,000 mls/hr Sodium Chloride (Normal Saline) 500 mls @ 1,000 mls/hr IV .BOLUS ONE Stop: 10/23/18 17:20 Last Admin: 10/23/18 16:54 Dose: 1,000 mls/hr Piperacillin Sod/Tazobactam (Sod 3.375 gm/ Sodium Chloride) 50 mls @ 100 mls/ hr IV Q6H [facility] Last Admin: 10/23/18 20:10 Dose: Not Given Sodium Chloride (Normal Saline) 1,000 mls @ 125 mls/hr IV ASDIRECTED [facility] Last Admin: 10/24/18 06:15 Dose: 125 mls/hr Vancomycin HCl 2 gm/ Sodium (Chloride) 500 mls @ 250 mls/hr IV ONETIME ONE Stop: 10/23/18 21:59 Last Admin: 10/23/18 21:11 Dose: 250 mls/hr Vancomycin HCl 1.5 gm/ Sodium (Chloride) 250 mls @ 166.667 mls/hr IV Q24H [facility] Last Admin: 10/25/18 20:36 Dose: Not Given Meropenem 1 gm/ Sodium (Chloride) 50 mls @ 100 mls/hr IV Q12H [facility] Last Admin: 10/26/18 07:50 Dose: 100 mls/hr Magnesium Sulfate 2 gm/ Premix 50 mls @ 25 mls/hr IV ONETIME ONE Stop: 10/24/18 10:59 Last Admin: 10/24/18 09:39 Dose: 25 mls/hr Vancomycin HCl 1.5 gm/ Sodium (Chloride) 250 mls @ 167 mls/hr IV Q36H [facility] Last Admin: 10/26/18 09:35 Dose: Not Given Sodium Polystyrene Sulfonate (Kayexalate) 30 gm PO ONETIME ONE Stop: 10/23/18 17:42 Last Admin: 10/23/18 18:41 Dose: 30 gm Vancomycin HCl (Vancomycin) 1 gm IV .PHARMACY TO DOSE [facility] Stop: 10/24/18 10:00 Vancomycin HCl (Vancomycin) Confirm Administered Dose 2 gm .ROUTE .STK-MED ONE Stop: 10/23/18 20:27 Last Admin: 10/24/18 07:16 Dose: Not Given - Exam Quality Assessment: Supplemental Oxygen, DVT Prophylaxis General: Alert, Oriented, Cooperative, Mild Distress Lungs: Clear to Auscultation, Normal Respiratory Effort Cardiovascular: Regular Rate, Regular Rhythm, No Murmurs GI/Abdominal Exam: Soft, Non-Tender, No Organomegaly, No Distention Extremities: Non-Tender, Pedal Edema - Problem List Review Problem List Initiated/Reviewed/Updated: Yes - My Orders Last 24 Hours: My Active Orders 10/25/18 10:42 Consult to Physical Therapy [PT Evaluation and Treatment] [CONS] Routine OT Evaluation and Treatment [CONS] Routine 10/26/18 09:00 Carvedilol [Coreg] 12.5 mg PO BID Lactobacillus Rhamnosus GG [Culturelle] 1 cap PO BID Sulfamethoxazole/Trimethoprim [Septra DS] 1 tab PO BID 10/26/18 09:40 Furosemide [Lasix] 60 mg IVPUSH NOW ONE 10/26/18 09:45 Lisinopril [Prinivil] 5 mg PO BID 10/26/18 11:30 GLUCOSE POC LAB TO COLLECT [POC] QIDACANDBED 10/26/18 16:30 GLUCOSE POC LAB TO COLLECT [POC] QIDACANDBED 10/26/18 18:00 Furosemide [Lasix] 60 mg IVPUSH NOW ONE 10/26/18 21:00 GLUCOSE POC LAB TO COLLECT [POC] QIDACANDBED 10/27/18 05:00 BASIC METABOLIC PANEL,BMP [CHEM] Timed MAGNESIUM [CHEM] Timed 10/27/18 07:30 GLUCOSE POC LAB TO COLLECT [POC] QIDACANDBED 10/27/18 11:30 GLUCOSE POC LAB TO COLLECT [POC] QIDACANDBED 10/27/18 16:30 GLUCOSE POC LAB TO COLLECT [POC] QIDACANDBED 10/27/18 21:00 GLUCOSE POC LAB TO COLLECT [POC] QIDACANDBED 10/28/18 07:30 GLUCOSE POC LAB TO COLLECT [POC] QIDACANDBED 10/28/18 11:30 GLUCOSE POC LAB TO COLLECT [POC] QIDACANDBED 10/28/18 16:30 GLUCOSE POC LAB TO COLLECT [POC] QIDACANDBED - Plan Plan:: ASSESSMENT AND PLAN SCROTAL SWELLING AND TENDERNESS-good improvement in swelling and erythema, remains mildly tender -Saline lock IV -Furosemide 60 mg IV twice today ACUTE KIDNEY INJURY-at baseline has chronic kidney disease stage III with a creatinine of 1.7. Modest improvement in renal function since admission. Creatinine is stabilized at 2.4, this likely represents a new baseline for him. -Closely monitor urine output and renal function URINARY TRACT INFECTION-urinalysis obtained after admission shows evidence of underlying infection, urine culture growing Streptococcus non-A non-B -Discontinue IV vancomycin and meropenem -Septra DS 1 by mouth twice a day HYPERKALEMIA-resolved -Hold ARB -IV Lasix as above HYPERTENSION-pressures have been elevated over the last few days -Coreg increased to 12.5 mg twice daily -Lisinopril 5 mg by mouth twice daily TYPE 2 DIABETES MELLITUS -Hold glipizide and metformin -4 times a day glucometers -Low-dose sliding scale insulin MAINTENANCE ISSUES -DVT prophylaxis; Lovenox 30 mg subcutaneous daily -GI prophylaxis; continue outpatient H2 yesenia therapy -Eason catheter; not indicated -Nutrition; consistent carb diet -Nicotine dependence; patient smokes daily but declines nicotine replacement CODE STATUS-FULL CODE ADMISSION STATUS-patient will be admitted to inpatient status, expect at least a 2 night hospital stay for evaluation and management of problems as outlined above. At the time of this admission I do not reasonably expected evaluation and management of this problem will require more than a 96 hour hospital stay. DISPOSITION-anticipate discharge to home after the hospital stay. PRIMARY CARE PROVIDER-[facility]
[2018-10-26] MEDS: Lisinopril 5 MG Tab PO SCH ×2 (10:18→21:42)
[2018-10-26] MEDS: Enoxaparin 30 MG/0.3 ML Syringe SUBCUT SCH (16:59)
[2018-10-26] MEDS: Insulin Glargine,Human Rec. Analog 100 Units/ML 3 ML Pen SUBCUT SCH (21:39)
[2018-10-27] MEDS: Acetaminophen 325 MG Tab PO PRN (01:26)
[2018-10-27] MEDS: Nystatin Topical Powder 15 GM Bottle TOP SCH ×4 (06:27→21:01)
[2018-10-27] MEDS ORDERED: Magnesium Sulfate/Water 2 GM in Premix Bag 1 BAG IV ONE (09:00)
[2018-10-27] MEDS: Insulin Lispro 100 Unit/ML 3 ML KwikPen SUBCUT SCH ×4 (09:29→20:59)
[2018-10-27] MEDS: Gabapentin 400 MG Cap PO SCH ×2 (09:31→21:03)
[2018-10-27] MEDS: atorvaSTATin 20 MG Tab PO SCH (09:31)
[2018-10-27] MEDS: amLODIPine 10 MG Tab PO SCH (09:31)
[2018-10-27] MEDS: Lactobacillus Rhamnosus GG (Probiotic) Cap PO SCH ×2 (09:31→21:01)
[2018-10-27] MEDS: Magnesium Oxide 400 MG Tab PO SCH ×2 (09:31→21:03)
[2018-10-27] MEDS: Clopidogrel 75 MG Tab PO SCH (09:31)
[2018-10-27] MEDS: Baclofen 10 MG Tab PO SCH ×3 (09:31→21:02)
[2018-10-27] MEDS: Carvedilol 12.5 MG Tab PO SCH ×2 (09:32→21:02)
[2018-10-27] MEDS: Escitalopram 10 MG Tab PO SCH (09:32)
[2018-10-27] MEDS: Aspirin 81 MG Tab.EC PO SCH (09:32)
[2018-10-27] MEDS: Lisinopril 5 MG Tab PO SCH ×2 (09:33→21:04)
[2018-10-27] MEDS: Famotidine 20 MG Tab PO SCH (09:33)
[2018-10-27] MEDS: Sulfamethoxazole/Trimethoprim 800-160 MG Tab PO SCH ×2 (09:33→21:02)
--- NOTE | 2018-10-27 10:50 | PCM.PN ---
- General Info Date of Service: 10/27/18 Subjective Update: Mr. Turner has been stable since yesterday, only slight temperature elevation. Further improvement in dependent edema as well as scrotal swelling. Short-term is much less tender and erythematous than it had been on admission. He remains fairly weak, we'll ask physical therapy to assess transfers today. He has shown ongoing oxygen desaturation at night consistent with sleep apnea and has required oxygen while sleeping. Glucose levels under better control with current insulin regimen. Because of his chronic kidney disease will be unable to resume metformin the time of discharge. - Review of Systems General: Reports: Fever. Denies: Weakness, Chills Pulmonary: Reports: No Symptoms Cardiovascular: Reports: Edema. Denies: Chest Pain, Palpitations, Dyspnea on Exertion, Orthopnea, PND Gastrointestinal: Reports: No Symptoms - Patient Data Vitals - Most Recent: Last Vital Signs Temp 98.6 F 10/27/18 07:00 Pulse 81 10/27/18 09:32 Resp 18 10/27/18 07:00 BP 133/47 L 10/27/18 09:33 Pulse Ox 94 L 10/27/18 08:00 Weight - Most Recent: 280 lb 0.005 oz I&O - Last 24 Hours: Intake & Output 10/26/18 10/27/18 10/27/18 22:59 06:59 14:59 Output Total 500 1 Balance -500 -1 Lab Results Last 24 Hours: Laboratory Results - last 24 hr 10/27/18 Range/Units 05:00 Sodium 142 (140-148) mmol/L Potassium 4.4 (3.6-5.2) mmol/L Chloride 108 (100-108) mmol/L Carbon Dioxide 29 (21-32) mmol/L Anion Gap 5.3 (5.0-14.0) mmol/L BUN 35 H (7-18) mg/dL Creatinine 2.7 H (0.8-1.3) mg/dL Est Cr Clr Drug Dosing 31.23 mL/min Estimated GFR (MDRD) 25 L (>60) Glucose 96 (74-106) mg/dL Calcium 8.3 L (8.5-10.1) mg/dL Magnesium 1.7 L (1.8-2.4) mg/dL James Results Last 24 Hours: Microbiology 10/23/18 22:31 Urine Culture - Final Urine, Clean Catch Beta Strep Not Group A Or B Med Orders - Current: Current Medications Acetaminophen (Tylenol) 650 mg PO Q4H PRN PRN Reason: Pain (Mild 1-3)/fever Last Admin: 10/27/18 01:26 Dose: 650 mg Albuterol (Proventil Neb Soln) 2.5 mg NEB Q4H PRN PRN Reason: Shortness Of Breath/wheezing Amlodipine Besylate (Norvasc) 10 mg PO DAILY [facility] Last Admin: 10/27/18 09:31 Dose: 10 mg Aspirin (Halfprin) 81 mg PO DAILY [facility] Last Admin: 10/27/18 09:32 Dose: 81 mg Atorvastatin Calcium (Lipitor) 40 mg PO DAILY [facility] Last Admin: 10/27/18 09:31 Dose: 40 mg Baclofen (Lioresal) 10 mg PO TID [facility] Last Admin: 10/27/18 09:31 Dose: 10 mg Carvedilol (Coreg) 12.5 mg PO BID [facility] Last Admin: 10/27/18 09:32 Dose: 12.5 mg Clopidogrel Bisulfate (Plavix) 75 mg PO DAILY [facility] Last Admin: 10/27/18 09:31 Dose: 75 mg Dextrose (Glutose 15) 15 gm PO ONETIME PRN PRN Reason: Hypoglycemia Dextrose/Water (Dextrose 50% In Water) 50 ml IV ONETIME PRN PRN Reason: Hypoglycemia Enoxaparin Sodium (Lovenox) 30 mg SUBCUT Q24H [facility] Last Admin: 10/26/18 16:59 Dose: 30 mg Escitalopram Oxalate (Lexapro) 10 mg PO DAILY [facility] Last Admin: 10/27/18 09:32 Dose: 10 mg Famotidine (Pepcid) 20 mg PO DAILY [facility] Last Admin: 10/27/18 09:33 Dose: 20 mg Gabapentin (Neurontin) 400 mg PO BID [facility] Last Admin: 10/27/18 09:31 Dose: 400 mg Hydromorphone HCl (Dilaudid) 0.5 mg IVPUSH Q4H PRN PRN Reason: Pain Last Admin: 10/23/18 20:13 Dose: 0.5 mg Magnesium Sulfate 2 gm/ Premix 50 mls @ 25 mls/hr IV ONETIME ONE Stop: 10/27/18 10:59 Last Admin: 10/27/18 09:33 Dose: 25 mls/hr Insulin Glargine (Lantus Solostar) 16 units SUBCUT BEDTIME [facility] Last Admin: 10/26/18 21:39 Dose: 16 units Insulin Human Lispro (Humalog) 0 unit SUBCUT QIDACANDBED [facility]; Protocol Last Admin: 10/27/18 09:29 Dose: Not Given Lactobacillus Rhamnosus (Culturelle) 1 cap PO BID [facility] Last Admin: 10/27/18 09:31 Dose: 1 cap Lisinopril (Prinivil) 5 mg PO BID [facility] Last Admin: 10/27/18 09:33 Dose: 5 mg Magnesium Oxide (Magnesium Oxide) 400 mg PO BID [facility] Last Admin: 10/27/18 09:31 Dose: 400 mg Nystatin (Nystop) 0 gm TOP QID [facility] Last Admin: 10/27/18 09:34 Dose: 1 applic Ondansetron HCl (Zofran) 4 mg IV Q4H PRN PRN Reason: Nausea/Vomiting Polyethylene Glycol (Miralax) 17 gm PO DAILY PRN PRN Reason: Constipation Last Admin: 10/24/18 20:06 Dose: 17 gm Sodium Chloride (Saline Flush) 10 ml FLUSH ASDIRECTED PRN PRN Reason: Keep Vein Open Trimethoprim/Sulfamethoxazole (Septra Ds) 1 tab PO BID [facility] Last Admin: 10/27/18 09:33 Dose: 1 tab Discontinued Medications Hydrocodone Bitart/Acetaminophen ([place] 325-5 Mg) 1 tab PO ONETIME ONE Stop: 10/23/18 15:10 Last Admin: 10/23/18 15:31 Dose: 1 tab Carvedilol (Coreg) 12.5 mg PO DAILY [facility] Last Admin: 10/25/18 08:54 Dose: 12.5 mg Carvedilol (Coreg) 12.5 mg PO ONETIME ONE Stop: 10/25/18 21:31 Last Admin: 10/25/18 21:29 Dose: 12.5 mg Enoxaparin Sodium (Lovenox) 30 mg SUBCUT DAILY [facility] Last Admin: 10/23/18 18:42 Dose: 30 mg Furosemide (Lasix) 60 mg IVPUSH ONETIME ONE Stop: 10/24/18 12:31 Last Admin: 10/24/18 13:21 Dose: 60 mg Furosemide (Lasix) 80 mg IVPUSH NOW ONE Stop: 10/25/18 08:46 Last Admin: 10/25/18 09:15 Dose: 80 mg Furosemide (Lasix) 40 mg IVPUSH NOW ONE Stop: 10/25/18 18:01 Last Admin: 10/25/18 17:53 Dose: 40 mg Furosemide 20 mg/ Furosemide (40 mg) 60 mg IV Q8H KYLEE Stop: 10/26/18 18:01 Last Admin: 10/26/18 16:59 Dose: 60 mg Gabapentin (Neurontin) 600 mg PO QID [facility] Last Admin: 10/24/18 09:40 Dose: 600 mg Levofloxacin/Dextrose 750 mg/ (Premix) 150 mls @ 100 mls/hr IV ONETIME ONE Stop: 10/23/18 16:40 Last Admin: 10/23/18 15:41 Dose: 100 mls/hr Sodium Chloride (Normal Saline) 1,000 mls @ 1,000 mls/hr IV .BOLUS ONE Stop: 10/23/18 16:10 Last Admin: 10/23/18 15:38 Dose: 1,000 mls/hr Sodium Chloride (Normal Saline) 500 mls @ 1,000 mls/hr IV .BOLUS ONE Stop: 10/23/18 17:20 Last Admin: 10/23/18 16:54 Dose: 1,000 mls/hr Piperacillin Sod/Tazobactam (Sod 3.375 gm/ Sodium Chloride) 50 mls @ 100 mls/ hr IV Q6H [facility] Last Admin: 10/23/18 20:10 Dose: Not Given Sodium Chloride (Normal Saline) 1,000 mls @ 125 mls/hr IV ASDIRECTED [facility] Last Admin: 10/24/18 06:15 Dose: 125 mls/hr Vancomycin HCl 2 gm/ Sodium (Chloride) 500 mls @ 250 mls/hr IV ONETIME ONE Stop: 10/23/18 21:59 Last Admin: 10/23/18 21:11 Dose: 250 mls/hr Vancomycin HCl 1.5 gm/ Sodium (Chloride) 250 mls @ 166.667 mls/hr IV Q24H [facility] Last Admin: 10/25/18 20:36 Dose: Not Given Meropenem 1 gm/ Sodium (Chloride) 50 mls @ 100 mls/hr IV Q12H [facility] Last Admin: 10/26/18 07:50 Dose: 100 mls/hr Magnesium Sulfate 2 gm/ Premix 50 mls @ 25 mls/hr IV ONETIME ONE Stop: 10/24/18 10:59 Last Admin: 10/24/18 09:39 Dose: 25 mls/hr Vancomycin HCl 1.5 gm/ Sodium (Chloride) 250 mls @ 167 mls/hr IV Q36H [facility] Last Admin: 10/26/18 09:35 Dose: Not Given Sodium Polystyrene Sulfonate (Kayexalate) 30 gm PO ONETIME ONE Stop: 10/23/18 17:42 Last Admin: 10/23/18 18:41 Dose: 30 gm Vancomycin HCl (Vancomycin) 1 gm IV .PHARMACY TO DOSE KYLEE Stop: 10/24/18 10:00 Vancomycin HCl (Vancomycin) Confirm Administered Dose 2 gm .ROUTE .STK-MED ONE Stop: 10/23/18 20:27 Last Admin: 10/24/18 07:16 Dose: Not Given - Exam Quality Assessment: Supplemental Oxygen, DVT Prophylaxis General: Alert, Oriented, Cooperative, No Acute Distress Lungs: Clear to Auscultation, Normal Respiratory Effort Cardiovascular: Regular Rate, Regular Rhythm, No Murmurs GI/Abdominal Exam: Soft, Non-Tender, No Organomegaly, No Distention Extremities: Non-Tender, Pedal Edema - Problem List Review Problem List Initiated/Reviewed/Updated: Yes - My Orders Last 24 Hours: My Active Orders 10/26/18 09:45 Lisinopril [Prinivil] 5 mg PO BID 10/27/18 09:00 Magnesium Sulfate/Water [Magnesium Sulfate in Water Premix] 2 gm Premix Bag 1 bag IV ONETIME 10/27/18 11:30 GLUCOSE POC LAB TO COLLECT [POC] QIDACANDBED 10/27/18 16:30 GLUCOSE POC LAB TO COLLECT [POC] QIDACANDBED 10/27/18 21:00 GLUCOSE POC LAB TO COLLECT [POC] QIDACANDBED 10/28/18 05:00 BASIC METABOLIC PANEL,BMP [CHEM] Timed MAGNESIUM [CHEM] Timed 10/28/18 07:30 GLUCOSE POC LAB TO COLLECT [POC] QIDACANDBED 10/28/18 11:30 GLUCOSE POC LAB TO COLLECT [POC] QIDACANDBED 10/28/18 16:30 GLUCOSE POC LAB TO COLLECT [POC] QIDACANDBED - Plan Plan:: ASSESSMENT AND PLAN SCROTAL SWELLING AND TENDERNESS-good improvement in swelling and erythema, remains mildly tender -Saline lock IV ACUTE KIDNEY INJURY-at baseline has chronic kidney disease stage . Renal function slightly worse with creatinine up to 2.7 with diuresis -Old furosemide today -Closely monitor urine output and renal function HYPOXIA WHILE SLEEPING-likely has underlying untreated sleep apnea -Plan for discharge to home with nocturnal oxygen -Outpatient sleep study in the next several weeks URINARY TRACT INFECTION-urinalysis obtained after admission shows evidence of underlying infection, urine culture growing Streptococcus non-A non-B -Septra DS 1 by mouth twice a day HYPERKALEMIA-resolved HYPERTENSION-blood pressures under better control with current management -Coreg increased to 12.5 mg twice daily -Lisinopril 5 mg by mouth twice daily TYPE 2 DIABETES MELLITUS-glucose levels under better control, will be unable to resume metformin at the time of discharge because of current kidney function -Hold glipizide and metformin -4 times a day glucometers -Low-dose sliding scale insulin -Long-acting insulin at bedtime MAINTENANCE ISSUES -DVT prophylaxis; Lovenox 30 mg subcutaneous daily -GI prophylaxis; continue outpatient H2 yesenia therapy -Eason catheter; not indicated -Nutrition; consistent carb diet -Nicotine dependence; patient smokes daily but declines nicotine replacement CODE STATUS-FULL CODE ADMISSION STATUS-patient will be admitted to inpatient status, expect at least a 2 night hospital stay for evaluation and management of problems as outlined above. At the time of this admission I do not reasonably expected evaluation and management of this problem will require more than a 96 hour hospital stay. DISPOSITION-anticipate discharge to home after the hospital stay. PRIMARY CARE PROVIDER-[facility]
[2018-10-27] MEDS: Enoxaparin 30 MG/0.3 ML Syringe SUBCUT SCH (17:53)
[2018-10-27] MEDS ORDERED: Insulin Glargine,Human Rec. Analog 100 Units/ML 3 ML Pen SUBCUT SCH (21:00)
[2018-10-28] MEDS: Nystatin Topical Powder 15 GM Bottle TOP SCH ×2 (07:33→11:52)
[2018-10-28] MEDS: Insulin Lispro 100 Unit/ML 3 ML KwikPen SUBCUT SCH ×2 (08:47→11:55)
[2018-10-28] MEDS: Magnesium Oxide 400 MG Tab PO SCH (08:48)
[2018-10-28] MEDS: Sulfamethoxazole/Trimethoprim 800-160 MG Tab PO SCH (08:48)
[2018-10-28] MEDS: atorvaSTATin 20 MG Tab PO SCH (08:48)
[2018-10-28] MEDS: Gabapentin 400 MG Cap PO SCH (08:48)
[2018-10-28] MEDS: Clopidogrel 75 MG Tab PO SCH (08:48)
[2018-10-28] MEDS: Escitalopram 10 MG Tab PO SCH (08:48)
[2018-10-28] MEDS: Baclofen 10 MG Tab PO SCH (08:48)
[2018-10-28] MEDS: Carvedilol 12.5 MG Tab PO SCH (08:49)
[2018-10-28] MEDS: Famotidine 20 MG Tab PO SCH (08:49)
[2018-10-28] MEDS: Aspirin 81 MG Tab.EC PO SCH (08:49)
[2018-10-28] MEDS: Lisinopril 5 MG Tab PO SCH (08:49)
[2018-10-28] MEDS: amLODIPine 10 MG Tab PO SCH (08:49)
[2018-10-28] MEDS: Lactobacillus Rhamnosus GG (Probiotic) Cap PO SCH (08:52)
[2018-10-28 11:06] VITALS: BP 141/63
--- NOTE | 2018-10-28 11:22 | PCM.DCSUM1 ---
Discharge Summary - Hospital Course Brief History: Mr. Turner is a 58-year-old gentleman who was admitted through the emergency department with fluid overload and significant scrotal swelling causing pain and difficulty with transfers. - Discharge Data Discharge Date: 10/28/18 Discharge Disposition: Home, W Home Health Agency 06 Condition: Fair - Discharge Diagnosis/Problem(s) (1) UTI (urinary tract infection) SNOMED Code(s): 22801290 ICD Code: N39.0 - URINARY TRACT INFECTION, SITE NOT SPECIFIED Status: Acute Current Visit: Yes (2) CKD (chronic kidney disease) stage 4, GFR 15-29 ml/min SNOMED Code(s): 608703678 ICD Code: N18.4 - CHRONIC KIDNEY DISEASE, STAGE 4 (SEVERE) Status: Acute Current Visit: Yes (3) Hyperkalemia SNOMED Code(s): 71437086 ICD Code: E87.5 - HYPERKALEMIA Status: Acute Current Visit: Yes (4) Scrotal swelling SNOMED Code(s): 144564734 ICD Code: N50.89 - OTHER SPECIFIED DISORDERS OF THE MALE GENITAL ORGANS Status: Acute Current Visit: Yes (5) Type 2 diabetes mellitus SNOMED Code(s): 44625327 ICD Code: E11.9 - TYPE 2 DIABETES MELLITUS WITHOUT COMPLICATIONS Status: Chronic Current Visit: No Qualifiers: Diabetes mellitus buttermaker helper insulin use: with chcf use Diabetes mellitus complication status: with circulatory complication Diabetes mellitus complication detail: with peripheral angiopathy with gangrene Qualified Code(s ): E11.52 - Type 2 diabetes mellitus with diabetic peripheral angiopathy with gangrene; Z79.4 - residential (current) use of insulin; Z79.4 - residential (current ) use of insulin; Z79.4 - residential (current) use of insulin; Z79.4 - superintendent container terminal (current) use of insulin (6) PVD (peripheral vascular disease) SNOMED Code(s): 650376032 ICD Code: I73.9 - PERIPHERAL VASCULAR DISEASE, UNSPECIFIED Status: Chronic Current Visit: No - Patient Summary/Data Consults: Consultations 10/25/18 10:42 Consult to Physical Therapy [PT Evaluation and Treatment] [CONS] Routine Please Evaluate and Treat. PT Reason for Consult: Weakness, BKA This query below is only for informational purposes and is not editable. Admission Diagnosis/Problem: Cellulitis OT Evaluation and Treatment [CONS] Routine Please Evaluate and Treat. OT Reason for Consult: Weakness, BKA This query below is only for informational purposes and is not editable. Admission Diagnosis/Problem: Cellulitis Hospital Course: Mr. Turner is a 58-year-old gentleman who was admitted through the emergency department with progressive weakness, scrotal swelling and tenderness, with acute kidney injury and hyperkalemia. He has a known history of long-standing type 2 diabetes mellitus. 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 He felt that he developed a urinary tract infection approximately 5 days prior to admission. Over the last 3 days he has experienced significant scrotal tenderness and swelling. He has not been aware of significant fevers or chills, but his appetite has been diminished. On evaluation in the emergency department his creatinine is significantly elevated from baseline and his potassium is elevated at 6.2. On admission he was given IV fluids for hydration, after 24 hours there had been modest improvement in urine output and renal function. He was started on regular IV diuretic therapy and over the next several days there was significant improvement in his dependent edema as well as scrotal and penile swelling. Initially was felt that he may have experienced cellulitis of the scrotum, after admission it was felt likely that swelling and tenderness was secondary to fluid overload rather than infection. He was treated for yeast infection of the intertriginous regions with nystatin powder. Urinalysis obtained after admission showed evidence of urinary tract infection. Urine culture was obtained and grew out beta strep non- A non-B and he was transitioned off of IV antibiotic therapy to oral Septra. On discharge she will complete another 2 days of Septra to complete a total course of therapy. Because of significant renal insufficiency noted on admission his metformin was discontinued, renal function remained essentially unchanged throughout hospital stay and it's likely that his current stage IV chronic kidney disease is his new baseline. Because of this metformin will be held on discharge he will be discharged to home with Lantus insulin 12 units subcutaneous in the evening. He will monitor 4 times a day glucometers and will be scheduled for follow-up appointment with life educator next week. Blood pressure was elevated during hospital course and his dose of Coreg was increased to 12.5 mg twice daily. He was noted to have significant hypoxia while sleeping, early in the morning of discharge he had a documented oxygen saturation on room air of 82% while sleeping that lasted abdomen minutes. He will be discharged home with nocturnal oxygen 2 L/m via nasal cannula night recommended that he be scheduled for an outpatient sleep study to evaluate for sleep apnea. Activity will be as tolerated and he will resume his usual diet. Follow-up appointment will be scheduled with his primary care provider within one week, BMP should be obtained at the time of follow-up appointment. - Patient Instructions Diet: Low Sodium, Diabetic Diet Activity: As Tolerated Other/Special Instructions: Please arrange for nocturnal home oxygen, 2 L/m via nasal cannula while sleeping. Please arrange for home care services after discharge including home physical therapy and occupational therapy. Please schedule follow-up appointment with primary care provider within one week, BMP should be obtained at the time of follow-up appointment. Please schedule follow- up appointment with life educator next week. - Discharge Plan *PRESCRIPTION DRUG MONITORING PROGRAM REVIEWED*: No *COPY OF PRESCRIPTION DRUG MONITORING REPORT IN PATIENT ANKITA: No Prescriptions/Med Rec: Carvedilol [Coreg] 12.5 mg PO BID #60 tablet Insulin Glarg,Human.Rec.Analog [Lantus Solostar] 12 units SUBCUT BEDTIME #1 pen Lactobacillus Rhamnosus GG [Culturelle] 1 cap PO BID #60 cap Sulfamethoxazole/Trimethoprim [Septra DS] 1 tab PO BID #4 tablet Home Medications: Home Meds Escitalopram [Lexapro] 10 mg PO DAILY 09/19/14 [History] Losartan [Cozaar] 50 mg PO DAILY 09/19/14 [History] amLODIPine Besylate [Amlodipine Besylate] 10 mg PO DAILY 09/19/14 [History] Clopidogrel [Plavix] 75 mg PO DAILY 11/03/15 [History] atorvaSTATin [Lipitor] 40 mg PO DAILY 11/03/15 [History] Famotidine [Pepcid] 20 mg PO DAILY 12/25/16 [History] Baclofen 10 mg PO TID #14 tablet 06/17/17 [Rx] Aspirin [Children's Aspirin] 81 mg PO DAILY 09/10/18 [History] Carvedilol [Coreg] 12.5 mg PO BID #60 tablet 10/28/18 [Rx] Insulin Glarg,Human.Rec.Analog [Lantus Solostar] 12 units SUBCUT BEDTIME #1 pen 10/28/18 [Rx] Lactobacillus Rhamnosus GG [Culturelle] 1 cap PO BID #60 cap 10/28/18 [Rx] Sulfamethoxazole/Trimethoprim [Septra DS] 1 tab PO BID #4 tablet 10/28/18 [Rx] Patient Handouts: Lactobacillus Oral formulations, Carvedilol tablets, Insulin Injection Instructions, Using Insulin Pens, Adult, Insulin Glargine injection, Sulfamethoxazole; Trimethoprim, SMX-TMP tablets Referrals: Sumanth Hill, HORSE TRADER [Primary Care Provider] - - Discharge Summary/Plan Comment DC Time >30 min.: No - Patient Data Vitals - Most Recent: Last Vital Signs Temp 96.2 F 10/28/18 11:00 Pulse 74 10/28/18 11:00 Resp 18 10/28/18 11:00 BP 141/63 H 10/28/18 11:00 Pulse Ox 100 10/28/18 11:00 Weight - Most Recent: 276 lb 8.236 oz I&O - Last 24 hours: Intake & Output 10/27/18 10/28/18 10/28/18 22:59 06:59 14:59 Output Total 600 400 Balance -600 -400 Lab Results - Last 24 hrs: Laboratory Results - last 24 hr 10/28/18 Range/Units 05:00 Sodium 141 (140-148) mmol/L Potassium 5.0 (3.6-5.2) mmol/L Chloride 107 (100-108) mmol/L Carbon Dioxide 26 (21-32) mmol/L Anion Gap 8.1 (5.0-14.0) mmol/L BUN 38 H (7-18) mg/dL Creatinine 2.8 H (0.8-1.3) mg/dL Est Cr Clr Drug Dosing 30.11 mL/min Estimated GFR (MDRD) 24 L (>60) Glucose 104 (74-106) mg/dL Calcium 8.1 L (8.5-10.1) mg/dL Magnesium 1.9 (1.8-2.4) mg/dL Med Orders - Current: Current Medications Acetaminophen (Tylenol) 650 mg PO Q4H PRN PRN Reason: Pain (Mild 1-3)/fever Last Admin: 10/27/18 01:26 Dose: 650 mg Albuterol (Proventil Neb Soln) 2.5 mg NEB Q4H PRN PRN Reason: Shortness Of Breath/wheezing Amlodipine Besylate (Norvasc) 10 mg PO DAILY [facility] Last Admin: 10/28/18 08:49 Dose: 10 mg Aspirin (Halfprin) 81 mg PO DAILY [facility] Last Admin: 10/28/18 08:49 Dose: 81 mg Atorvastatin Calcium (Lipitor) 40 mg PO DAILY [facility] Last Admin: 10/28/18 08:48 Dose: 40 mg Baclofen (Lioresal) 10 mg PO TID [facility] Last Admin: 10/28/18 08:48 Dose: 10 mg Carvedilol (Coreg) 12.5 mg PO BID [facility] Last Admin: 10/28/18 08:49 Dose: 12.5 mg Clopidogrel Bisulfate (Plavix) 75 mg PO DAILY [facility] Last Admin: 10/28/18 08:48 Dose: 75 mg Dextrose (Glutose 15) 15 gm PO ONETIME PRN PRN Reason: Hypoglycemia Dextrose/Water (Dextrose 50% In Water) 50 ml IV ONETIME PRN PRN Reason: Hypoglycemia Enoxaparin Sodium (Lovenox) 30 mg SUBCUT Q24H [facility] Last Admin: 10/27/18 17:53 Dose: 30 mg Escitalopram Oxalate (Lexapro) 10 mg PO DAILY [facility] Last Admin: 10/28/18 08:48 Dose: 10 mg Famotidine (Pepcid) 20 mg PO DAILY [facility] Last Admin: 10/28/18 08:49 Dose: 20 mg Gabapentin (Neurontin) 400 mg PO BID [facility] Last Admin: 10/28/18 08:48 Dose: 400 mg Hydromorphone HCl (Dilaudid) 0.5 mg IVPUSH Q4H PRN PRN Reason: Pain Last Admin: 10/23/18 20:13 Dose: 0.5 mg Insulin Glargine (Lantus Solostar) 12 units SUBCUT BEDTIME [facility] Last Admin: 10/27/18 21:05 Dose: 12 units Insulin Human Lispro (Humalog) 0 unit SUBCUT QIDACANDBED [facility]; Protocol Last Admin: 10/28/18 08:47 Dose: Not Given Lactobacillus Rhamnosus (Culturelle) 1 cap PO BID [facility] Last Admin: 10/28/18 08:52 Dose: 1 cap Lisinopril (Prinivil) 5 mg PO BID [facility] Last Admin: 10/28/18 08:49 Dose: 5 mg Magnesium Oxide (Magnesium Oxide) 400 mg PO BID [facility] Last Admin: 10/28/18 08:48 Dose: 400 mg Nystatin (Nystop) 0 gm TOP QID [facility] Last Admin: 10/28/18 07:33 Dose: Not Given Ondansetron HCl (Zofran) 4 mg IV Q4H PRN PRN Reason: Nausea/Vomiting Polyethylene Glycol (Miralax) 17 gm PO DAILY PRN PRN Reason: Constipation Last Admin: 10/24/18 20:06 Dose: 17 gm Sodium Chloride (Saline Flush) 10 ml FLUSH ASDIRECTED PRN PRN Reason: Keep Vein Open Trimethoprim/Sulfamethoxazole (Septra Ds) 1 tab PO BID [facility] Last Admin: 10/28/18 08:48 Dose: 1 tab Discontinued Medications Hydrocodone Bitart/Acetaminophen ([place] 325-5 Mg) 1 tab PO ONETIME ONE Stop: 10/23/18 15:10 Last Admin: 10/23/18 15:31 Dose: 1 tab Carvedilol (Coreg) 12.5 mg PO DAILY [facility] Last Admin: 10/25/18 08:54 Dose: 12.5 mg Carvedilol (Coreg) 12.5 mg PO ONETIME ONE Stop: 10/25/18 21:31 Last Admin: 10/25/18 21:29 Dose: 12.5 mg Enoxaparin Sodium (Lovenox) 30 mg SUBCUT DAILY [facility] Last Admin: 10/23/18 18:42 Dose: 30 mg Furosemide (Lasix) 60 mg IVPUSH ONETIME ONE Stop: 10/24/18 12:31 Last Admin: 10/24/18 13:21 Dose: 60 mg Furosemide (Lasix) 80 mg IVPUSH NOW ONE Stop: 10/25/18 08:46 Last Admin: 10/25/18 09:15 Dose: 80 mg Furosemide (Lasix) 40 mg IVPUSH NOW ONE Stop: 10/25/18 18:01 Last Admin: 10/25/18 17:53 Dose: 40 mg Furosemide 20 mg/ Furosemide (40 mg) 60 mg IV Q8H [facility] Stop: 10/26/18 18:01 Last Admin: 10/26/18 16:59 Dose: 60 mg Gabapentin (Neurontin) 600 mg PO QID [facility] Last Admin: 10/24/18 09:40 Dose: 600 mg Levofloxacin/Dextrose 750 mg/ (Premix) 150 mls @ 100 mls/hr IV ONETIME ONE Stop: 10/23/18 16:40 Last Admin: 10/23/18 15:41 Dose: 100 mls/hr Sodium Chloride (Normal Saline) 1,000 mls @ 1,000 mls/hr IV .BOLUS ONE Stop: 10/23/18 16:10 Last Admin: 10/23/18 15:38 Dose: 1,000 mls/hr Sodium Chloride (Normal Saline) 500 mls @ 1,000 mls/hr IV .BOLUS ONE Stop: 10/23/18 17:20 Last Admin: 10/23/18 16:54 Dose: 1,000 mls/hr Piperacillin Sod/Tazobactam (Sod 3.375 gm/ Sodium Chloride) 50 mls @ 100 mls/ hr IV Q6H [facility] Last Admin: 10/23/18 20:10 Dose: Not Given Sodium Chloride (Normal Saline) 1,000 mls @ 125 mls/hr IV ASDIRECTED [facility] Last Admin: 10/24/18 06:15 Dose: 125 mls/hr Vancomycin HCl 2 gm/ Sodium (Chloride) 500 mls @ 250 mls/hr IV ONETIME ONE Stop: 10/23/18 21:59 Last Admin: 10/23/18 21:11 Dose: 250 mls/hr Vancomycin HCl 1.5 gm/ Sodium (Chloride) 250 mls @ 166.667 mls/hr IV Q24H [facility] Last Admin: 10/25/18 20:36 Dose: Not Given Meropenem 1 gm/ Sodium (Chloride) 50 mls @ 100 mls/hr IV Q12H [facility] Last Admin: 10/26/18 07:50 Dose: 100 mls/hr Magnesium Sulfate 2 gm/ Premix 50 mls @ 25 mls/hr IV ONETIME ONE Stop: 10/24/18 10:59 Last Admin: 10/24/18 09:39 Dose: 25 mls/hr Vancomycin HCl 1.5 gm/ Sodium (Chloride) 250 mls @ 167 mls/hr IV Q36H [facility] Last Admin: 10/26/18 09:35 Dose: Not Given Magnesium Sulfate 2 gm/ Premix 50 mls @ 25 mls/hr IV ONETIME ONE Stop: 10/27/18 10:59 Last Admin: 10/27/18 09:33 Dose: 25 mls/hr Insulin Glargine (Lantus Solostar) 16 units SUBCUT BEDTIME [facility] Last Admin: 10/26/18 21:39 Dose: 16 units Sodium Polystyrene Sulfonate (Kayexalate) 30 gm PO ONETIME ONE Stop: 10/23/18 17:42 Last Admin: 10/23/18 18:41 Dose: 30 gm Vancomycin HCl (Vancomycin) 1 gm IV .PHARMACY TO DOSE KYLEE Stop: 10/24/18 10:00 Vancomycin HCl (Vancomycin) Confirm Administered Dose 2 gm .ROUTE .STK-MED ONE Stop: 10/23/18 20:27 Last Admin: 10/24/18 07:16 Dose: Not Given - Exam Quality Assessment: Reports: DVT Prophylaxis General: Reports: Alert, Oriented, Cooperative, No Acute Distress Lungs: Reports: Clear to Auscultation, Normal Respiratory Effort Cardiovascular: Reports: Regular Rate, Regular Rhythm, No Murmurs GI/Abdominal Exam: Soft, Non-Tender, No Organomegaly, No Distention Extremities: Non-Tender, Pedal Edema Skin: Reports: Warm, Dry
== END 2018-10-28 13:13 | disposition home health service (06) | DRG 690 ==
LOC: JP.ED 14:02 → JP.MS 17:02 → UNDOADMIN 17:02 → JP.ED 17:32 → JP.MS 17:41
PROVIDERS: ADMIT Hospitalist; ATTEND Hospitalist
DX: N50.89 Other specified disorders of the male genital organs (principal); N39.0 Urinary tract infection, site not specified; N17.9 Acute kidney failure, unspecified; N18.4 Chronic kidney disease, stage 4 (severe); B95.5 Unspecified streptococcus as the cause of diseases classified elsewhere; E87.70 Fluid overload, unspecified; E11.65 Type 2 diabetes mellitus with hyperglycemia; E11.40 Type 2 diabetes mellitus with diabetic neuropathy, unspecified; N18.3 Chronic kidney disease, stage 3 (moderate); R82.90 Unspecified abnormal findings in urine; Z79.84 Long term (current) use of oral hypoglycemic drugs; E11.51 Type 2 diabetes mellitus with diabetic peripheral angiopathy without gangrene; I73.9 Peripheral vascular disease, unspecified; E87.5 Hyperkalemia; F17.210 Nicotine dependence, cigarettes, uncomplicated; I12.9 Hypertensive chronic kidney disease with stage 1 through stage 4 chronic kidney disease, or unspecified chronic kidney disease; E11.22 Type 2 diabetes mellitus with diabetic chronic kidney disease; B37.2 Candidiasis of skin and nail; G47.34 Idiopathic sleep related nonobstructive alveolar hypoventilation; Z99.81 Dependence on supplemental oxygen; Z86.73 Personal history of transient ischemic attack (TIA), and cerebral infarction without residual deficits; E78.00 Pure hypercholesterolemia, unspecified; J30.9 Allergic rhinitis, unspecified; K21.9 Gastro-esophageal reflux disease without esophagitis; Z87.440 Personal history of urinary (tract) infections; M19.90 Unspecified osteoarthritis, unspecified site; F32.9 Major depressive disorder, single episode, unspecified; Z89.421 Acquired absence of other right toe(s); Z89.412 Acquired absence of left great toe; Z79.82 Long term (current) use of aspirin; Z79.4 Long term (current) use of insulin; Z88.1 Allergy status to other antibiotic agents; Z88.8 Allergy status to other drugs, medicaments and biological substances
CPT/HCPCS: 36415; 80048; 81001; 85027; 86140; 93005; 96365; 99284; A9270; J1956; J7030; J7040; 80202; 82962; 83735; 84132; 85025; 87086; 87088; 94762; 97110-GP; 97140-GP; 97162-GP; 97165-GO; 97530-GP; 97535-GP; 99285; J1170; J1650; J1815; J1815-GY; J1940; J2185; J3370; J3475; J7050

== ENCOUNTER 2019-03-08 16:47 | Inpatient (IN) | payer MEDICARE ==
[2019-03-08] MEDS ORDERED: fentaNYL 100 MCG/2 ML SDV IVPUSH ONE (17:20)
[2019-03-08] MEDS ORDERED: Sodium Chloride 0.9% 10 ML Syringe FLUSH PRN (17:20)
--- NOTE | 2019-03-08 17:24 | EDM.PDOC ---
<OfficerMic - Last Filed: 03/08/19 17:19> ED HPI GENERAL MEDICAL PROBLEM - General Chief Complaint: General Stated Complaint: MEDICAL [facility]IA [facility] Time Seen by Provider: 03/08/19 17:09 Source of Information: Reports: Patient, Old Records, RN Notes Reviewed History Limitations: Reports: No Limitations - History of Present Illness INITIAL COMMENTS - FREE TEXT/NARRATIVE: 58-year-old gentleman presents to emergency department today with complaint of scrotal swelling, he arrives by EMS services he is also complaining of tenderness and burning sensation in his right leg he states the right leg has gotten significantly worse over the past 3 days with skin breakdown and swelling. He does have a known history of diabetes mellitus type 2 as well as status post amputation of the left lower extremity. Was admitted to the hospital back in October of this year for similar complaint. - Related Data Allergies Allergy/AdvReac Type Severity Reaction Status Date / Time atenolol [From Tenormin] Allergy Cannot Verified 03/08/19 22:53 Remember cephalexin monohydrate Allergy Hives Verified 03/08/19 22:53 [From Keflex] lisinopril [From Zestril] Allergy Cannot Verified 03/08/19 22:53 Remember penicillin V potassium Allergy Hives Verified 03/08/19 22:53 [From Pen-Vee K] Home Meds: Home Meds Escitalopram [Lexapro] 10 mg PO DAILY 09/19/14 [History] Losartan [Cozaar] 50 mg PO DAILY 09/19/14 [History] amLODIPine Besylate [Amlodipine Besylate] 10 mg PO DAILY 09/19/14 [History] Clopidogrel [Plavix] 75 mg PO DAILY 11/03/15 [History] atorvaSTATin [Lipitor] 40 mg PO DAILY 11/03/15 [History] Famotidine [Pepcid] 20 mg PO DAILY 12/25/16 [History] Baclofen 10 mg PO TID #14 tablet 06/17/17 [Rx] Aspirin [Children's Aspirin] 81 mg PO DAILY 09/10/18 [History] Carvedilol [Coreg] 12.5 mg PO BID #60 tablet 10/28/18 [Rx] Insulin Glarg,Human.Rec.Analog [Lantus Solostar] 12 units SUBCUT BEDTIME #1 pen 10/28/18 [Rx] Lactobacillus Rhamnosus GG [Culturelle] 1 cap PO BID #60 cap 10/28/18 [Rx] Past Medical History HEENT History: Reports: Allergic Rhinitis, Impaired Vision Cardiovascular History: Reports: High Cholesterol, Hypertension Other Cardiovascular History: angiogram Gastrointestinal History: Reports: Chronic Diarrhea, GERD Other Gastrointestinal History: due to antx therapy Genitourinary History: Reports: UTI, Recurrent Musculoskeletal History: Reports: Fracture, Osteoarthritis Neurological History: Reports: CVA, Neuropathy, Diabetic Psychiatric History: Reports: Depression Endocrine/Metabolic History: Reports: Diabetes, Type II, Obesity/BMI 30+ Hematologic History: Reports: None Immunologic History: Reports: None Oncologic (Cancer) History: Reports: None Dermatologic History: Reports: None Other Dermatologic History: toe amp rash from sun - Infectious Disease History Infectious Disease History: Reports: Chicken Pox - Past Surgical History Head Surgeries/Procedures: Reports: None HEENT Surgical History: Reports: None Cardiovascular Surgical History: Reports: None Respiratory Surgical History: Reports: None GI Surgical History: Reports: None Neurological Surgical History: Reports: None Musculoskeletal Surgical History: Reports: Amputation Other Musculoskeletal Surgeries/Procedures:: right foot 2nd and 3rd toe amp Dermatological Surgical History: Reports: Skin Graft Social & Family History - Tobacco Use Smoking Status *Q: Unknown Ever Smoked - Caffeine Use Caffeine Use: Reports: Coffee ED ROS GENERAL - Review of Systems Review Of Systems: See Below Constitutional: Reports: No Symptoms HEENT: Reports: No Symptoms Respiratory: Reports: No Symptoms Cardiovascular: Reports: No Symptoms GI/Abdominal: Reports: No Symptoms : Reports: No Symptoms Musculoskeletal: Reports: Leg Pain Skin: Reports: Pallor, Bruising, Rash, Erythema ED EXAM, GENERAL - Physical Exam Exam: See Below Free Text/Narrative:: Examination of lower extremity on the right side he does have +2 pitting edema starting have skin breakdown on the lower extremities circumferentially, digits 2 and 3 are missing he does have open ulcers on digit 4 skin breakdown is starting over the first metatarsal head pedal pulses not palpable Exam Limited By: No Limitations General Appearance: Alert, WD/WN, No Apparent Distress Respiratory/Chest: No Respiratory Distress, Lungs Clear, Normal Breath Sounds, No Accessory Muscle Use, Chest Non-Tender Cardiovascular: Regular Rate, Rhythm, No Murmur GI/Abdominal: Soft, Non-Tender (Male) Exam: Scrotal Swelling, Scrotum Tenderness (L), Scrotum Tenderness (R) . No: Circumcised Course - Vital Signs Last Recorded V/S: Last Vital Signs Temp 98.8 F 03/08/19 22:59 Pulse 102 H 03/08/19 22:59 Resp 18 03/08/19 22:59 BP 185/86 H 03/08/19 22:59 Pulse Ox 97 03/08/19 22:59 - Orders/Labs/Meds Orders: Active Orders 24 hr Category Date Time Status Eason Catheter Insertion [Insert Urinary Catheter] [OM. Care 03/08/19 18:30 Ordered PC] Q24H Peripheral IV Care [RC] . DIRECTED Care 03/08/19 17:20 Active Urinary Catheter Assessment [RC] ASDIRECTED Care 03/08/19 18:28 Active Vital Signs [RC] Q1H Care 03/08/19 17:17 Active CULTURE BLOOD [BC] Urgent Lab 03/08/19 17:20 Received CULTURE BLOOD [BC] Urgent Lab 03/08/19 17:30 Received CULTURE URINE [RM] Stat Lab 03/08/19 19:14 Received Lactated Ringers [Ringers, Lactated] 1,000 ml Med 03/08/19 17:30 Active IV ASDIRECTED Sodium Chloride 0.9% [Saline Flush] Med 03/08/19 17:20 Active 10 ml FLUSH ASDIRECTED PRN Blood Culture x2 Reflex Set [OM.PC] Urgent Oth 03/08/19 17:17 Ordered Peripheral IV Insertion Adult [OM.PC] Urgent Oth 03/08/19 17:20 Ordered Medication Orders Lactated Ringer's (Ringers, Lactated) 1,000 mls @ 999 mls/hr IV ASDIRECTED [facility] Last Admin: 03/08/19 17:45 Dose: 999 mls/hr Sodium Chloride (Saline Flush) 10 ml FLUSH ASDIRECTED PRN PRN Reason: Keep Vein Open Labs: Laboratory Tests 03/08/19 03/08/19 03/08/19 Range/Units 17:20 17:20 17:20 WBC 9.2 (4.5-11.0) K/uL RBC 4.01 L (4.30-5.90) M/uL Hgb 10.6 L (12.0-15.0) g/dL Hct 32.7 L (40.0-54.0) % MCV 82 (80-98) fL MCH 26 L (27-31) pg MCHC 32 (32-36) % Plt Count 234 (150-400) K/uL Neut % (Auto) 79 H (36-66) % Lymph % (Auto) 12 L (24-44) % Sutton % (Auto) 8 H (2-6) % Eos % (Auto) 2 (2-4) % Baso % (Auto) 0 (0-1) % Sodium 135 L (140-148) mmol/L Potassium 5.2 (3.6-5.2) mmol/L Chloride 105 (100-108) mmol/L Carbon Dioxide 19 L (21-32) mmol/L Anion Gap 16.2 H (5.0-14.0) mmol/L BUN 52 H (7-18) mg/dL Creatinine 3.4 H (0.8-1.3) mg/dL Est Cr Clr Drug Dosing 24.26 mL/min Estimated GFR (MDRD) 19 L (>60) Glucose 162 H (74-106) mg/dL Lactic Acid 1.2 (0.4-2.0) mmol/L Calcium 7.9 L (8.5-10.1) mg/dL Total Bilirubin 0.2 D (0.2-1.0) mg/dL AST 34 (15-37) U/L ALT 27 (12-78) U/L Alkaline Phosphatase 113 (46-116) U/L C-Reactive Protein 7.38 H (0.0-0.3) mg/dL Total Protein 6.1 L (6.4-8.2) g/dL Albumin 1.5 L (3.4-5.0) g/dL Globulin 4.6 H (2.3-3.5) g/dL Albumin/Globulin Ratio 0.3 L (1.2-2.2) Procalcitonin 0.40 ng/mL Urine Color (YELLOW) Urine Appearance (CLEAR) Urine pH (5.0-8.0) Ur Specific [place] (1.008-1.030) Urine Protein (NEGATIVE) mg/dL Urine Glucose (UA) (NEGATIVE) mg/dL Urine Ketones (NEGATIVE) mg/dL Urine Occult Blood (NEGATIVE) Urine Nitrite (NEGATIVE) Urine Bilirubin (NEGATIVE) Urine Urobilinogen (0.2-1.0) EU/dL Ur Leukocyte Esterase (NEGATIVE) Urine RBC (0-5) Urine WBC (0-5) Ur Epithelial Cells Amorphous Sediment Urine Bacteria Urine Mucus 03/08/19 Range/Units 18:53 WBC (4.5-11.0) K/uL RBC (4.30-5.90) M/uL Hgb (12.0-15.0) g/dL Hct (40.0-54.0) % MCV (80-98) fL MCH (27-31) pg MCHC (32-36) % Plt Count (150-400) K/uL Neut % (Auto) (36-66) % Lymph % (Auto) (24-44) % Sutton % (Auto) (2-6) % Eos % (Auto) (2-4) % Baso % (Auto) (0-1) % Sodium (140-148) mmol/L Potassium (3.6-5.2) mmol/L Chloride (100-108) mmol/L Carbon Dioxide (21-32) mmol/L Anion Gap (5.0-14.0) mmol/L BUN (7-18) mg/dL Creatinine (0.8-1.3) mg/dL Est Cr Clr Drug Dosing mL/min Estimated GFR (MDRD) (>60) Glucose (74-106) mg/dL Lactic Acid (0.4-2.0) mmol/L Calcium (8.5-10.1) mg/dL Total Bilirubin (0.2-1.0) mg/dL AST (15-37) U/L ALT (12-78) U/L Alkaline Phosphatase (46-116) U/L C-Reactive Protein (0.0-0.3) mg/dL Total Protein (6.4-8.2) g/dL Albumin (3.4-5.0) g/dL Globulin (2.3-3.5) g/dL Albumin/Globulin Ratio (1.2-2.2) Procalcitonin ng/mL Urine Color Yellow (YELLOW) Urine Appearance Slightly cloudy A (CLEAR) Urine pH 6.5 (5.0-8.0) Ur Specific [place] 1.020 (1.008-1.030) Urine Protein >=300 H (NEGATIVE) mg/dL Urine Glucose (UA) 250 H (NEGATIVE) mg/dL Urine Ketones Negative (NEGATIVE) mg/dL Urine Occult Blood Moderate H (NEGATIVE) Urine Nitrite Positive H (NEGATIVE) Urine Bilirubin Negative (NEGATIVE) Urine Urobilinogen 0.2 (0.2-1.0) EU/dL Ur Leukocyte Esterase Trace H (NEGATIVE) Urine RBC 5-10 H (0-5) Urine WBC Semi-packed H (0-5) Ur Epithelial Cells Few Amorphous Sediment Not seen Urine Bacteria Many Urine Mucus Few Meds: Medications Generic Name Dose Route Start Last Admin Trade Name Freq PRN Reason Stop Dose Admin Lactated Ringer's 1,000 mls @ 999 mls/hr 03/08/19 17:30 03/08/19 17:45 Ringers, Lactated IV 999 mls/hr ASDIRECTED KYLEE Administration Sodium Chloride 10 ml 03/08/19 17:20 Saline Flush FLUSH ASDIRECTED PRN Keep Vein Open Discontinued Medications Generic Name Dose Route Start Last Admin Trade Name Freq PRN Reason Stop Dose Admin Fentanyl 50 mcg 03/08/19 17:20 03/08/19 17:45 Sublimaze IVPUSH 03/08/19 17:21 50 mcg ONETIME ONE Administration Levofloxacin/Dextrose 500 mg/ 100 mls @ 100 mls/hr 03/08/19 19:09 03/08/19 19 :37 Premix IV 03/08/19 20:08 100 mls/hr ONETIME ONE Administration Departure - Departure Disposition: Admitted As Inpatient 68 Clinical Impression: Renal failure Qualifiers: Renal failure chronicity: acute on chronic Chronic kidney disease stage: stage 4 (severe) UTI (urinary tract infection) Qualifiers: Urinary tract infection type: site unspecified Hematuria presence: with hematuria Qualified Code(s): N39.0 - Urinary tract infection, site not specified - Discharge Information - My Orders Last 24 Hours: My Active Orders 03/08/19 19:14 CULTURE URINE [RM] Stat - Assessment/Plan Last 24 Hours: My Active Orders 03/08/19 19:14 CULTURE URINE [RM] Stat <Nahum Muñoz - Last Filed: 03/08/19 23:28> ED HPI GENERAL MEDICAL PROBLEM Right Leg Pain Score (Numeric/FACES): 7 Course - Re-Assessments/Exams Free Text/Narrative Re-Assessment/Exam: 03/08/19 19:22 Patient care accepted from Officer pending urine test. They were markedly positive, nitrate positive with WBCs and bacteria. This was a catheter specimen. 500 mg of Levaquin was started, urine culture ordered and transferred to [facility] arranged with acceptance by Dr. Ward at 19:10. 03/08/19 22:11 Unfortunately after the acceptance, patient could not be transferred due to weather conditions. Dr. Ryder agreed to come in and admit the patient overnight and he can be reassessed for transfer in the morning. Departure - Departure Time of Disposition: 22:48
[2019-03-08] MEDS ORDERED: Lactated Ringers 1,000 ML IV SCH (17:30)
[2019-03-08] MEDS ORDERED: Levofloxacin/Dextrose 5%-Water 500 MG in Premix Bag 1 BAG IV ONE (19:09)
[2019-03-09] MEDS: oxyCODONE 5 MG Tab PO PRN ×2 (00:20→06:05)
[2019-03-09] MEDS ORDERED: Vancomycin 1,750 GM in Sodium Chloride 0.9% 500 ML IV ONE (00:36)
[2019-03-09] MEDS ORDERED: Vancomycin 1.75 GM in Sodium Chloride 0.9% 500 ML IV ONE (00:51)
[2019-03-09] MEDS ORDERED: Vancomycin 1 GM SDV ONE ×2 (01:10→01:11)
--- NOTE | 2019-03-09 01:45 | HP ---
IDENTIFYING DATA: Jose Turner is a 58-year-old single male from [place], [place]. CHIEF COMPLAINT: Right leg pain, weakness, and scrotal swelling. HISTORY OF PRESENT ILLNESS: Adult male is chronically disabled by longstanding type 2 diabetes with accompanying peripheral vascular disease. He has had a previous left leg amputation with vascular impairment and recurrent tissue necrosis and ulcers developing on the right foot. He has had previous amputations of the right 2nd and 3rd toes and chronic wound therapy provided by Dr. Jama. He reports previous vascular stenting to the right and left femoral regions. Over the last 3 days, he has had increasing weakness, subjective chills, development of pain in the right leg as well as increased urinary frequency. Appetite has been diminished. He presented to the emergency room and was found to have evidence of bacteria and pyuria suggesting an active urinary tract infection as well as suspicion for developing cellulitis of his right leg. Additionally, he has a noted history of chronic renal failure with acute exacerbation and a modest rise in creatinine identified. PAST MEDICAL HISTORY: Previous surgeries include amputation of the right 2nd and 3rd digits of the feet, left leg amputation, and previous appendectomy. Additional chronic health problems include longstanding type 2 diabetes with insulin therapy, hypertension, and hyperlipidemia. He denies a history of chronic cardiac disease, stroke, stroke-like episodes, or respiratory disease. Chronic peripheral neuropathy is noted by the patient. HABITS: Smoker, reporting reduced consumption currently at 1/2 to 3/4 packs per day. Caffeine intake averages 3 cups of coffee daily with previous use of 1-3 pots per day and a 12-pack of Mountain Dew, now abstaining. Alcohol use previously was heavy. He notes rare intake of alcohol for the past 2 years. IMMUNIZATIONS: Refuses influenza vaccine. States he does receive pneumococcal vaccines. ALLERGIES: REPORTED TO ATENOLOL, CEPHALEXIN, PENICILLIN, AND LISINOPRIL. CURRENT MEDICATIONS: Famotidine 20 mg daily, clopidogrel 75 mg daily, baclofen 10 mg t.i.d., atorvastatin 40 mg daily, escitalopram 10 mg daily, amlodipine 10 mg daily, Lantus 12 units subcu at bedtime, losartan 50 mg daily, carvedilol 12.5 mg b.i.d., ferrous sulfate 325 mg b.i.d., aspirin 81 mg daily, nystatin powder applied p.r.n. 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 He reports he has been disabled for 3 years' time. Currently lives in his residence with a roommate providing assistance as necessary. He is largely wheelchair bound. He is able to self transfer when at his baseline. He has not been driving following his leg amputation. Family provides transportation as needed. FAMILY HISTORY: Notes mother had a history of type 2 diabetes and advanced ischemic heart disease with recurrent MIs, dying secondary to cardiac disease. REVIEW OF SYSTEMS: NEUROLOGIC: No history of strokes, seizures, chronic headaches, glaucoma, or cataracts. He does cheaters to aid his near vision. No hearing loss. Chronic peripheral neuropathy is noted. CARDIAC: As above. History of hypertension, diabetes, and hyperlipidemia. Denies IN, congestive heart failure, chest pain, palpitations, or syncope. Severe peripheral vascular disease is noted. RESPIRATORY: Chronic tobacco use. Denies knowledge of active asthma, emphysema, or recent acute URIs. No history of tuberculosis. GI: Dyspepsia is managed with use of famotidine. No history of hepatitis, jaundice, gallbladder disease, melena, or hematochezia. Bowel movements are regular. : Notes increased urinary frequency. No incontinence. No hematuria, flank pain, or dysuria. Chronic renal failure is noted. MUSCULOSKELETAL: As above. PHYSICAL EXAMINATION: GENERAL: Appearance is that of a fatigued adult male appearing older than stated age. VITAL SIGNS: Temperature 98.8, pulse 102, respiratory rate 18, blood pressure 185/86 with O2 sats of 97% on room air. HEENT: Hearing is intact. Pupils equal and reactive. Sclerae anicteric. No nasal congestion. No oropharyngeal lesions. NECK: Brisk carotid pulses. No bruits or stridor. LUNGS: Mild expiratory rhonchi, non-tachypneic. No wheezes or rales. HEART: Regular. Borderline tachycardic. No murmurs or gallops noted. ABDOMEN: Obese, soft, nontender, and nondistended. No obvious organomegaly. EXTREMITIES: Status post left leg amputation. Right leg reveals ruborous changes in the distal leg with superficial skin sloughing. He notes warmth and burning pain at the mid to distal right . Previous amputations of the 2nd and 3rd toes. Chronic venous stasis changes of the right foot and leg. LABORATORY DATA: On admission; WBC 9.2, hemoglobin 10.6, platelet count 234,000 with 79 segs, 12 lymphocytes, 8 monocytes. Sodium 135, potassium 5.2, BUN chronically elevated now at 52, creatinine 3.4, GFR 19, glucose 162 in nonfasting state. Lactic acid 1.2, calcium 7.9, AST 34, alkaline phosphatase 113. C-reactive protein is high at 7.38, procalcitonin 0.4. Urinalysis: Specific gravity 1.020, protein greater than 300, positive glucosuria, positive trace leukocyte esterase, 5-10 rbc's, semi-packed wbc's, many bacteria noted, with urine and blood cultures pending. IMPRESSIONS: 1. Bacteria and pyuria are indicative of early urinary tract infection. 2. Suspected developing cellulitis of the right leg with rubor and increasing pain. 3. History of severe peripheral vascular disease, status post left leg amputation with chronic circulatory impairment of the right leg and amputation of the 2nd and 3rd toes. 4. Thirty-year history of type 2 diabetes with insulin dependence. 5. Hypertension. 6. Hyperlipidemia. 7. Chronic renal failure with acute exacerbation secondary to acute illness. 8. Ongoing tobacco use. 9. Reported history of heavy alcohol use, now abstaining. PLAN: It had been anticipated that the patient would be triaged to a tertiary care center for care by hospitalist, Infectious Disease, and Renal Services; however, severe weather in the [facility] area prevents transfer. He will therefore be admitted for supportive cares with IV fluids, IV Levaquin, as well as vancomycin as a single dose administered for potential early cellulitis. We will request surgical review and assistance in management of right leg ulcers. Followup BMP to monitor renal function is requested. If renal function fails to show improvement, he will be transferred to Nephrology Services when the weather clears. We will continue to provide supportive cares. Note, full code status, consistent carb diet, and assistance with transfer will be provided for the patient in light of significant right leg pain. Oxycodone on a short-term basis to be offered for pain management. We will provide warm moist heat to right leg if tolerated as well. Julio Ryder MD /[id number]
[2019-03-09] MEDS: Acetaminophen 325 MG Tab PO PRN ×2 (04:13→09:07)
[2019-03-09] MEDS ORDERED: Baclofen 10 MG Tab PO SCH ×2 (04:30)
[2019-03-09] MEDS ORDERED: Sodium Polystyrene Sulfonate 15 GM/60 ML Susp 60 ML Bot PO ONE (05:43)
[2019-03-09] MEDS: Sodium Chloride 0.9% 1,000 ML IV SCH ×2 (06:10→08:47)
--- NOTE | 2019-03-09 06:46 | PN ---
DATE OF SERVICE: 03/09/2019 SUBJECTIVE: A 58-year-old diabetic male with history of severe peripheral vascular disease, was admitted with weakness and developing right leg pain suggesting early cellulitis as well as accompanying bacteria and pyuria. Through the nighttime, he has had some general right leg discomfort as well as transient fever, managed with the use of acetaminophen. He denies shortness of breath. Resting comfortably. Has been eating well. Denies abdominal pain, nausea or emesis. No chills reported. Oxycodone is provided on a p.r.n. basis for pain. OBJECTIVE: VITAL SIGNS: Temperature now 37.7; blood pressure 213/83; heart rate sinus tachycardia at 126; respiratory rate 20 with O2 saturation 92% on room air, responding to supplemental oxygen. LUNGS: Mild expiratory rhonchi. HEART: Tachycardic without murmurs or gallops. ABDOMEN: Soft, nontender, nondistended. EXTREMITIES: Right leg sensitivity, general inflammatory changes at the distal foreleg, some weeping is noted. LABORATORY DATA: Followup labs today show a rising potassium at 6.0, sodium 138, BUN remains elevated at 51, creatinine 3.4 with GFR of 19, glucose 140. IMPRESSION AND PLAN: 1. Right leg cellulitis. In addition to Levaquin provided in the ER setting, IV vancomycin as a loading dose was administered during the nighttime hours. Pharmacy will assist in calculating vancomycin kinetics and dosing schedule. Continue with warm packs of the leg as well as oxycodone administered orally p.r.n. for general discomfort, acetaminophen for earlier fever has shown response with reduction in temperature. 2. Pyuria and bacteria, currently on antibiotic therapy with blood and urine cultures pending. 3. Hyperkalemia, developing. A single dose of oral Kayexalate will be administered this morning. In addition, IV normal saline has been requested to be run by infusion. Followup potassium level in 5 hours' time to be obtained. 4. Chronic renal insufficiency with acute exacerbation, unchanging. If condition deteriorates, consider transfer to a tertiary care center in [place] when weather allows for safe transportation. 5. Type 2 diabetes. Blood sugars acceptable at 140. B.i.d. glucose checks have been ordered with his usual daily Lantus insulin. 6. Peripheral vascular disease, unchanging. No new orders. Julio Ryder MD /[id number]
[2019-03-09] MEDS ORDERED: amLODIPine 10 MG Tab PO SCH (09:00)
[2019-03-09] MEDS ORDERED: Clopidogrel 75 MG Tab PO SCH (09:00)
[2019-03-09] MEDS ORDERED: atorvaSTATin 20 MG Tab PO SCH (09:00)
[2019-03-09] MEDS ORDERED: Aspirin 81 MG Tab.Chew PO SCH (09:00)
[2019-03-09] MEDS ORDERED: Carvedilol 12.5 MG Tab PO SCH (09:00)
[2019-03-09] MEDS ORDERED: Lactobacillus Rhamnosus GG (Probiotic) Cap PO SCH (09:00)
[2019-03-09] MEDS ORDERED: Losartan 50 MG Tab PO SCH (09:00)
[2019-03-09] MEDS ORDERED: Famotidine 20 MG Tab PO SCH (09:00)
[2019-03-09] MEDS ORDERED: Escitalopram 10 MG Tab PO SCH (09:00)
[2019-03-09 11:59] VITALS: BP 112/54; PULSE 120
--- NOTE | 2019-03-09 19:40 | DISCH ---
REASON FOR ADMISSION: A 58-year-old male has a history of chronic health problems including type 2 diabetes, hypertension, hyperlipidemia, chronic renal insufficiency, and peripheral vascular disease with left leg amputation. He was admitted with complaints of developing chills, weakness, increased pain in the right leg and increased urinary frequency. He denied definitive fever. No abdominal pain, nausea, or vomiting noted. PHYSICAL EXAMINATION: VITAL SIGNS: On admission, temperature 98.8, pulse 102, respiratory rate 18, blood pressure 185/86, O2 sats 97% on room air. HEENT AND NECK: Noncontributory. Brisk carotid pulses. No stridor. LUNGS: Mild expiratory rhonchi in this chronically smoking male. No wheezes or rales heard. HEART: Regular. Borderline tachycardic. No murmurs or gallops. ABDOMEN: Soft, nontender. No organomegaly. No CVA pain. EXTREMITIES: Previous left lower extremity amputation. Stump was intact. He had evidence of prior amputation of the right 2nd and 3rd toes with chronic ischemic and venous stasis changes of legs with warmth, rubor, and tenderness of the right distal leg. LABORATORY DATA: On admission; WBC 9.2, hemoglobin 10.6, platelet count 234,000, 79 segs, 12 lymphocytes. Sodium 135, potassium 5.2, BUN elevated at 52, creatinine 3.4, GFR depressed at 19, glucose 162. Lactic acid 1.2, alkaline phosphatase 113, AST 34, C-reactive protein 7.38. Urinalysis: Specific gravity 1.020 with positive proteinuria and glucosuria as well as leukocyte esterase, 5-10 rbc's, semi-packed with wbc's, and many bacteria. HOSPITAL COURSE: Jose was admitted with suspected cellulitis of the right leg, urinary tract infection, and chronic renal insufficiency with acute exacerbation with rising creatinine and depressed GFR. He was cultured with urine and blood cultures, pending at this time. He was begun on broad-spectrum antibiotics with IV Levaquin and vancomycin. Continued use of his standard home medications including single daily dose Lantus was provided, oxycodone was provided for leg pain. The following morning, he had ongoing pain, transient fever during the night, responded to administration of acetaminophen. Labs showed sodium of 138, potassium rising to 6.0 with BUN of 51, creatinine unchanged at 3.4, and GFR of 19. Glucose was mildly elevated at 140 mg%. He received Kayexalate for his progressive hyperkalemia. With ongoing leg pain, recurrent fevers, and exacerbation of chronic renal insufficiency, it was felt that especially services in care by Nephrology and Infectious Disease in a tertiary care center would be warranted. Therefore, [facility] in [place], [place] was contacted. The Hospitalist Service agreed to accept the patient with transfer by ground ambulance. Plans for discharge transfer are made. DISCHARGE INSTRUCTIONS: 1. Discharge and transfer by [facility] to the Hospitalist Service at [facility] on 03/09/2019. 2. Continue with diabetic diet. 3. Medications held en route to [place]. ADMITTING DIAGNOSES: 1. Bacteria and pyuria, indicative of urinary tract infection. 2. Cellulitis of the right leg with rubor and increasing pain. 3. Severe peripheral vascular disease, status post left leg amputation with previous right 2nd and 3rd toe amputations. 4. Type 2 diabetes with insulin dependence. 5. Hypertension. 6. Hyperlipidemia. 7. Chronic renal failure with acute exacerbation. 8. Ongoing tobacco use. 9. History of heavy alcohol use, now abstaining. DISCHARGE DIAGNOSES: 1. Bacteria and pyuria, indicative of urinary tract infection. 2. Cellulitis of the right leg with rubor and increasing pain. 3. Severe peripheral vascular disease, status post left leg amputation with previous right 2nd and 3rd toe amputations. 4. Type 2 diabetes with insulin dependence. 5. Hypertension. 6. Hyperlipidemia. 7. Chronic renal failure with acute exacerbation. 8. Ongoing tobacco use. 9. History of heavy alcohol use, now abstaining. 10.Hyperkalemia. 11.History of obstructive sleep apnea without support of CPAP therapy.
[2019-03-09] MEDS ORDERED: Levofloxacin/Dextrose 5%-Water 250 MG in Premix Bag 1 BAG IV SCH (20:00)
[2019-03-09] MEDS ORDERED: Insulin Glargine,Human Rec. Analog 100 Units/ML 3 ML Pen SUBCUT SCH (21:00)
== END 2019-03-09 10:50 | DRG 603 ==
LOC: JP.ED 16:47 → JP.ICU 22:17
PROVIDERS: ADMIT Family Medicine; ATTEND Family Medicine
DX: L03.115 Cellulitis of right lower limb (principal); R31.9 Hematuria, unspecified; R53.1 Weakness; M79.604 Pain in right leg; N39.0 Urinary tract infection, site not specified; N18.4 Chronic kidney disease, stage 4 (severe); E11.51 Type 2 diabetes mellitus with diabetic peripheral angiopathy without gangrene; E11.42 Type 2 diabetes mellitus with diabetic polyneuropathy; I12.9 Hypertensive chronic kidney disease with stage 1 through stage 4 chronic kidney disease, or unspecified chronic kidney disease; E78.5 Hyperlipidemia, unspecified; E78.00 Pure hypercholesterolemia, unspecified; K21.9 Gastro-esophageal reflux disease without esophagitis; K52.9 Noninfective gastroenteritis and colitis, unspecified; F17.210 Nicotine dependence, cigarettes, uncomplicated; J30.9 Allergic rhinitis, unspecified; Z79.02 Long term (current) use of antithrombotics/antiplatelets; H54.7 Unspecified visual loss; Z79.899 Other long term (current) drug therapy; Z89.512 Acquired absence of left leg below knee; M19.91 Primary osteoarthritis, unspecified site; E11.40 Type 2 diabetes mellitus with diabetic neuropathy, unspecified; F32.9 Major depressive disorder, single episode, unspecified; E66.9 Obesity, unspecified; E87.5 Hyperkalemia; E11.22 Type 2 diabetes mellitus with diabetic chronic kidney disease; Z86.73 Personal history of transient ischemic attack (TIA), and cerebral infarction without residual deficits; Z89.612 Acquired absence of left leg above knee; Z90.49 Acquired absence of other specified parts of digestive tract; Z79.4 Long term (current) use of insulin; Z87.891 Personal history of nicotine dependence; Z88.0 Allergy status to penicillin; Z88.1 Allergy status to other antibiotic agents; Z79.82 Long term (current) use of aspirin; Z68.39 Body mass index [BMI] 39.0-39.9, adult
CPT/HCPCS: 36415; 51702; 80053; 81001; 83605; 84145; 85025; 86140; 87040 ×2; 87086; 96361; 96365; 96375; 99284; J1956; J3010; J7120; 80048; 84132; A9270-GY; J1815-GY; J3370; J7030; J7040

== ENCOUNTER 2019-03-27 14:57 | Emergency (ER) | payer BC, MEDICARE ==
[2019-03-27 15:09] VITALS: BP 146/71; PULSE 81
--- NOTE | 2019-03-27 15:30 | EDM.PDOC ---
ED HPI GENERAL MEDICAL PROBLEM - General Chief Complaint: Respiratory Problem Stated Complaint: MEDICAL VIA [place]TH Time Seen by Provider: 03/27/19 15:10 Source of Information: Reports: Patient, EMS History Limitations: Reports: No Limitations - History of Present Illness INITIAL COMMENTS - FREE TEXT/NARRATIVE: 58-year-old male brought in from the half-way by ambulance because he developed shortness of breath with transferring from the chair to the bed after physical therapy. Seems to have improved. No fevers or chills. Is also having significant right leg pain which is not new. Onset: Unknown/Unsure Worsens with: Reports: Movement Associated Symptoms: Reports: Cough, Shortness of Breath. Denies: Confusion, Chest Pain, Headaches - Related Data Allergies Allergy/AdvReac Type Severity Reaction Status Date / Time atenolol [From Tenormin] Allergy Cannot Verified 03/08/19 22:53 Remember cephalexin monohydrate Allergy Hives Verified 03/08/19 22:53 [From Keflex] lisinopril [From Zestril] Allergy Cannot Verified 03/08/19 22:53 Remember penicillin V potassium Allergy Hives Verified 03/08/19 22:53 [From Pen-Vee K] Home Meds: Home Meds Escitalopram [Lexapro] 10 mg PO DAILY 09/19/14 [History] amLODIPine Besylate [Amlodipine Besylate] 10 mg PO DAILY 09/19/14 [History] Clopidogrel [Plavix] 75 mg PO DAILY 11/03/15 [History] atorvaSTATin [Lipitor] 40 mg PO DAILY 11/03/15 [History] Famotidine [Pepcid] 20 mg PO DAILY 12/25/16 [History] Aspirin [Children's Aspirin] 81 mg PO DAILY 09/10/18 [History] Acetaminophen 500 mg PO QID 03/27/19 [History] Carvedilol [Coreg] 25 mg PO BID 03/27/19 [History] Cyclobenzaprine HCl 5 mg PO Q8HR 03/27/19 [History] Ferrous Sulfate [Iron] 325 mg PO BID 03/27/19 [History] Nicotine [Nicotine Patch] 21 mg TD DAILY 03/27/19 [History] Nystatin 15 gm TP BID 03/27/19 [History] Polyethylene Glycol 3350 [Clearlax] 1 dose PO DAILY 03/27/19 [History] Sodium Bicarbonate 650 mg PO QID 03/27/19 [History] Tamsulosin [Tamsulosin 24 Hr] 0.4 mg PO DAILY 03/27/19 [History] hydrALAZINE [Apresoline] 25 mg PO TID 03/27/19 [History] oxyCODONE 5 mg PO Q8HR 03/27/19 [History] Past Medical History HEENT History: Reports: Allergic Rhinitis, Impaired Vision Cardiovascular History: Reports: High Cholesterol, Hypertension, PVD Other Cardiovascular History: angiogram Respiratory History: Reports: Sleep Apnea Gastrointestinal History: Reports: Chronic Diarrhea, GERD Other Gastrointestinal History: due to antx therapy Genitourinary History: Reports: Acute Renal Failure, Chronic Renal Insuffiency, UTI, Recurrent Musculoskeletal History: Reports: Fracture, Osteoarthritis Neurological History: Reports: CVA, Neuropathy, Diabetic Psychiatric History: Reports: Depression Endocrine/Metabolic History: Reports: Diabetes, Type II, Obesity/BMI 30+ Hematologic History: Reports: None Immunologic History: Reports: None Oncologic (Cancer) History: Reports: None Dermatologic History: Reports: None Other Dermatologic History: toe amp rash from sun - Infectious Disease History Infectious Disease History: Reports: Chicken Pox - Past Surgical History Head Surgeries/Procedures: Reports: None HEENT Surgical History: Reports: None Cardiovascular Surgical History: Reports: Vascular Surgery Other Cardiovascular Surgeries/Procedures: vein surgery in leg Respiratory Surgical History: Reports: None GI Surgical History: Reports: Appendectomy Neurological Surgical History: Reports: None Musculoskeletal Surgical History: Reports: Amputation Other Musculoskeletal Surgeries/Procedures:: right foot 2nd and 3rd toe amp. 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 Dermatological Surgical History: Reports: Skin Graft Social & Family History - Family History Family Medical History: Noncontributory - Tobacco Use Smoking Status *Q: Former Smoker Years of Tobacco use: 37 Used Tobacco, but Quit: Yes Month/Year Tobacco Last Used: 3 days - Caffeine Use Caffeine Use: Reports: None ED ROS GENERAL - Review of Systems Review Of Systems: See Below Constitutional: Reports: Malaise. Denies: Fever, Chills HEENT: Reports: No Symptoms Respiratory: Reports: Shortness of Breath, Cough Cardiovascular: Denies: Chest Pain, Palpitations GI/Abdominal: Denies: Nausea, Vomiting Skin: Reports: Pallor Neurological: Reports: Dizziness, Weakness. Denies: Headache ED EXAM, GENERAL - Physical Exam Exam: See Below Exam Limited By: No Limitations General Appearance: Alert, No Apparent Distress Eye Exam: Bilateral Eye: Other (Bilateral conjunctival pallor) Head: Atraumatic Respiratory/Chest: No Respiratory Distress, Lungs Clear Cardiovascular: Regular Rate, Rhythm. No: Tachycardia GI/Abdominal: Non-Tender Neurological: Alert, Oriented Psychiatric: Normal Affect, Normal Mood Skin Exam: Warm, Dry, Pallor Course - Vital Signs Last Recorded V/S: Last Vital Signs Temp 98 F 03/27/19 15:01 Pulse 81 03/27/19 15:01 Resp 19 03/27/19 15:01 BP 146/71 H 03/27/19 15:01 Pulse Ox 99 03/27/19 15:01 - Orders/Labs/Meds Labs: Laboratory Tests 03/27/19 03/27/19 Range/Units 15:37 15:37 WBC 8.1 (4.5-11.0) K/uL RBC 3.34 L (4.30-5.90) M/uL Hgb 8.6 L (12.0-15.0) g/dL Hct 28.1 L (40.0-54.0) % MCV 84 (80-98) fL MCH 26 L (27-31) pg MCHC 31 L (32-36) % Plt Count 229 (150-400) K/uL Neut % (Auto) 71 H (36-66) % Lymph % (Auto) 20 L (24-44) % [place] % (Auto) 8 H (2-6) % Eos % (Auto) 1 L (2-4) % Baso % (Auto) 1 (0-1) % Sodium 139 L (140-148) mmol/L Potassium 5.2 (3.6-5.2) mmol/L Chloride 107 (100-108) mmol/L Carbon Dioxide 24 (21-32) mmol/L Anion Gap 13.2 (5.0-14.0) mmol/L BUN 50 H (7-18) mg/dL Creatinine 3.7 H* (0.8-1.3) mg/dL Est Cr Clr Drug Dosing 22.29 mL/min Estimated GFR (MDRD) 17 L (>60) Glucose 89 (74-106) mg/dL Calcium 7.5 L (8.5-10.1) mg/dL - Re-Assessments/Exams Free Text/Narrative Re-Assessment/Exam: 03/27/19 16:12 Patient's oxygen was removed, over the next 45 minutes without oxygen his O2 saturations remained in the high 90s and normal. He did not redevelop shortness of breath. A 1 view chest x-ray showed slight increased vascular congestion but no significant infiltrate or pleural effusions. Kidney function is still poor, creatinine is 3.7 with GFR 19. These are only slightly worse than his discharge levels on the . His hemoglobin has dropped under 9 to 8.6. He has not had any spontaneous bleeding, bloody noses, hematuria or bleeding from his extremities. Denies any dark stools. If his shortness of breath continues over the next 3-6 days his hemoglobin can be reexamined. 03/27/19 16:24 Hemoglobin levels were discussed with the hospitalist service, along with his ongoing renal failure. It was felt he was stable enough to return to the half-way and have a recheck of his hemoglobin in 3 days. He can return sooner if significant shortness of breath or other concerns Departure - Departure Time of Disposition: 16:56 Disposition: DC/Tfer to [facility] Clinical Impression: Dyspnea on exertion, Anemia, chronic disease Renal failure Qualifiers: Renal failure chronicity: acute on chronic Chronic kidney disease stage: stage 4 (severe) - Discharge Information Instructions: Shortness of Breath, Adult, [id number] Referrals: PCP,None [Primary Care Provider] - Forms: ED Department Discharge Care Plan Goals: Continue your regular routine and medications, and you will have the labs redrawn on Monday which will be reported to the hospitalist service. Return if significantly worsening or you develop other concerns.
--- NOTE | 2019-03-27 16:26 | CRLCR ---
Indication: Shortness of breath. Technique: AP portable views of the chest were obtained. Comparison: None Findings: The heart is normal in size. The lungs are clear. No infiltrate, pleural effusion, or pneumothorax is identified. Impression: No acute cardiopulmonary process. Dictated by Candice Cotton MD @ Mar 27 2019 4:13PM Signed by Dr. Candice Cotton @ Mar 27 2019 4:25PM
== END 2019-03-27 16:55 ==
LOC: JP.ED 14:57
DX: R06.02 Shortness of breath (principal); D64.9 Anemia, unspecified; E11.40 Type 2 diabetes mellitus with diabetic neuropathy, unspecified; E11.22 Type 2 diabetes mellitus with diabetic chronic kidney disease; I12.9 Hypertensive chronic kidney disease with stage 1 through stage 4 chronic kidney disease, or unspecified chronic kidney disease; N18.4 Chronic kidney disease, stage 4 (severe); E78.00 Pure hypercholesterolemia, unspecified; F32.9 Major depressive disorder, single episode, unspecified; E66.9 Obesity, unspecified; Z88.8 Allergy status to other drugs, medicaments and biological substances; Z88.1 Allergy status to other antibiotic agents; Z88.0 Allergy status to penicillin; Z86.73 Personal history of transient ischemic attack (TIA), and cerebral infarction without residual deficits; Z79.82 Long term (current) use of aspirin; Z68.35 Body mass index [BMI] 35.0-35.9, adult; Z87.891 Personal history of nicotine dependence; Z89.512 Acquired absence of left leg below knee
CPT/HCPCS: 36415; 71045; 80048; 85025; 99285-25

== ENCOUNTER 2020-11-24 13:59 | Emergency (ER) | payer MEDICARE, MEDICAID ==
--- NOTE | 2020-11-24 15:42 | EDM.PDOC ---
ED HPI GENERAL MEDICAL PROBLEM - General Chief Complaint: Lower Extremity Injury/Pain Stated Complaint: HEADACHE LAST THREE DAYS, SORE RT LEG Time Seen by Provider: 11/24/20 15:10 Source of Information: Reports: Patient, Family History Limitations: Reports: No Limitations - History of Present Illness INITIAL COMMENTS - FREE TEXT/NARRATIVE: 60 year old male with diabetes and renal failure, on peritoneal dialysis presents with increased swelling of his right lower extremity and intermittent right neck discomfort for the past 3 days. He has chronic lower extremity edema but the swelling is been more persistent and more tense the last several days and someone mentioned he may have a blood clot in his leg. He is not on anticoagulants. He has some increased pain in the popliteal area as well, and a chronic vascular insufficiency changes of the skin. He is above the knee amputee on the left side. He is wheelchair dependent. Onset: Gradual (Increased swelling the last 3 to 4 days) Associated Symptoms: Reports: Other (Mild right neck discomfort especially with movement). Denies: Fever/Chills, Malaise, Nausea/Vomiting, Shortness of Breath Right Leg Pain Score (Numeric/FACES): 6 - Related Data Allergies Allergy/AdvReac Type Severity Reaction Status Date / Time cephalexin monohydrate Allergy Intermediate Hives Verified 11/24/20 14:43 [From Keflex] penicillin V potassium Allergy Intermediate Hives Verified 11/24/20 14:43 [From Pen-Vee K] atenolol [From Tenormin] Allergy Mild Cannot Verified 11/24/20 14:43 Remember lisinopril [From Zestril] Allergy Mild Cannot Verified 11/24/20 14:43 Remember Home Meds: Home Meds Escitalopram [Lexapro] 10 mg PO DAILY 09/19/14 [History] amLODIPine Besylate [Amlodipine Besylate] 10 mg PO DAILY 09/19/14 [History] Clopidogrel [Plavix] 75 mg PO DAILY 11/03/15 [History] atorvaSTATin [Lipitor] 40 mg PO BEDTIME 11/03/15 [History] Famotidine [Pepcid] 20 mg PO DAILY 12/25/16 [History] Aspirin [Children's Aspirin] 81 mg PO DAILY 09/10/18 [History] Acetaminophen 500 mg PO QID 03/27/19 [History] Cyclobenzaprine HCl 5 mg PO Q8HR PRN 03/27/19 [History] Ferrous Sulfate [Iron] 325 mg PO BID 03/27/19 [History] Nystatin 15 gm TP BID PRN 03/27/19 [History] Tamsulosin [Flomax] 0.4 mg PO BID 03/27/19 [History] carvediloL [Coreg] 25 mg PO BID 03/27/19 [History] hydrALAZINE [Apresoline] 25 mg PO TID 03/27/19 [History] polyethylene glycoL 3350 [Clearlax] 1 dose PO DAILY PRN 03/27/19 [History] Magnesium Chloride [Mag Delay] 64 mg PO BID 04/11/19 [History] Furosemide 80 mg PO DAILY #30 tablet 04/14/19 [Rx] Bumetanide 2 mg PO BID 11/24/20 [History] Calcium Acetate 667 mg PO DAILY 11/24/20 [History] glipiZIDE [Glucotrol XL] 5 mg PO DAILY 11/24/20 [History] Past Medical History HEENT History: Reports: Allergic Rhinitis, Impaired Vision Cardiovascular History: Reports: High Cholesterol, Hypertension, PVD Other Cardiovascular History: angiogram Respiratory History: Reports: Sleep Apnea, SOB Gastrointestinal History: Reports: Chronic Diarrhea, GERD Other Gastrointestinal History: due to antx therapy Genitourinary History: Reports: Acute Renal Failure, Chronic Renal Insuffiency, Dialysis, Peritoneal, UTI, Recurrent Other Genitourinary History: dialysis 1 year Musculoskeletal History: Reports: Fracture, Osteoarthritis Neurological History: Reports: CVA, Neuropathy, Diabetic Psychiatric History: Reports: Depression Endocrine/Metabolic History: Reports: Diabetes, Type II, Obesity/BMI 30+ Hematologic History: Reports: None Immunologic History: Reports: None Oncologic (Cancer) History: Reports: None Dermatologic History: Reports: None Other Dermatologic History: toe amp rash from sun - Infectious Disease History Infectious Disease History: Reports: Chicken Pox Other Infectious Disease History: covid vacc - Past Surgical History Head Surgeries/Procedures: Reports: None HEENT Surgical History: Reports: None Cardiovascular Surgical History: Reports: Vascular Surgery Other Cardiovascular Surgeries/Procedures: vein surgery in leg Respiratory Surgical History: Reports: None Other Respiratory Surgeries/Procedures: new shortness of breath. GI Surgical History: Reports: Appendectomy Male Surgical History: Reports: Other (See Below) Other Male Surgeries/Procedures: Cystoscopy Neurological Surgical History: Reports: None Musculoskeletal Surgical History: Reports: Amputation Other Musculoskeletal Surgeries/Procedures:: right foot 2nd and 3rd toe amp. 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 Oncologic Surgical History: Reports: None Dermatological Surgical History: Reports: Skin Graft Social & Family History - Family History Family Medical History: No Pertinent Family History - Tobacco Use Tobacco Use Status *Q: Current Every Day Tobacco User Years of Tobacco use: 47 Packs/Tins Daily: 0.5 - Caffeine Use Caffeine Use: Reports: Soda - Recreational Drug Use Recreational Drug Use: No ED ROS GENERAL - Review of Systems Review Of Systems: See Below Constitutional: Denies: Fever, Chills, Malaise HEENT: Denies: Vision Change Respiratory: Denies: Shortness of Breath Cardiovascular: Denies: Chest Pain GI/Abdominal: Denies: Nausea, Vomiting Skin: Reports: Erythema (Slight increased erythema of the right lower extremity compared to chronic changes) Neurological: Reports: No Symptoms ED EXAM, GENERAL - Physical Exam Exam: See Below Exam Limited By: No Limitations General Appearance: Alert, No Apparent Distress Head: Atraumatic Neck: Supple, Other (Patient does have some mild discomfort to palpation along the right paracervical muscles, no significant pain with rotation against resistance) Respiratory/Chest: No Respiratory Distress, Lungs Clear Cardiovascular: Regular Rate, Rhythm Extremities: Other (Patient does have tense edema of the right lower extremity starting mid thigh, through the popliteal area and into the ankle. He has darkened skin and discoloration from chronic venous stasis changes, it is not warm or significantly tender) Neurological: Alert, Oriented Course - Vital Signs Last Recorded V/S: Last Vital Signs Temp 97.8 F 11/24/20 15:01 Pulse 78 11/24/20 16:00 Resp 16 11/24/20 16:00 BP 120/60 11/24/20 16:00 Pulse Ox 95 11/24/20 16:00 - Re-Assessments/Exams Free Text/Narrative Re-Assessment/Exam: 11/25/20 18:15 An ultrasound of the right leg was performed and was negative for DVT. Patient was encouraged to wrap the leg with Semaj wraps over the next few days and elevate if able. Neck pain should resolve, just a mild strain of the right paracervical muscles. He will continue his regular medications and recheck if he develops concerns. Departure - Departure Time of Disposition: 16:53 Disposition: Home, Self-Care 01 Clinical Impression: Peripheral edema Renal failure, chronic Qualifiers: Chronic kidney disease stage: stage 5 Qualified Code(s): N18.5 - Chronic kidney disease, stage 5 Cervical strain, acute Qualifiers: Encounter type: initial encounter Qualified Code(s): S16.1XXA - Strain of muscle, fascia and tendon at neck level, initial encounter - Discharge Information Instructions: Peripheral Edema Referrals: [place] [Primary Care Provider] - Forms: ED Department Discharge, ED Department Discharge Care Plan Goals: Try wrapping and elevating her right leg for a few days, and continue activity as tolerated. Avoid extra sodium in your diet. Recheck your neck if not improving after another 4 to 7 days. Otherwise continue your regular medications. Sepsis Event Note (ED) - Evaluation Sepsis Screening Result: No Definite Risk
[2020-11-24 16:00] VITALS: BP 120/60; PULSE 78
--- NOTE | 2020-11-25 09:04 | US ---
VL Duplex Lwr Ext Veins Ltd Rt INDICATION: swelling, pain FINDINGS: Ultrasound examination of the lower extremity using Doppler and compressive technique demonstrates that the common femoral, femoral, and popliteal veins are patent, and negative for thrombus. The calf veins were segmentally visualized and are negative where seen. IMPRESSION: Negative for deep venous thrombosis.
== END 2020-11-24 16:53 | disposition home or self-care (01) ==
LOC: JP.ED 13:59
DX: S16.1XXA Strain of muscle, fascia and tendon at neck level, initial encounter (principal); R60.0 Localized edema; E11.22 Type 2 diabetes mellitus with diabetic chronic kidney disease; I12.0 Hypertensive chronic kidney disease with stage 5 chronic kidney disease or end stage renal disease; N18.6 End stage renal disease; E66.9 Obesity, unspecified; Z72.0 Tobacco use; Z79.82 Long term (current) use of aspirin; Z79.899 Other long term (current) drug therapy; Z68.39 Body mass index [BMI] 39.0-39.9, adult; Z88.0 Allergy status to penicillin; Z88.1 Allergy status to other antibiotic agents; Z88.8 Allergy status to other drugs, medicaments and biological substances; Z79.02 Long term (current) use of antithrombotics/antiplatelets; X58.XXXA Exposure to other specified factors, initial encounter
CPT/HCPCS: 93971-26; 93971-RT; 99282; 99284-25

== ENCOUNTER 2020-12-04 11:06 | Emergency (ER) | payer MEDICARE, MEDICAID ==
[2020-12-04] MEDS ORDERED: Sodium Chloride 0.9% 10 ML Syringe FLUSH PRN (11:57)
--- NOTE | 2020-12-04 12:00 | EDM.PDOC ---
ED HPI GENERAL MEDICAL PROBLEM - General Chief Complaint: Respiratory Problem Stated Complaint: POSSIBLE PNEUMONIA Time Seen by Provider: 12/04/20 11:40 Source of Information: Reports: Patient, RN Notes Reviewed History Limitations: Reports: No Limitations - History of Present Illness INITIAL COMMENTS - FREE TEXT/NARRATIVE: Jose presents today for complaints of cough and chest congestion for three days. He denies production of mucus. He reports he feels SOB with his cough, he has had chills off and on last night and had some night sweats. He states he telephoned the ambulance last night and he had a blood sugar in the 40s. He states his blood sugar got better and he stayed home. He denies change in bowel/bladder, dizziness, fever. Bentley and Bentley vaccination on 08/10/2020 Jose did not take any of his morning medications today including furosemide and bumex. Jose reports use of oxygen at home, 2L per NC. Chest Pain Score (Numeric/FACES): 8 - Related Data Allergies Allergy/AdvReac Type Severity Reaction Status Date / Time cephalexin monohydrate Allergy Intermediate Hives Verified 12/04/20 11:38 [From Keflex] penicillin V potassium Allergy Intermediate Hives Verified 12/04/20 11:38 [From Pen-Vee K] atenolol [From Tenormin] Allergy Mild Cannot Verified 12/04/20 11:38 Remember lisinopril [From Zestril] Allergy Mild Cannot Verified 12/04/20 11:38 Remember Home Meds: Home Meds Escitalopram [Lexapro] 10 mg PO DAILY 09/19/14 [History] amLODIPine Besylate [Amlodipine Besylate] 10 mg PO DAILY 09/19/14 [History] Clopidogrel [Plavix] 75 mg PO DAILY 11/03/15 [History] atorvaSTATin [Lipitor] 40 mg PO BEDTIME 11/03/15 [History] Famotidine [Pepcid] 20 mg PO DAILY 12/25/16 [History] Aspirin [Children's Aspirin] 81 mg PO DAILY 09/10/18 [History] Acetaminophen 500 mg PO QID 03/27/19 [History] Cyclobenzaprine HCl 5 mg PO Q8HR PRN 03/27/19 [History] Ferrous Sulfate [Iron] 325 mg PO BID 03/27/19 [History] Nystatin 15 gm TP BID PRN 03/27/19 [History] Tamsulosin [Flomax] 0.4 mg PO BID 03/27/19 [History] carvediloL [Coreg] 25 mg PO BID 03/27/19 [History] hydrALAZINE [Apresoline] 25 mg PO TID 03/27/19 [History] polyethylene glycoL 3350 [Clearlax] 1 dose PO DAILY PRN 03/27/19 [History] Magnesium Chloride [Mag Delay] 64 mg PO BID 04/11/19 [History] Furosemide 80 mg PO DAILY #30 tablet 04/14/19 [Rx] Bumetanide 2 mg PO BID 11/24/20 [History] Calcium Acetate 667 mg PO DAILY 11/24/20 [History] glipiZIDE [Glucotrol XL] 5 mg PO DAILY 11/24/20 [History] Past Medical History HEENT History: Reports: Allergic Rhinitis, Impaired Vision Cardiovascular History: Reports: High Cholesterol, Hypertension, PVD Other Cardiovascular History: angiogram Respiratory History: Reports: Sleep Apnea, SOB Gastrointestinal History: Reports: Chronic Diarrhea, GERD Other Gastrointestinal History: due to antx therapy Genitourinary History: Reports: Acute Renal Failure, Chronic Renal Insuffiency, Dialysis, Peritoneal, UTI, Recurrent Other Genitourinary History: dialysis 1 year Musculoskeletal History: Reports: Fracture, Osteoarthritis Neurological History: Reports: CVA, Neuropathy, Diabetic Psychiatric History: Reports: Depression Endocrine/Metabolic History: Reports: Diabetes, Type II, Obesity/BMI 30+ Hematologic History: Reports: None Immunologic History: Reports: None Oncologic (Cancer) History: Reports: None Dermatologic History: Reports: None Other Dermatologic History: toe amp rash from sun - Infectious Disease History Infectious Disease History: Reports: Chicken Pox Other Infectious Disease History: covid vacc - Past Surgical History Head Surgeries/Procedures: Reports: None HEENT Surgical History: Reports: None Cardiovascular Surgical History: Reports: Vascular Surgery Other Cardiovascular Surgeries/Procedures: vein surgery in leg Respiratory Surgical History: Reports: None Other Respiratory Surgeries/Procedures: new shortness of breath. GI Surgical History: Reports: Appendectomy Male Surgical History: Reports: Other (See Below) Other Male Surgeries/Procedures: Cystoscopy Neurological Surgical History: Reports: None Musculoskeletal Surgical History: Reports: Amputation Other Musculoskeletal Surgeries/Procedures:: right foot 2nd and 3rd toe amp. 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 ). Denies: Fever, Diaphoresis, Decreased Appetite, Weight Loss HEENT: Reports: No Symptoms Respiratory: Reports: Shortness of Breath, Wheezing, Cough. Denies: Sputum, Hemoptysis Cardiovascular: Reports: Dyspnea on Exertion, Edema (chronic CHF). Denies: Chest Pain, Blood Pressure Problem, Claudication, Lightheadedness, Orthopnea, Palpitations, PND, Syncope Endocrine: Reports: No Symptoms GI/Abdominal: Reports: No Symptoms : Reports: No Symptoms Musculoskeletal: Reports: No Symptoms Skin: Reports: No Symptoms Neurological: Reports: No Symptoms Psychiatric: Reports: No Symptoms Hematologic/Lymphatic: Reports: No Symptoms Immunologic: Reports: No Symptoms ED EXAM, GENERAL - Physical Exam Exam: See Below Exam Limited By: No Limitations General Appearance: Alert, WD/WN, No Apparent Distress, Other (skin pink) Eye Exam: Bilateral Eye: Normal Inspection, PERRL Ears: Normal External Exam, Normal Canal, Hearing Grossly Normal, Normal TMs Throat/Mouth: Normal Inspection, Normal Lips, Normal Gums, Normal Oropharynx, Normal Voice, No Airway Compromise Head: Atraumatic, Normocephalic Neck: Normal Inspection, Supple, Non-Tender, Full Range of Motion. No: Lymphadenopathy (R), Lymphadenopathy (L) Respiratory/Chest: No Respiratory Distress, No Accessory Muscle Use, Chest Non- Tender, Wheezing, Other (cough without mucus production). No: Respiratory Distress, Crackles, Rales, Rhonchi, Stridor, Accessory Muscle Use, Retractions, Splinting Cardiovascular: Normal Peripheral Pulses, Regular Rate, Rhythm, No Edema, No Gallop, No Rub, Other (Murmur present, below knee amputation left) Peripheral Pulses: 3+: Radial (L), Radial (R), Dorsalis Pedis (R) GI/Abdominal: Normal Bowel Sounds, Soft, Non-Tender, No Organomegaly, No Distention, No Mass, Other (obese). No: Guarding, Rigid, Rebound, Tender Back Exam: Normal Inspection, Full Range of Motion. No: CVA Tenderness (R), CVA Tenderness (L) Extremities: Normal Inspection, Normal Range of Motion, Non-Tender, Normal Capillary Refill, Other (1+ edema to RLE) Neurological: Alert, Oriented, Normal Cognition, No Motor/Sensory Deficits Psychiatric: Normal Affect, Normal Mood Skin Exam: Warm, Dry, Intact, Normal Color, No Rash Lymphatic: No Adenopathy #1 Interpretation EKG Date: 12/04/20 Time: 11:54 Rhythm: NSR Rate (Beats/Min): 81 [place]: Normal P-Wave: Present QRS: Normal ST-T: Normal QT: Normal Course - Vital Signs Last Recorded V/S: Last Vital Signs Temp 37.0 C 12/04/20 12:46 Pulse 87 12/04/20 14:32 Resp 26 H 12/04/20 14:32 BP 170/73 H 12/04/20 14:32 Pulse Ox 90 L 12/04/20 13:53 - Orders/Labs/Meds Orders: Active Orders 24 hr Category Date Time Status CULTURE RESPIRATORY + SMEAR [RM] Stat Lab 12/04/20 13:02 Ordered Isolation [COMM] Stat Oth 12/04/20 11:58 Ordered Saline Lock Insert [OM.PC] Routine Oth 12/04/20 11:57 Ordered EKG 12 Lead [EK] Routine Ther 12/04/20 11:57 Ordered Labs: Laboratory Tests 12/04/20 12/04/20 12/04/20 Range/Units 12:12 12:12 12:12 WBC 17.3 H (4.5-11.0) K/uL RBC 2.89 L (4.30-5.90) M/uL Hgb 8.1 L (12.0-15.0) g/dL Hct 25.5 L (40.0-54.0) % MCV 88 (80-98) fL MCH 28 (27-31) pg MCHC 32 (32-36) % Plt Count 126 L (150-400) K/uL Neut % (Auto) 87.6 H (36-66) % Lymph % (Auto) 4.6 L (24-44) % Wolfe % (Auto) 7.5 H (2-6) % Eos % (Auto) 0.2 L (2-4) % Baso % (Auto) 0.1 (0-1) % Sodium 135 L (140-148) mmol/L Potassium 4.6 (3.6-5.2) mmol/L Chloride 97 L (100-108) mmol/L Carbon Dioxide 26 (21-32) mmol/L Anion Gap 16.6 H (5.0-14.0) mmol/L BUN 61 H (7-18) mg/dL Creatinine 8.5 H* D (0.8-1.3) mg/dL Est Cr Clr Drug Dosing 9.47 mL/min Estimated GFR (MDRD) 6 L (>60) Glucose 106 (74-106) mg/dL Lactic Acid (0.4-2.0) mmol/L Calcium 7.6 L (8.5-10.1) mg/dL Total Bilirubin 0.5 (0.2-1.0) mg/dL AST 25 (15-37) U/L ALT 27 (12-78) U/L Alkaline Phosphatase 72 (46-116) U/L Troponin I < 0.017 (0.000-0.056) ng/mL NT-Pro-B Natriuret Pep 31928 H (5-125) pg/mL Total Protein 6.3 L (6.4-8.2) g/dL Albumin 2.7 L (3.4-5.0) g/dL Globulin 3.6 H (2.3-3.5) g/dL Albumin/Globulin Ratio 0.8 L (1.2-2.2) Procalcitonin ng/mL SARS CoV-2 RNA Rapid CHERYL 12/04/20 12/04/20 12/04/20 Range/Units 12:12 12:15 12:30 WBC (4.5-11.0) K/uL RBC (4.30-5.90) M/uL Hgb (12.0-15.0) g/dL Hct (40.0-54.0) % MCV (80-98) fL MCH (27-31) pg MCHC (32-36) % Plt Count (150-400) K/uL Neut % (Auto) (36-66) % Lymph % (Auto) (24-44) % Wolfe % (Auto) (2-6) % Eos % (Auto) (2-4) % Baso % (Auto) (0-1) % Sodium (140-148) mmol/L Potassium (3.6-5.2) mmol/L Chloride (100-108) mmol/L Carbon Dioxide (21-32) mmol/L Anion Gap (5.0-14.0) mmol/L BUN (7-18) mg/dL Creatinine (0.8-1.3) mg/dL Est Cr Clr Drug Dosing mL/min Estimated GFR (MDRD) (>60) Glucose (74-106) mg/dL Lactic Acid 0.7 (0.4-2.0) mmol/L Calcium (8.5-10.1) mg/dL Total Bilirubin (0.2-1.0) mg/dL AST (15-37) U/L ALT (12-78) U/L Alkaline Phosphatase (46-116) U/L Troponin I (0.000-0.056) ng/mL NT-Pro-B Natriuret Pep (5-125) pg/mL Total Protein (6.4-8.2) g/dL Albumin (3.4-5.0) g/dL Globulin (2.3-3.5) g/dL Albumin/Globulin Ratio (1.2-2.2) Procalcitonin 1.25 ng/mL SARS CoV-2 RNA Rapid CHERYL Negative Patient lab work reviewed, noted elevated WBC with left shift, Covid negative, elevated BNP in chronic CHF patient, noted increase of cardiomegaly per chest x- ray when compared to previous chest x-ray. We will provide bumex 2mg IV, furosemide 40mg IV, duoneb, mucinex, azithromycin 500mg PO. Meds: Medications Discontinued Medications Generic Name Dose Route Start Last Admin Trade Name Freq PRN Reason Stop Dose Admin Albuterol/Ipratropium 3 ml 12/04/20 12:38 12/04/20 12:52 Albuterol/Ipratropium 3.0-0.5 Mg/3 Ml Neb Soln NEB 12/04/20 12:39 3 ml ONETIME ONE Administration Azithromycin 500 mg 12/04/20 13:25 12/04/20 15:10 Azithromycin 250 Mg Tab PO 12/04/20 13:26 500 mg ONETIME ONE Administration Bumetanide 2 mg 12/04/20 12:43 12/04/20 13:01 Bumetanide 1 Mg/4 Ml Mdv IVPUSH 12/04/20 12:44 2 mg ONETIME ONE Administration Furosemide 40 mg 12/04/20 13:46 12/04/20 15:10 Furosemide 40 Mg/4 Ml Vial IVPUSH 12/04/20 13:47 40 mg ONETIME ONE Administration Guaifenesin 1,200 mg 12/04/20 12:57 12/04/20 13:12 Guaifenesin 600 Mg Tab.Er PO 12/04/20 12:58 1,200 mg ONETIME ONE Administration Guaifenesin/Codeine Phosphate 10 ml 12/04/20 12:29 12/04/20 12:50 Codeine/Guaifenesin 10-100 Mg/5 Ml Syrup 5 Ml Cup PO 12/04/20 12:30 10 ml ONETIME ONE Administration Sodium Chloride 10 ml 12/04/20 11:57 12/04/20 12:13 Sodium Chloride 0.9% 10 Ml Syringe FLUSH 10 ml ASDIRECTED PRN Administration Keep Vein Open - Radiology Interpretation Free Text/Narrative:: chest x-ray reviewed, wet read, noted cardiomegaly without any other acute findings. - Re-Assessments/Exams Free Text/Narrative Re-Assessment/Exam: 12/04/20 13:25 Patient resting after duoneb, reports he is feeling okay. No urination at this time. 12/04/20 14:52 Patient resting in bed, cough off and on without mucus production, alert and oriented without respiratory distress. He will be discharged to home, use of his home O2, azithromycin, mucinex. 12/04/20 15:50 Sumanth SALGADO, Jose's primary provider notified of patient status. He will have his nurse get Jose in for an appointment early next week. 12/04/20 16:21 Departure - Departure Time of Disposition: 15:24 Disposition: Home, Self-Care 01 Condition: Fair Clinical Impression: Congestive heart failure, Acute bronchiolitis - Discharge Information *PRESCRIPTION DRUG MONITORING PROGRAM REVIEWED*: Not Applicable *COPY OF PRESCRIPTION DRUG MONITORING REPORT IN PATIENT ANKITA: Not Applicable Instructions: Heart Failure, Self Care, [id number], Upper Respiratory Infection, Adult, [id number] Referrals: Sumanth Hill [facility]ILY ASSISTANT [Primary Care Provider] - Forms: ED Department Discharge Additional Instructions: You have been evaluated and treated for bronchitis and congestive heart failure. Chest X-ray showed heart is more enlarged. No acute pneumonia. COVID19 test is negative. EKG are normal. Use your oxygen per nasal cannula at 2L. You were given azithromycin 500mg PO in ER as well as bumex and lasix IV. Continue your dialysis, take all your daily medications except your oral bumex. Continue Azithromycin 500mg by mouth daily for the next 4 days - first dose given in ER. 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 You can also take mucinex to help with your cough. Follow up with your primary Sumanth SALGADO in 3 to 7 days for a recheck. Return as needed, for worsening, issues or concerns. Sepsis Event Note (ED) - Focused Exam Vital Signs: Vital Signs Temp Pulse Resp BP Pulse Ox 12/04/20 14:32 87 26 H 170/73 H 12/04/20 13:53 84 27 H 151/67 H 90 L 12/04/20 13:23 84 15 142/66 H 90 L 12/04/20 13:02 83 28 H 145/62 H 95 12/04/20 12:46 37.0 C 82 27 H 156/67 H 95 12/04/20 11:54 82 27 H 156/67 H 95 12/04/20 11:40 37.0 C 83 21 H 149/64 H 96 - My Orders Last 24 Hours: My Active Orders 12/04/20 11:57 Saline Lock Insert [OM.PC] Routine EKG 12 Lead [EK] Routine 12/04/20 11:58 Isolation [COMM] Stat 12/04/20 13:02 CULTURE RESPIRATORY + SMEAR [RM] Stat - Assessment/Plan Last 24 Hours: My Active Orders 12/04/20 11:57 Saline Lock Insert [OM.PC] Routine EKG 12 Lead [EK] Routine 12/04/20 11:58 Isolation [COMM] Stat 12/04/20 13:02 CULTURE RESPIRATORY + SMEAR [RM] Stat Assessment:: Congestive heart failure, Acute bronchiolitis Plan: Patient evaluated and treated for bronchitis and congestive heart failure. Chest X-ray showed heart is more enlarged. No acute pneumonia. COVID19 test is negative. EKG are normal. Use your oxygen per nasal cannula at 2L. You were given azithromycin 500mg PO in ER as well as bumex and lasix IV. Continue your dialysis, take all your daily medications except your oral bumex. Continue Azithromycin 500mg by mouth daily for the next 4 days - first dose given in ER. 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 You can also take mucinex to help with your cough. Follow up with your primary Sumanth SALGADO in 3 to 7 days for a recheck. Return as needed, for worsening, issues or concerns.
--- NOTE | 2020-12-04 12:23 | CR ---
CHEST: Portable 12/04/2020 at 12:19 PM CLINICAL HISTORY:Cough COMPARISON:04/11/2019 FINDINGS: The heart is mildly enlarged. Pulmonary vascularity is normal. No infiltrate effusion or pneumothorax is seen. Impression: Mild cardiomegaly No acute cardiopulmonary process.
[2020-12-04] MEDS ORDERED: Codeine/guaiFENesin 10-100 MG/5 ML Syrup 5 ML Cup PO ONE (12:29)
[2020-12-04] MEDS ORDERED: Albuterol/Ipratropium 3.0-0.5 MG/3 ML Neb Soln NEB ONE (12:38)
[2020-12-04] MEDS ORDERED: Bumetanide 1 MG/4 ML MDV IVPUSH ONE (12:43)
[2020-12-04] MEDS ORDERED: guaiFENesin 600 MG Tab.ER PO ONE (12:57)
[2020-12-04] MEDS ORDERED: Azithromycin 250 MG Tab PO ONE (13:25)
[2020-12-04] MEDS ORDERED: Furosemide 40 MG/4 ML VIAL IVPUSH ONE (13:46)
[2020-12-04 14:32] VITALS: BP 170/73; PULSE 87
== END 2020-12-04 15:56 | disposition home or self-care (01) ==
LOC: JP.ED 11:06
DX: J21.9 Acute bronchiolitis, unspecified (principal); I13.2 Hypertensive heart and chronic kidney disease with heart failure and with stage 5 chronic kidney disease, or end stage renal disease; E11.22 Type 2 diabetes mellitus with diabetic chronic kidney disease; N18.6 End stage renal disease; I50.9 Heart failure, unspecified; E78.00 Pure hypercholesterolemia, unspecified; K21.9 Gastro-esophageal reflux disease without esophagitis; M19.90 Unspecified osteoarthritis, unspecified site; E11.40 Type 2 diabetes mellitus with diabetic neuropathy, unspecified; E66.9 Obesity, unspecified; Z68.39 Body mass index [BMI] 39.0-39.9, adult; Z99.2 Dependence on renal dialysis; Z88.1 Allergy status to other antibiotic agents; Z88.0 Allergy status to penicillin; Z88.8 Allergy status to other drugs, medicaments and biological substances; Z79.02 Long term (current) use of antithrombotics/antiplatelets; Z79.82 Long term (current) use of aspirin; Z79.84 Long term (current) use of oral hypoglycemic drugs; Z79.899 Other long term (current) drug therapy; Z20.822 Contact with and (suspected) exposure to COVID-19
CPT/HCPCS: 36415; 71045; 80053; 83605; 83880; 84145; 84484; 85025; 93005; 94640; 96374; 96375; 99285; A9270; J1940; J3490; U0002; J7620-GY

== ENCOUNTER 2020-12-28 15:21 | Emergency (ER) | payer MEDICARE, MEDICAID ==
[2020-12-28] MEDS ORDERED: Sodium Chloride 0.9% 10 ML Syringe FLUSH PRN (16:12)
--- NOTE | 2020-12-28 16:23 | EDM.PDOC ---
<Kilo Wilkins - Last Filed: 12/28/20 18:07> ED HPI GENERAL MEDICAL PROBLEM - General Chief Complaint: Genitourinary Problem Stated Complaint: BLADDER ISSUES Time Seen by Provider: 12/28/20 16:05 Source of Information: Reports: Patient, Old Records, RN History Limitations: Reports: No Limitations - History of Present Illness INITIAL COMMENTS - FREE TEXT/NARRATIVE: 60 yo male with stage 5 CRF presents with urine that he describes as chicken soup-like in appearance. His last urine was last yesterday, none today. No fever. Is a little light-headed with standing today. He called the staff at his dialysis center and was told to go to the ER, has not discussed with his primary. Does peritoneal dialysis. Onset: Gradual Onset Date: 12/27/20 Duration: Day(s): (1), Getting Worse Location: Reports: Pelvis Quality: Reports: Pressure (mild lower abd) Severity: Mild Improves with: Reports: None Worsens with: Reports: Other (time) Context: Reports: Other (see HPI) Associated Symptoms: Reports: No Other Symptoms. Denies: Diaphoresis, Fever/Chills, Nausea/Vomiting Treatments PROCESS IMPROVEMENT MANAGER: Reports: Other (see below) (none) - Related Data Allergies Allergy/AdvReac Type Severity Reaction Status Date / Time cephalexin monohydrate Allergy Intermediate Hives Verified 12/28/20 16:32 [From Keflex] penicillin V potassium Allergy Intermediate Hives Verified 12/28/20 16:32 [From Pen-Vee K] atenolol [From Tenormin] Allergy Mild Cannot Verified 12/28/20 16:32 Remember lisinopril [From Zestril] Allergy Mild Cannot Verified 12/28/20 16:32 Remember Home Meds: Home Meds Escitalopram [Lexapro] 10 mg PO DAILY 09/19/14 [History] amLODIPine Besylate [Amlodipine Besylate] 10 mg PO DAILY 09/19/14 [History] Clopidogrel [Plavix] 75 mg PO DAILY 11/03/15 [History] atorvaSTATin [Lipitor] 40 mg PO BEDTIME 11/03/15 [History] Famotidine [Pepcid] 20 mg PO DAILY 12/25/16 [History] Aspirin [Children's Aspirin] 81 mg PO DAILY 09/10/18 [History] Acetaminophen 500 mg PO QID 03/27/19 [History] Cyclobenzaprine HCl 5 mg PO Q8HR PRN 03/27/19 [History] Ferrous Sulfate [Iron] 325 mg PO BID 03/27/19 [History] Nystatin 15 gm TP BID PRN 03/27/19 [History] Tamsulosin [Flomax] 0.4 mg PO BID 03/27/19 [History] carvediloL [Coreg] 25 mg PO BID 03/27/19 [History] hydrALAZINE [Apresoline] 25 mg PO TID 03/27/19 [History] polyethylene glycoL 3350 [Clearlax] 1 dose PO DAILY PRN 03/27/19 [History] Magnesium Chloride [Mag Delay] 64 mg PO BID 04/11/19 [History] Furosemide 80 mg PO DAILY #30 tablet 04/14/19 [Rx] Bumetanide 2 mg PO BID 11/24/20 [History] Calcium Acetate 667 mg PO DAILY 11/24/20 [History] glipiZIDE [Glucotrol XL] 5 mg PO DAILY 11/24/20 [History] Ciprofloxacin HCl [Cipro] 250 mg PO BID #20 tablet 12/28/20 [Rx] Ciprofloxacin [Ciprofloxacin HCl] 250 mg PO BID #11 tablet 12/28/20 [Rx] Past Medical History HEENT History: Reports: Allergic Rhinitis, Impaired Vision Cardiovascular History: Reports: High Cholesterol, Hypertension, PVD Other Cardiovascular History: angiogram Respiratory History: Reports: Sleep Apnea, SOB Gastrointestinal History: Reports: Chronic Diarrhea, GERD Other Gastrointestinal History: due to antx therapy Genitourinary History: Reports: Acute Renal Failure, Chronic Renal Insuffiency, Dialysis, Peritoneal, UTI, Recurrent Other Genitourinary History: dialysis 2 year Musculoskeletal History: Reports: Fracture, Osteoarthritis Neurological History: Reports: CVA, Neuropathy, Diabetic Psychiatric History: Reports: Depression Endocrine/Metabolic History: Reports: Diabetes, Type II, Obesity/BMI 30+ Hematologic History: Reports: None Immunologic History: Reports: None Oncologic (Cancer) History: Reports: None Dermatologic History: Reports: None Other Dermatologic History: toe amp rash from sun - Infectious Disease History Infectious Disease History: Reports: Chicken Pox Other Infectious Disease History: covid vacc - Past Surgical History Head Surgeries/Procedures: Reports: None Cardiovascular Surgical History: Reports: Vascular Surgery Other Cardiovascular Surgeries/Procedures: vein surgery in leg Other Respiratory Surgeries/Procedures: new shortness of breath. GI Surgical History: Reports: Appendectomy Male Surgical History: Reports: Other (See Below) Other Male Surgeries/Procedures: Cystoscopy Musculoskeletal Surgical History: Reports: Amputation Other Musculoskeletal Surgeries/Procedures:: right foot 2nd and 3rd toe amp. 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 Oncologic Surgical History: Reports: None Dermatological Surgical History: Reports: Skin Graft Social & Family History - Family History Family Medical History: No Pertinent Family History - Caffeine Use Caffeine Use: Reports: None ED ROS GENERAL - Review of Systems Review Of Systems: See Below Constitutional: Reports: No Symptoms HEENT: Reports: No Symptoms Respiratory: Reports: No Symptoms Cardiovascular: Reports: Lightheadedness Endocrine: Reports: No Symptoms GI/Abdominal: Reports: No Symptoms : Reports: Dysuria, Other (oliguria, unusual appearance) Musculoskeletal: Reports: No Symptoms Skin: Reports: No Symptoms ED EXAM, RENAL/ - Physical Exam Exam: See Below Exam Limited By: No Limitations General Appearance: Alert, WD/WN, No Apparent Distress, Obese Eye Exam: Bilateral Eye: Normal Inspection Ears: Normal External Exam, Normal Canal, Hearing Grossly Normal, Normal TMs Nose: Normal Inspection, No Blood Throat/Mouth: Normal Inspection, Normal Lips, Normal Oropharynx, Normal Voice, No Airway Compromise Head: Atraumatic, Normocephalic Neck: Normal Inspection Respiratory/Chest: No Respiratory Distress, Lungs Clear, Normal Breath Sounds, No Accessory Muscle Use GI/Abdominal: Normal Bowel Sounds, Soft, Tender (mild suprapubic tenderness) Back Exam: No: CVA Tenderness (R), CVA Tenderness (L) Extremities: Normal Inspection Neurological: Alert, Oriented, CN II-XII Intact, Normal Cognition, No M otor/Sensory Deficits Psychiatric: Normal Affect, Normal Mood Skin Exam: Warm, Dry, Intact, No Rash. No: Normal Color (has color typical of those with chronic renal failure.) Course - Vital Signs Text/Narrative:: Case discussed with Dr. Dudley at [facility] at 1746h - Re-Assessments/Exams Free Text/Narrative Re-Assessment/Exam: 12/28/20 16:48 Bladder scan 362 ml, can't void Departure - Departure Disposition: Home, Self-Care 01 Condition: Fair Clinical Impression: Mild dehydration UTI (urinary tract infection) Qualifiers: Urinary tract infection type: site unspecified Hematuria presence: without hematuria Qualified Code(s): N39.0 - Urinary tract infection, site not specified Hypotension Qualifiers: Hypotension type: unspecified hypotension type Qualified Code(s): I95.9 - Hypotension, unspecified - Discharge Information *PRESCRIPTION DRUG MONITORING PROGRAM REVIEWED*: Not Applicable *COPY OF PRESCRIPTION DRUG MONITORING REPORT IN PATIENT ANKITA: Not Applicable Prescriptions: Ciprofloxacin HCl [Cipro] 250 mg PO BID #20 tablet Ciprofloxacin [Ciprofloxacin HCl] 250 mg PO BID #11 tablet Instructions: Urinary Tract Infection, Adult, [id number] Referrals: Sumanth Hill DIRECTOR IMMUNOLOGY [Primary Care Provider] - Forms: ED Department Discharge Additional Instructions: Take Ciprofloxacin every 12 hrs starting tomorrow AM, Rx to [facility]. Call olivia rrow AM to schedule an appt with your lime sludge mixer. Return if worse, likely best if you can go straight to [facility]. <OfficerMic - Last Filed: 12/28/20 20:02> Course - Vital Signs Last Recorded V/S: Last Vital Signs Temp 97.7 F 12/28/20 16:30 Pulse 81 12/28/20 19:58 Resp 16 12/28/20 16:30 BP 118/77 12/28/20 19:58 Pulse Ox 96 12/28/20 16:30 - Orders/Labs/Meds Orders: Active Orders 24 hr Category Date Time Status Bladder Scan [RC] ASDIRECTED Care 12/28/20 16:17 Active CULTURE URINE [RM] Stat Lab 12/28/20 17:23 Received Sodium Chloride 0.9% [Saline Flush] Med 12/28/20 16:12 Active 10 ml FLUSH ASDIRECTED PRN Saline Lock Insert [OM.PC] Routine Oth 12/28/20 16:12 Ordered Medication Orders Sodium Chloride (Sodium Chloride 0.9% 10 Ml Syringe) 10 ml FLUSH ASDIRECTED PRN PRN Reason: Keep Vein Open Last Admin: 12/28/20 17:51 Dose: 10 ml Documented by: MELISSA Labs: Laboratory Tests 12/28/20 12/28/20 12/28/20 Range/Units 16:22 16:22 16:22 WBC 7.4 (4.5-11.0) K/uL RBC 2.99 L (4.30-5.90) M/uL Hgb 7.8 L (12.0-15.0) g/dL Hct 25.9 L (40.0-54.0) % MCV 87 (80-98) fL MCH 26 L (27-31) pg MCHC 30 L (32-36) % Plt Count 148 L (150-400) K/uL Sodium 136 L (140-148) mmol/L Potassium 4.8 (3.6-5.2) mmol/L Chloride 97 L (100-108) mmol/L Carbon Dioxide 27 (21-32) mmol/L Anion Gap 16.8 H (5.0-14.0) mmol/L BUN 74 H (7-18) mg/dL Creatinine 11.3 H* (0.8-1.3) mg/dL Est Cr Clr Drug Dosing 7.13 mL/min Estimated GFR (MDRD) 5 L (>60) Glucose 224 H (74-106) mg/dL Lactic Acid 1.1 (0.4-2.0) mmol/L Calcium 7.7 L (8.5-10.1) mg/dL Procalcitonin ng/mL Urine Color (YELLOW) Urine Appearance (CLEAR) Urine pH (5.0-8.0) Ur Specific [place] (1.008-1.030) Urine Protein (NEGATIVE) mg/dL Urine Glucose (UA) (NEGATIVE) mg/dL Urine Ketones (NEGATIVE) mg/dL Urine Occult Blood (NEGATIVE) Urine Nitrite (NEGATIVE) Urine Bilirubin (NEGATIVE) Urine Urobilinogen (0.2-1.0) EU/dL Ur Leukocyte Esterase (NEGATIVE) Urine RBC (0-5) Urine WBC (0-5) Ur Epithelial Cells Amorphous Sediment Urine Bacteria Urine Mucus 12/28/20 12/28/20 Range/Units 16:22 17:12 WBC (4.5-11.0) K/uL RBC (4.30-5.90) M/uL Hgb (12.0-15.0) g/dL Hct (40.0-54.0) % MCV (80-98) fL MCH (27-31) pg MCHC (32-36) % Plt Count (150-400) K/uL Sodium (140-148) mmol/L Potassium (3.6-5.2) mmol/L Chloride (100-108) mmol/L Carbon Dioxide (21-32) mmol/L Anion Gap (5.0-14.0) mmol/L BUN (7-18) mg/dL Creatinine (0.8-1.3) mg/dL Est Cr Clr Drug Dosing mL/min Estimated GFR (MDRD) (>60) Glucose (74-106) mg/dL Lactic Acid (0.4-2.0) mmol/L Calcium (8.5-10.1) mg/dL Procalcitonin 0.97 ng/mL Urine Color Yellow (YELLOW) Urine Appearance Cloudy A (CLEAR) Urine pH 5.5 (5.0-8.0) Ur Specific [place] 1.020 (1.008-1.030) Urine Protein >=300 H (NEGATIVE) mg/dL Urine Glucose (UA) Negative (NEGATIVE) mg/dL Urine Ketones Negative (NEGATIVE) mg/dL Urine Occult Blood Moderate H (NEGATIVE) Urine Nitrite Negative (NEGATIVE) Urine Bilirubin Negative (NEGATIVE) Urine Urobilinogen 0.2 (0.2-1.0) EU/dL Ur Leukocyte Esterase Small H (NEGATIVE) Urine RBC 5-10 H (0-5) Urine WBC Packed H (0-5) Ur Epithelial Cells Not seen Amorphous Sediment Not seen Urine Bacteria Many Urine Mucus Rare Meds: Medications Generic Name Dose Route Start Last Admin Trade Name Freq PRN Reason Stop Dose Admin Sodium Chloride 10 ml 12/28/20 16:12 12/28/20 17:51 Sodium Chloride 0.9% 10 Ml Syringe FLUSH 10 ml ASDIRECTED PRN Administration Keep Vein Open Discontinued Medications Generic Name Dose Route Start Last Admin Trade Name Freq PRN Reason Stop Dose Admin Sodium Chloride 1,000 mls @ 1,000 mls/hr 12/28/20 16:54 12/28/20 17:51 Normal Saline IV 12/28/20 17:53 1,000 mls/hr .BOLUS ONE Administration Ciprofloxacin/Dextrose 400 mg/ 200 mls @ 200 mls/hr 12/28/20 17:45 12/28/20 17:59 Premix IV 12/28/20 18:44 200 mls/hr ONETIME ONE Administration Departure - Departure Time of Disposition: 20:02 Sepsis Event Note (ED) - Focused Exam Vital Signs: Vital Signs Temp Pulse Resp BP Pulse Ox 12/28/20 19:58 81 118/77 12/28/20 18:30 73 110/56 L 12/28/20 17:49 74 96/51 L 12/28/20 16:30 97.7 F 76 16 90/51 L 96 12/28/20 15:57 97.7 F 76 16 90/51 L 96 - Assessment/Plan Plan: Took over care from Dr. Wilkins at 1815 Assessment Acuity = acute Site and laterality = urinary tract infection complicated patient with known history of peritoneal dialysis Etiology = probable bacterial cause Manifestations = none Location of injury = Home Lab values = hemoglobin low at 7.8 consistent with normochromic anemia creatinine elevated 11.3 consistent with chronic renal failure stage G5 D lactic acid normal 1.1 procalcitonin slightly elevated 0.97 urinalysis reveals 5-10 RBCs consistent hematuria and packed WBCs consistent with pyuria Plan Dr. Simone Go did call discussed case with nephrology on-call recommend starting ciprofloxacin and IV fluids in the emergency department and then discharged home on ciprofloxacin 250 p.o. twice daily follow-up with nephrology as soon as possible. I did offer hospital admission however he declined at this time This note was dictated using [employer] voice recognition software please call with any questions on syntax or grammar.
[2020-12-28] MEDS ORDERED: Sodium Chloride 0.9% 1,000 ML IV ONE (16:54)
[2020-12-28] MEDS ORDERED: Ciprofloxacin in D5W 400 MG in Premix Bag 1 BAG IV ONE ×2 (17:45)
[2020-12-28 19:58] VITALS: BP 118/77; PULSE 81
== END 2020-12-28 20:20 | disposition home or self-care (01) ==
LOC: JP.ED 15:21
DX: N39.0 Urinary tract infection, site not specified (principal); I95.9 Hypotension, unspecified; E86.0 Dehydration; E78.00 Pure hypercholesterolemia, unspecified; E11.40 Type 2 diabetes mellitus with diabetic neuropathy, unspecified; E11.22 Type 2 diabetes mellitus with diabetic chronic kidney disease; E66.9 Obesity, unspecified; I12.0 Hypertensive chronic kidney disease with stage 5 chronic kidney disease or end stage renal disease; N18.5 Chronic kidney disease, stage 5; Z99.2 Dependence on renal dialysis; Z86.73 Personal history of transient ischemic attack (TIA), and cerebral infarction without residual deficits; Z68.30 Body mass index [BMI] 30.0-30.9, adult; Z88.8 Allergy status to other drugs, medicaments and biological substances; Z88.1 Allergy status to other antibiotic agents; Z88.0 Allergy status to penicillin; Z79.02 Long term (current) use of antithrombotics/antiplatelets; Z79.899 Other long term (current) drug therapy; Z79.82 Long term (current) use of aspirin; Z68.38 Body mass index [BMI] 38.0-38.9, adult
CPT/HCPCS: 36415; 51701; 80048; 81001; 83605; 84145; 85027; 87086; 87088; 87186; 96365; 99284; J0744; J7030

== ENCOUNTER 2020-12-31 13:51 | Emergency (ER) | payer MEDICARE, MEDICAID ==
[2020-12-31 16:19] VITALS: BP 129/62; PULSE 62
[2020-12-31] MEDS ORDERED: Ertapenem 1 GM Vial IM SCH (17:30)
--- NOTE | 2020-12-31 18:04 | EDM.PDOC ---
ED HPI GENERAL MEDICAL PROBLEM - General Chief Complaint: Genitourinary Problem Stated Complaint: UTI Time Seen by Provider: 12/31/20 17:15 Source of Information: Reports: Patient, Family, RN Notes Reviewed History Limitations: Reports: No Limitations - History of Present Illness INITIAL COMMENTS - FREE TEXT/NARRATIVE: 60-year-old male with multiple comorbidities peritoneal dialysis with a history of diabetes peripheral vascular disease amputations and a recent pneumonia successfully treated but no urine infection E. coli with multiple sensitivities but also patient with multiple allergies which is precluded therapy. The Cipro that the patient was on has a ineffectiveness with this bug because of resistance to reflections. I changed to Augmentin this morning but the gabino valverde was concerned about cross-reactivity of allergy with penicillin. I spoke with the home decorator this evening who suggested the patient critically needs medication and that perhaps we could go with ertapenem and given daily for 5 days here in [place]. The usual dose is 1 g daily but the patient is on peritoneal dialysis and the pharmacist reports that it should be limited to 500 daily and so 500 IM is ordered in order to prevent the need for IV and we will initially start a dose here this evening and then continue for the next 4 days and follow with the home decorator. - Related Data Allergies Allergy/AdvReac Type Severity Reaction Status Date / Time cephalexin monohydrate Allergy Intermediate Hives Verified 12/28/20 16:32 [From Keflex] penicillin V potassium Allergy Intermediate Hives Verified 12/28/20 16:32 [From Pen-Vee K] atenolol [From Tenormin] Allergy Mild Cannot Verified 12/28/20 16:32 Remember lisinopril [From Zestril] Allergy Mild Cannot Verified 12/28/20 16:32 Remember amoxicillin Allergy Diarrhea Verified 12/31/20 16:25 Home Meds: Home Meds Escitalopram [Lexapro] 10 mg PO DAILY 09/19/14 [History] amLODIPine Besylate [Amlodipine Besylate] 10 mg PO DAILY 09/19/14 [History] Clopidogrel [Plavix] 75 mg PO DAILY 11/03/15 [History] atorvaSTATin [Lipitor] 40 mg PO BEDTIME 11/03/15 [History] Famotidine [Pepcid] 20 mg PO DAILY 12/25/16 [History] Aspirin [Children's Aspirin] 81 mg PO DAILY 09/10/18 [History] Acetaminophen 500 mg PO QID 03/27/19 [History] Cyclobenzaprine HCl 5 mg PO Q8HR PRN 03/27/19 [History] Ferrous Sulfate [Iron] 325 mg PO BID 03/27/19 [History] Nystatin 15 gm TP BID PRN 03/27/19 [History] Tamsulosin [Flomax] 0.4 mg PO BID 03/27/19 [History] carvediloL [Coreg] 25 mg PO BID 03/27/19 [History] hydrALAZINE [Apresoline] 25 mg PO TID 03/27/19 [History] polyethylene glycoL 3350 [Clearlax] 1 dose PO DAILY PRN 03/27/19 [History] Magnesium Chloride [Mag Delay] 64 mg PO BID 04/11/19 [History] Bumetanide 2 mg PO BID 11/24/20 [History] Calcium Acetate 667 mg PO DAILY 11/24/20 [History] glipiZIDE [Glucotrol XL] 5 mg PO DAILY 11/24/20 [History] Past Medical History HEENT History: Reports: Allergic Rhinitis, Impaired Vision Cardiovascular History: Reports: High Cholesterol, Hypertension, PVD Other Cardiovascular History: angiogram Respiratory History: Reports: Sleep Apnea, SOB Gastrointestinal History: Reports: Chronic Diarrhea, GERD Other Gastrointestinal History: due to antx therapy Genitourinary History: Reports: Acute Renal Failure, Chronic Renal Insuffiency, Dialysis, Peritoneal, UTI, Recurrent Other Genitourinary History: dialysis 2 year Musculoskeletal History: Reports: Fracture, Osteoarthritis Neurological History: Reports: CVA, Neuropathy, Diabetic Psychiatric History: Reports: Depression Endocrine/Metabolic History: Reports: Diabetes, Type II, Obesity/BMI 30+ Hematologic History: Reports: None Immunologic History: Reports: None Oncologic (Cancer) History: Reports: None Dermatologic History: Reports: None Other Dermatologic History: toe amp rash from sun - Infectious Disease History Infectious Disease History: Reports: Chicken Pox Other Infectious Disease History: covid vacc - Past Surgical History Head Surgeries/Procedures: Reports: None HEENT Surgical History: Reports: None Cardiovascular Surgical History: Reports: Vascular Surgery Other Cardiovascular Surgeries/Procedures: vein surgery in leg Respiratory Surgical History: Reports: None Other Respiratory Surgeries/Procedures: new shortness of breath. GI Surgical History: Reports: Appendectomy Male Surgical History: Reports: Other (See Below) Other Male Surgeries/Procedures: Cystoscopy Neurological Surgical History: Reports: None Musculoskeletal Surgical History: Reports: Amputation Other Musculoskeletal Surgeries/Procedures:: right foot 2nd and 3rd toe amp. 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 Oncologic Surgical History: Reports: None Dermatological Surgical History: Reports: Skin Graft Social & Family History - Family History Family Medical History: No Pertinent Family History - Tobacco Use Tobacco Use Status *Q: Current Every Day Tobacco User Years of Tobacco use: 40 Packs/Tins Daily: 0.5 Used Tobacco, but Quit: No - Caffeine Use Caffeine Use: Reports: None - Recreational Drug Use Recreational Drug Use: No ED ROS GENERAL - Review of Systems Review Of Systems: Comprehensive ROS is negative, except as noted in HPI. ED EXAM, RENAL/ - Physical Exam Exam: See Below Text/Narrative:: 60-year-old male obese in nature laying on the gurney with some wheezing but chronic for him. Vital signs are okay. Head exam shows some puffiness about the face but not new or unusual for him. His chest is generally clear on my reevaluation and I do not hear any murmurs. His abdomen is huge and he has peritoneal dialysis cyst catheter in place. Extremities show an amputation Course - Vital Signs Text/Narrative:: 60-year-old male with peritoneal dialysis as urinary tract infection resistant t o the Biaxin he was on and he has multiple allergies. After discussion with his home decorator we elected to treat him with ertapenem at a reduced renal dosing of 500 mg IM daily for the next 5 days On my last examination at about 6:15 PM he is feeling well and has no adverse reaction to the injection it would appear other than it hurts a little bit Last Recorded V/S: Last Vital Signs Temp 36.6 C 12/31/20 16:34 Pulse 62 12/31/20 16:34 Resp 20 12/31/20 16:34 BP 129/62 12/31/20 16:34 Pulse Ox 98 12/31/20 16:34 - Orders/Labs/Meds Orders: Active Orders 24 hr Category Date Time Status Ertapenem [INVanz] Med 12/31/20 17:30 Active 0.5 gm IM Q24H Medication Orders Ertapenem (Ertapenem 1 Gm Vial) 0.5 gm IM Q24H KYLEE Stop: 01/05/21 23:59 Last Admin: 12/31/20 18:05 Dose: 0.5 gm Documented by: EDUARD Meds: Medications Generic Name Dose Route Start Last Admin Trade Name Freq PRN Reason Stop Dose Admin Ertapenem 0.5 gm 12/31/20 17:30 12/31/20 18:05 Ertapenem 1 Gm Vial IM 01/05/21 23:59 0.5 gm Q24H KYLEE Administration Discontinued Medications Generic Name Dose Route Start Last Admin Trade Name Freq PRN Reason Stop Dose Admin Lidocaine HCl 5 ml 12/31/20 17:54 12/31/20 18:06 Lidocaine 1% 5 Ml Sdv INJECT 12/31/20 17:55 5 ml ONETIME ONE Administration Departure - Departure Time of Disposition: 18:30 Disposition: Home, Self-Care 01 Clinical Impression: UTI, Urinary tract infectious disease, CKD (chronic kidney disease) stage 4, GFR 15-29 ml/min - Discharge Information Referrals: Sumanth Hill, POCKET MAKER [Primary Care Provider] - Forms: ED Department Discharge Sepsis Event Note (ED) - Evaluation Sepsis Screening Result: No Definite Risk - Focused Exam Vital Signs: Vital Signs Temp Pulse Resp BP Pulse Ox 12/31/20 16:34 36.6 C 62 20 129/62 98 12/31/20 16:17 36.6 C 62 20 129/62 98 - My Orders Last 24 Hours: My Active Orders 12/31/20 17:30 Ertapenem [INVanz] 0.5 gm IM Q24H - Assessment/Plan Last 24 Hours: My Active Orders 12/31/20 17:30 Ertapenem [INVanz] 0.5 gm IM Q24H
== END 2020-12-31 18:25 | disposition home or self-care (01) ==
LOC: JP.ED 13:51
DX: N39.0 Urinary tract infection, site not specified (principal); E11.22 Type 2 diabetes mellitus with diabetic chronic kidney disease; E11.40 Type 2 diabetes mellitus with diabetic neuropathy, unspecified; I12.9 Hypertensive chronic kidney disease with stage 1 through stage 4 chronic kidney disease, or unspecified chronic kidney disease; N18.4 Chronic kidney disease, stage 4 (severe); E66.9 Obesity, unspecified; E78.00 Pure hypercholesterolemia, unspecified; Z68.38 Body mass index [BMI] 38.0-38.9, adult; Z79.82 Long term (current) use of aspirin; Z79.02 Long term (current) use of antithrombotics/antiplatelets; Z79.899 Other long term (current) drug therapy; Z88.0 Allergy status to penicillin; Z88.1 Allergy status to other antibiotic agents; Z88.8 Allergy status to other drugs, medicaments and biological substances
CPT/HCPCS: 96372; 99283; J1335

== ENCOUNTER 2021-09-25 20:49 | Emergency (ER) | payer MEDICARE, MEDICAID ==
[2021-09-25] MEDS ORDERED: Dextrose 5%-0.45% NaCl 500 ML IV SCH (21:15)
[2021-09-25] MEDS ORDERED: Dextrose 5%-0.45% NaCl 1,000 ML IV SCH (21:45)
[2021-09-25] MEDS ORDERED: Albuterol 0.083% 2.5 MG/3 ML Neb Soln NEB ONE (22:12)
[2021-09-25] MEDS ORDERED: Morphine 2 MG/ML SYRINGE IVPUSH ONE (22:19)
[2021-09-25] MEDS ORDERED: Bumetanide 1 MG/4 ML MDV IVPUSH ONE (22:22)
[2021-09-25] MEDS ORDERED: Dextrose 5% in Water 1,000 ML IV SCH ×3 (22:30→23:00)
[2021-09-25] MEDS ORDERED: Bacitracin Oint 1 GM U/D Packet TOP ONE (22:30)
[2021-09-25] MEDS ORDERED: 50% Dextrose in Water 50 ML Syringe IVPUSH ONE (22:40)
[2021-09-25 22:53] VITALS: BP 156/78; PULSE 91
== END 2021-09-26 ==
LOC: JP.ED 20:49
DX: E11.649 Type 2 diabetes mellitus with hypoglycemia without coma (principal); E11.22 Type 2 diabetes mellitus with diabetic chronic kidney disease; I13.0 Hypertensive heart and chronic kidney disease with heart failure and stage 1 through stage 4 chronic kidney disease, or unspecified chronic kidney disease; N18.4 Chronic kidney disease, stage 4 (severe); I50.9 Heart failure, unspecified; D63.1 Anemia in chronic kidney disease; K21.9 Gastro-esophageal reflux disease without esophagitis; E78.00 Pure hypercholesterolemia, unspecified; E66.9 Obesity, unspecified; Z68.30 Body mass index [BMI] 30.0-30.9, adult; Z88.1 Allergy status to other antibiotic agents; Z88.0 Allergy status to penicillin; Z88.8 Allergy status to other drugs, medicaments and biological substances; Z79.02 Long term (current) use of antithrombotics/antiplatelets; Z79.899 Other long term (current) drug therapy; Z79.82 Long term (current) use of aspirin; Z20.822 Contact with and (suspected) exposure to COVID-19
CPT/HCPCS: 36415; 71045; 71045-26; 80053; 82947; 83880; 84484; 85025; 93005; 93010; 94640; 96374; 96375; 99284; 99285-25; J2270; J3490; J7042; J7060; U0002